=== PATIENT | female | born 1975 | race Caucasian/White ===

== ENCOUNTER → 2016-08-30 | Day surgery (SDC) | payer BC ==
[~2016-08-30] VITALS: Ht 172.7 cm; Wt 79.4 kg
[~2016-08-30] MED LIST: BACT800T OR; BUPIVACAINE HCL 0.5% 30 ML VIAL As Ordered ONE; BUPR1TAB17 PO; BUSP15TA47 PO; CITA20TA4 PO; CLINDAMYCIN 600 MG in APPROPRIATE DILUENT 1 EA IV ONE; FLEXERIL OR; FOLI1TAB OR; HYDR-3713 PO; HYDR-4274 PO; LIDOCAINE 1% SDV INJ 30 ML VIAL As Ordered ONE; LIDOCAINE 2% INJ 100 MG/5 ML SDV (FOR ANES.) As Ordered ONE; LORA1TAB OR; LR 1,000 ML IV SCH; MIDAZOLAM INJ 2 MG/2 ML VIAL (J2250) As Ordered ONE; MULTIVIT PO; NEUR100C OR; NEUR400C OR; OMEP20CA3 PO; ONDANSETRON 4MG/2ML VIAL (J2405) As Ordered ONE; OXAZ15CA2 OR; PERC5TAB8 OR; PROP80TA PO; PROPOFOL 200 MG/20 ML VIAL As Ordered ONE; PROZ20CA OR; THIA100T OR; TOLT1CAP PO; TRAZ100T OR; TRAZ300T2 OR; TRAZ50TA4 PO; TYLENOL #3 OR; WELL200T OR; dexameTHASONE 4 MG/ML 1ML VIAL (J1100) As Ordered ONE; fentaNYL 100 MCG/2 ML INJECTION (J3010) As Ordered ONE
--- NOTE | 2016-08-30 08:24 | RO ---
DATE OF PROCEDURE: 08/30/2016 PREPROCEDURE DIAGNOSIS: Painful retained hardware right foot. POSTPROCEDURE DIAGNOSIS: Painful retained hardware right foot. PROCEDURE: Removal of screw right first metatarsal. SURGEON: Cash Vizcarra DPM GLASS WASHER AND CARRIER: None. ANESTHESIA: Monitored anesthesia care with preoperative injection of 14 mL of 1:1 mixture of 1% lidocaine plain and 1/2% Marcaine plain. ESTIMATED BLOOD LOSS: Minimal. MATERIALS: #4-0 Vicryl, #4-0 Nylon. INJECTABLE: 8 mL lidocaine, 1% plain. COMPLICATIONS: None. CONDITION: Stable. Jennifer Molina is a 41-year-old female who presented to [facility] with complaints of painful prominent screw to her right first metatarsal. She presents today for screw removal. The patient's side and site were identified and marked in the preoperative holding area. Consent was reviewed and obtained. All risks, complications and alternatives to the procedure were explained to the patient in detail and all questions were answered. DESCRIPTION OF PROCEDURE: The patient was brought to the operating room and placed on the operating room table in supine position. Monitored anesthesia care was delivered by the anesthesia team. Preoperative injection of 14 mL of 1:1 mixture of 1% lidocaine plain and 1/2% Marcaine plain were injected to the right foot. The patient received clindamycin preoperatively. The right foot was prepped and draped in normal sterile fashion. Tourniquet was applied to the right ankle and inflated at 250 mmHg. A dorsal incision was drawn over the prominent screw site over the first metatarsal and carried through with a #15 blade. Due to patient movement, there was an additional 8 mL of 1% lidocaine plane injected at the beginning of the procedure. Dissected was carried down until the screw was identified and was removed with a 2.5 Arthrex headless screwdriver. Site was irritated with normal saline. Subcutaneous closure was performed with #4-0 Vicryl and skin closed with #4-0 Nylon. 1 mL Decadron was injected postoperatively. Sterile dressings were applied. Tourniquet was deflated. Patient was brought to postanesthesia care unit with vital signs stable and neurovascular status intact. She will be weight bearing as tolerated. She will followup in office in 2 days.
[2016-08-30 09:05] VITALS: BP 116/67
== END | disposition home or self-care (01) ==
LOC: M SDC 06:00
PROVIDERS: ATTEND Podiatrist Foot & Ankle Surgery
DX: T84.498A Other mechanical complication of other internal orthopedic devices, implants and grafts, initial encounter (principal); I10 Essential (primary) hypertension; F17.210 Nicotine dependence, cigarettes, uncomplicated; Z88.0 Allergy status to penicillin; Z79.899 Other long term (current) drug therapy; F41.9 Anxiety disorder, unspecified; F32.9 Major depressive disorder, single episode, unspecified
CPT/HCPCS: 20680; 84703; J1100; J2250; J2405; J3010

== ENCOUNTER 2016-12-20 10:41 | Emergency (ER) | payer BC ==
[~2016-12-20] VITALS: Ht 172.7 cm; Wt 86.8 kg
[~2016-12-20 10:41] MED LIST changes: -BUPIVACAINE HCL 0.5% 30 ML VIAL As Ordered ONE; -BUPR1TAB17 PO; +BUPR1TAB53 PO; -CLINDAMYCIN 600 MG in APPROPRIATE DILUENT 1 EA IV ONE; -HYDR-4274 PO; +HYDR50TA70 PO; -LIDOCAINE 1% SDV INJ 30 ML VIAL As Ordered ONE; -LIDOCAINE 2% INJ 100 MG/5 ML SDV (FOR ANES.) As Ordered ONE; -LR 1,000 ML IV SCH; -MIDAZOLAM INJ 2 MG/2 ML VIAL (J2250) As Ordered ONE; -ONDANSETRON 4MG/2ML VIAL (J2405) As Ordered ONE; -PROPOFOL 200 MG/20 ML VIAL As Ordered ONE; +TRAZ50TA11 PO; -TRAZ50TA4 PO; -dexameTHASONE 4 MG/ML 1ML VIAL (J1100) As Ordered ONE; -fentaNYL 100 MCG/2 ML INJECTION (J3010) As Ordered ONE
[2016-12-20] MEDS ORDERED: OXAZEPAM 15 MG CAP PO ONE (11:45)
[2016-12-20 11:55] LABS: MEAN CORPUSCULAR HEMOGLOBIN 31.7 pg (27.0-33.0); MEAN CORPUSCULAR HGB CONC 34.4 g/dl (32.0-36.5); MEAN CORPUSCULAR VOLUME 92.2 fl (80.0-96.0); RED CELL DISTRIBUTION WIDTH 13.3 % (11.5-14.5); WHITE BLOOD COUNT 6.2 K/mm3 (4.0-10.0)
[2016-12-20 12:17] LABS: METHADONE URINE NEGATIVE (NEGATIVE)
[2016-12-20 12:21] LABS: CONTROL LINE HCG INT CTR LINE PRESENT
[2016-12-20 12:29] LABS: ALBUMIN 3.4 GM/DL (3.2-5.2); ALBUMIN/GLOBULIN RATIO 0.87 (1.00-1.93); ALKALINE PHOSPHATASE 78 U/L (45-117); ALT/SGPT 38 U/L (12-78); ANION GAP 11 MEQ/L (8-16); AST/SGOT 42 U/L (15-37); BILIRUBIN,DIRECT 0.1 MG/DL (0.0-0.2); BILIRUBIN,TOTAL 0.3 MG/DL (0.2-1.0); BLOOD UREA NITROGEN 7 MG/DL (7-18); CALCIUM LEVEL 9.2 MG/DL (8.5-10.1); CARBON DIOXIDE LEVEL 25 MEQ/L (21-32); CHLORIDE LEVEL 102 MEQ/L (98-107); CREATININE FOR GFR 0.83 MG/DL (0.55-1.02); GLOMERULAR FILTRATION RATE > 60.0 (>58); GLUCOSE, FASTING 96 MG/DL (70-105); POTASSIUM SERUM 3.8 MEQ/L (3.5-5.1); SODIUM LEVEL 138 MEQ/L (136-145); TOTAL PROTEIN 7.3 GM/DL (6.4-8.2)
[2016-12-20 14:07] VITALS: BP 117/85
[2016-12-21] MEDS ORDERED: HYDR50CA2 PO (19:56)
[2016-12-21] MEDS ORDERED: TRAZ50TA11 PO (19:56)
[2016-12-21] MEDS ORDERED: PROP80CA PO (19:56)
== END 2016-12-20 14:08 | disposition home or self-care (01) ==
LOC: M ED 10:41
DX: F41.9 Anxiety disorder, unspecified (principal); F10.10 Alcohol abuse, uncomplicated; Z88.0 Allergy status to penicillin; Z88.5 Allergy status to narcotic agent; Z79.899 Other long term (current) drug therapy
CPT/HCPCS: 36415; 80048; 80076; 80307; 84443; 84703; 85027; 99284; G0480

== ENCOUNTER 2016-12-21 15:12 | Inpatient (IN) | payer BC ==
[~2016-12-21] VITALS: Ht 172.7 cm; Wt 88.7 kg
[2016-12-21 16:40] LABS: MEAN CORPUSCULAR HEMOGLOBIN 31.7 pg (27.0-33.0); MEAN CORPUSCULAR HGB CONC 34.4 g/dl (32.0-36.5); MEAN CORPUSCULAR VOLUME 92.2 fl (80.0-96.0); RED CELL DISTRIBUTION WIDTH 13.3 % (11.5-14.5)
[2016-12-21 16:46] LABS: METHADONE URINE NEGATIVE (NEGATIVE)
[2016-12-21 16:49] LABS: CONTROL LINE HCG INT CTR LINE PRESENT
[2016-12-21 17:11] LABS: ALBUMIN 3.5 GM/DL (3.2-5.2); ALBUMIN/GLOBULIN RATIO 0.88 (1.00-1.93); ALKALINE PHOSPHATASE 81 U/L (45-117); ALT/SGPT 40 U/L (12-78); ANION GAP 11 MEQ/L (8-16); AST/SGOT 45 U/L (15-37); BILIRUBIN,DIRECT < 0.1 MG/DL (0.0-0.2); BILIRUBIN,TOTAL 0.2 MG/DL (0.2-1.0); BLOOD UREA NITROGEN 8 MG/DL (7-18); CALCIUM LEVEL 8.7 MG/DL (8.5-10.1); CARBON DIOXIDE LEVEL 25 MEQ/L (21-32); CHLORIDE LEVEL 102 MEQ/L (98-107); CREATININE FOR GFR 0.95 MG/DL (0.55-1.02); GLOMERULAR FILTRATION RATE > 60.0 (>58); GLUCOSE, FASTING 97 MG/DL (70-105); POTASSIUM SERUM 3.6 MEQ/L (3.5-5.1); SODIUM LEVEL 138 MEQ/L (136-145); TOTAL PROTEIN 7.5 GM/DL (6.4-8.2)
[2016-12-21] MEDS ORDERED: PROP80CA PO (19:56)
[2016-12-21] MEDS ORDERED: TRAZ50TA11 PO (19:56)
[2016-12-21] MEDS ORDERED: HYDR50CA2 PO (19:56)
[2016-12-21] MEDS ORDERED: OXAZEPAM 15 MG CAP PO ONE (20:00)
[2016-12-21] MEDS ORDERED: ONDANSETRON 4 MG ORAL DISINTEGRATING TAB (S0181) PO ONE (20:00)
[2016-12-22] MEDS ORDERED: PHENobarbital 30 MG TAB PO ONE (01:45)
[2016-12-22] MEDS ORDERED: MOM 30ML SUSPENSION UDC PO PRN (05:15)
[2016-12-22] MEDS ORDERED: MAALOX 30 ML SUSP *UDC PO PRN (05:15)
[2016-12-22 05:16] VITALS: BP 124/86
[2016-12-22] MEDS ORDERED: BUPR150T3 PO (06:11)
[2016-12-22] MEDS: PROPRANOLOL 80 MG LA CAP PO SCH (09:46)
[2016-12-22] MEDS: busPIRone 5 MG TAB PO SCH ×2 (09:47→20:33)
[2016-12-22] MEDS: buPROPion **XL** TABLET 150MG (WELLBUTRIN XL) PO SCH (09:47)
[2016-12-22] MEDS: OMEPRAZOLE 20 MG CAP PO SCH (09:47)
[2016-12-22] MEDS: TOLTERODINE TARTRATE 2 MG LA CAP (DETROL LA) PO SCH ×2 (09:47→20:33)
[2016-12-22] MEDS: CitaloPRAM (CeleXA) 10 MG TABLET PO SCH (09:47)
[2016-12-22] MEDS: hydrOXYzine 50 MG TAB PO PRN (09:49)
--- NOTE | 2016-12-22 10:08 | HPEPDOC ---
Medical History and Physical Date of Admission Dec 22, 2016 at 03:13 History and Physical PCP: CAMERON Hernandez. ATTENDING: Dr. Nick Smith . HPI. 41-year-old female admitted to [facility]S [facility] 234 BEDS AT THE [facility] related to unspecified depressive disorder, being medically examined today. Patient is reporting some abdominal pain in the left upper and lower quadrant areas. She reports nausea. Denies vomiting. Patient states she has had some diarrhea. She has not been eating very well. Denies any fevers, chills, weakness, fatigue, VALDOVINOS, CP, SOB, cough, palpitations, abdominal pain, N/V/D or changes in bowel or bladder habits. PMHx: Anxiety Depression Insomnia GERD OAB Hypertension Osteoarthritis NCOG Alcohol use PSHX: Cholecystectomy Cystoscopy Ankle arthroscopy Bunionectomy SOCHX: Resides in: [facility] Marital Status: Kids: 2 Tobacco use: One cigarette every other day ETOH: One half liter of vodka or 6 beers "most days"18 years on and off. States she has quit on her own for 1-2 years at a time. She has been drinking this amount for the past year. Illicit Drugs: Denies IV Drug Use: Denies Tattoos done unprofessionally: Denies FAMHX: Mother: Alive, history of osteoporosis Father: Alive, Parkinson's disease Siblings: 3 brothers Alive, well Children: Alive, well Unexpected deaths due to medical reasons: None. ROS: As noted in HPI, otherwise 11pt ROS of systems reviewed and remarkable only for LMP 12/08/16 PE: GEN: 41 yo F, appears stated age. Well-nourished, well developed. No acute distress. Alert and oriented x 3. Pleasant, interactive. HEENT: Normocephalic, atraumatic. Pupils are equal, round, and reactive to light. Extraocular movements are intact. No nystagmus appreciated. Sclera are nonicteric. Conjunctiva without injection. Nose midline. Nasal turbinates without bogginess. EACs both patent BL. TMs both visualized and parmar with good cone of light, no bulging or erythema. No facial asymmetry. Moist mucous membranes. Dentition fair. Pharynx pink and moist, no cobblestoning. Neck supple , trachea midline. No lymphadenopathy or thyromegaly appreciated. CHEST: Regular rate and rhythm, +S1, +S2 LUNGS: Clear to auscultation bilaterally. No wheezes, rales, or rhonchi. Breathing appears symmetric and easy. Patient is speaking in full sentences. No accessory muscle use. ABD: Round, soft, mild tenderness with palpation in the left upper and lower quadrant, non-distended. +Bowel sounds throughout. No rebound or guarding. No costovertebral angle tenderness. EXT: Pulses 2+ bilaterally dorsalis pedis and radial. No lower extremity edema appreciated. SKIN: [place], dry, warm. Capillary refill <2sec. No rashes. NEURO: Alert and oriented x 3. Cranial nerves III-XII are intact. No focal deficits appreciated. EKG: Pending. A&P: 41-year-old female admitted to COUNTS INCLUDE 234 BEDS AT THE [facility] related to unspecified depressive disorder 1. Psych. Plan per Psychiatry. Obtain baseline EKG to assure the safety of psychiatric medications as they can prolong the QT interval. 2. Nicotine dependence. Patch available. 3. Abdominal pain. Request CBC/CMP/urinalysis/urine culture. CT scan abdomen and pelvis. GI panel. Monitor. 4. Follow up with PCP on discharge. 5. Substance abuse. Withdrawal per psychiatry. Add MVI, Thiamine, and Folic Acid supplementation. 6. Elevated LFT. Recheck CMP. 7. GERD. Continue Prilosec 20 mg daily. 8. Hypertension. Continue propranolol 80 mg by mouth daily. 9. OAB. Continue Detrol 4 mg twice a day. 10. Staff member Sridevi DEJESUS present throughout exam. Vital Signs Vital Signs Date Time Temp Pulse Resp B/P (MAP) Pulse Ox O2 Delivery O2 Flow Rate FiO2 12/22/16 09:46 87 136/96 12/22/16 05:16 98.2 16 12/22/16 01:59 93 Room Air Laboratory Data Labs 24H Laboratory Tests 2 12/21/16 16:02: Anion Gap 11, Glomerular Filtration Rate > 60.0, Calcium Level 8.7, Aspartate Amino Transf (AST/SGOT) 45H, Alanine Aminotransferase (ALT/SGPT) 40, Alkaline Phosphatase 81, Total Bilirubin 0.2, Direct Bilirubin < 0.1, Total Protein 7.5, Albumin 3.5, Albumin/Globulin Ratio 0.88L, Thyroid Stimulating Hormone (TSH) 1.290, Human Chorionic Gonadotropin, Qual NEGATIVE, Salicylates Level < 1.7L, Urine Amphetamines Screen NEGATIVE, Urine Benzodiazepines Screen NEGATIVE, Urine Opiates Screen NEGATIVE, Urine Methadone Screen NEGATIVE, Acetaminophen Level < 2.0L, Urine Barbiturates Screen NEGATIVE, Urine Phencyclidine Screen NEGATIVE, Urine Cocaine Metabolite Screen NEGATIVE, Urine Cannabinoids Screen NEGATIVE, Ethyl Alcohol Level 0.317H CBC/BMP Laboratory Tests 12/21/16 16:02 Red Blood Count 3.96 L, Mean Corpuscular Volume 92.2, Mean Corpuscular Hemoglobin 31.7, Mean Corpuscular Hemoglobin Concent 34.4, Red Cell Distribution Width 13.3 Home Medications Scheduled Bupropion Hcl (Bupropion HCl Xl) 150 Mg Tab, 150 MG PO DAILY for DEPRESSION Buspirone HCl (Buspirone HCl) 15 Mg Tab, 15 MG PO BID Citalopram Hydrobromide (Citalopram Hydrobromide) 20 Mg Tab, 30 MG PO DAILY Hydroxyzine Pamoate (Hydroxyzine Pamoate) 50 Mg Cap, 50 MG PO BID Omeprazole (Omeprazole) 20 Mg Cap, 20 MG PO DAILY Propranolol HCl (Propranolol HCl ER) 80 Mg Cap, 80 MG PO DAILY Tolterodine Tartrate (Tolterodine Tartrate ER) 4 Mg Cap, 4 MG PO BID Trazodone HCl (Trazodone HCl) 50 Mg Tab, 100 MG PO QHS Scheduled PRN Trazodone HCl (Trazodone HCl) 50 Mg Tab, 50 MG PO QHS PRN for SLEEP Allergies Coded Allergies: Penicillins (Verified Allergy, Intermediate, RASH, 08/30/16) Penicillins Cross Reactors (Verified Allergy, Intermediate, RASH, 08/30/16) Codeine (Unverified Allergy, Mild, rash, 08/30/16) Bianka Cheng Dec 22, 2016 10:08
[2016-12-22 10:43] LABS: BASO % 0.3 % (0.0-1.0); EOS # 0.1 K/mm3 (0.0-0.50); EOS % 2.1 % (0.0-3.0); LARGE UNSTAINED CELL # 0.1 K/mm3 (0.0-0.4); LARGE UNSTAINED CELL % 1.7 % (0.0-4.0); LYMPH # 1.7 K/mm3 (1.5-4.5); LYMPH % 29.1 % (24.0-44.0); MEAN CORPUSCULAR HEMOGLOBIN 31.2 pg (27.0-33.0); MEAN CORPUSCULAR HGB CONC 33.7 g/dl (32.0-36.5); MEAN CORPUSCULAR VOLUME 92.6 fl (80.0-96.0); MONO # 0.3 K/mm3 (0.0-0.8); MONO % 5.6 % (0.0-5.0); NEUTROPHILS # 3.4 K/mm3 (1.8-7.7); NEUTROPHILS % 61.3 % (36.0-66.0); PLATELET COUNT, AUTOMATED 228 k/mm3 (150-450); RED CELL DISTRIBUTION WIDTH 13.1 % (11.5-14.5); WHITE BLOOD COUNT 5.5 K/mm3 (4.0-10.0)
[2016-12-22 11:09] LABS: ALBUMIN/GLOBULIN RATIO 0.88 (1.00-1.93); ALKALINE PHOSPHATASE 68 U/L (45-117); ALT/SGPT 30 U/L (12-78); ANION GAP 6 MEQ/L (8-16); AST/SGOT 31 U/L (15-37); BILIRUBIN,TOTAL 0.4 MG/DL (0.2-1.0); BLOOD UREA NITROGEN 10 MG/DL (7-18); CALCIUM LEVEL 8.7 MG/DL (8.5-10.1); CARBON DIOXIDE LEVEL 30 MEQ/L (21-32); CHLORIDE LEVEL 103 MEQ/L (98-107); CREATININE FOR GFR 0.95 MG/DL (0.55-1.02); GLOMERULAR FILTRATION RATE > 60.0 (>58); GLUCOSE, FASTING 113 MG/DL (70-105); POTASSIUM SERUM 4.2 MEQ/L (3.5-5.1); SODIUM LEVEL 139 MEQ/L (136-145); TOTAL PROTEIN 6.4 GM/DL (6.4-8.2)
[2016-12-22 12:07] VITALS: BP 134/98
[2016-12-22] MEDS: ACETAMINOPHEN TAB 650MG DOSE (2X325MG) PO PRN (12:11)
[2016-12-22 12:13] VITALS: BP 134/98
[2016-12-22] MEDS: MULTIVITAMINS/MINERALS THERAP 1 TAB PO SCH (12:58)
[2016-12-22] MEDS: THIAMINE 100 MG TAB PO SCH (12:58)
[2016-12-22] MEDS: FOLIC ACID 1 MG TAB PO SCH (12:59)
--- NOTE | 2016-12-22 17:35 | ECGEPIP ---
Stationary ECG Study [facility] Test Date: 2016-12-22 Pat Name: YOSELIN LYON Department: Room: [place] [address] Gender: F Sql [employer] Developer: RYAN : 1975 Requested By: Bianka Cheng Order Number: [id number] Reading MD: Nick Smith Measurements Intervals [place] Rate: 69 P: 50 WI: 163 QRS: 20 QRSD: 84 T: 10 QT: 430 QTc: 461 Interpretive Statements SINUS RHYTHM MODERATE T-WAVE ABNORMALITY, new from tracing done 11-29-14 Electronically Signed On 12-22-2016 17:35:27 EDT by Nick Smith
[2016-12-22 18:26] VITALS: BP 118/73
--- NOTE | 2016-12-22 18:29 | REP ---
CT ABDOMEN AND PELVIS WITHOUT IV CONTRAST: 12/22/2016. Clinical History: Abdominal pain. There are no prior pertinent studies. Technique: Noncontrast scanning performed with the coronal and sagittal reconstructions. CT abdomen: Lung bases were clear. Heart not enlarged. There is no pericardial thickening or effusion. I see no definite hiatal hernia. No hepatosplenomegaly, focal hepatic or splenic lesion, intrahepatic biliary dilatation or ascites. Clips from prior cholecystectomy noted in the gallbladder fossa. Pancreas without mass, ductal dilatation or adjacent inflammatory change. Adrenal glands are normal. Some scarring posteriorly in the upper pole right kidney with cortical thinning and irregularity. Calcification along the posterior cortex as well in the upper pole on the right. I see no hydronephrosis or hydroureter on the right. The left kidney shows no scar, atrophy or hydronephrosis. No abnormal calcification on either side. The kidneys show no perinephric fluid collection with only minimal stranding, which is normal. The ureters show normal course to the bladder without dilatation or periureteral inflammatory change. Bone windows show no compression deformity of destructive lesion. No posterior element abnormality. Visualized ribs intact. CT pelvis: Bony hips, pelvis, SI joints, sacrum, acetabuli and ischium were all unremarkable. Bladder shows no wall thickening or mass. Uterus anteverted. It is not enlarged. There are a few pelvic phleboliths. Abdominal and pelvic portions of the colon show no sign of colitis, diverticulitis, stricture, or mass. Small bowel loops unremarkable. Just above and posterior to the right side of the uterine fundus is a soft tissue focus suggesting ovary within this. There is a 14 mm dense rim calcification and I could not exclude that this is a dermoid with a calcification likely a tooth. No ventral or inguinal hernia. Pelvic free fluid or adenopathy. No other findings. Impression: 1. No evidence of hydronephrosis, hydroureter, stones in the kidneys, ureters or bladder. 2. Status post cholecystectomy. The pancreas intact. 3. Dense rim calcification in the deep pelvis to the right of the fundus of the uterus in a configuration that suggests a small tooth. I suspect a dermoid. Please correlate with ultrasound. 4. No colitis, diverticulitis, stricture, ascites, abscess, mass or other acute finding. There is no renal, ureteral or bladder stone. No hydronephrosis or hydroureter. Signed by Kelvin Maria MD 12/22/2016 08:17 P
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
[2016-12-22 20:24] VITALS: BP 118/73
[2016-12-22] MEDS: traZODone 50 MG TAB PO PRN (20:33)
[2016-12-22] MEDS: LORazepam 2 MG TAB PO PRN (20:33)
[2016-12-23 08:13] VITALS: BP 121/79
[2016-12-23] MEDS: TOLTERODINE TARTRATE 2 MG LA CAP (DETROL LA) PO SCH ×2 (08:21→20:15)
[2016-12-23] MEDS: THIAMINE 100 MG TAB PO SCH (08:21)
[2016-12-23] MEDS: busPIRone 5 MG TAB PO SCH ×2 (08:21→20:15)
[2016-12-23] MEDS: ACETAMINOPHEN TAB 650MG DOSE (2X325MG) PO PRN ×2 (08:21→23:12)
[2016-12-23] MEDS: MULTIVITAMINS/MINERALS THERAP 1 TAB PO SCH (08:21)
[2016-12-23] MEDS: FOLIC ACID 1 MG TAB PO SCH (08:21)
[2016-12-23] MEDS: LORazepam 2 MG TAB PO PRN ×3 (08:21→15:07)
[2016-12-23] MEDS: OMEPRAZOLE 20 MG CAP PO SCH (08:21)
[2016-12-23] MEDS: PROPRANOLOL 80 MG LA CAP PO SCH (08:22)
[2016-12-23] MEDS: CitaloPRAM (CeleXA) 10 MG TABLET PO SCH (08:22)
[2016-12-23] MEDS: buPROPion **XL** TABLET 150MG (WELLBUTRIN XL) PO SCH (08:22)
[2016-12-23 12:00] VITALS: BP 120/74
[2016-12-23 14:51] VITALS: BP 121/89
[2016-12-23 18:00] VITALS: BP 121/89
--- NOTE | 2016-12-23 19:38 | MHIPNPDOC ---
[facility] Progress Note Progress Note DATE OF SERVICE: 12/23/16 HISTORY: Patient is 41-year-old female voluntary admission who presented to the emergency room after her outpatient provider instructed her to pursue voluntary inpatient treatment for detox and symptoms of anxiety. Patient reports a long standing struggle with alcohol, indicates she consumed approximately 1 liter of "gin and juice" two days prior to admission and consumed one 12 ounce glass of mouthwash day prior to admission. Patient states she was last hospitalized at [facility] in 2010 for alcohol abuse and overdose, notes she has had multiple inpatient/rehabilitation admissions, reports history of suicide attempts beginning age 8 with last attempt being 7 years ago, estimates she has made approximately 10 total suicide attempts, indicates "I usually overdose, when I was 8 I tried to strangle myself, and one time I tried by hanging." Patient reports history of auditory hallucinations involving hearing music, notes last occurred one week ago, and history of visual hallucinations involving seeing spiders and other animals "but only when I'm in withdrawal," notes last experienced symptoms "a couple months ago. Tobacco Cutter met with patient this morning to assess treatment progress on inpatient unit. Patient reports current anxiety level 5/10, depression 2/10, denies suicidal and homicidal ideation, denies auditory and visual hallucinations, and denies urge to engage in self-injurious behavior. Patient states to hand sign writer, "I was doing fine but now I'm getting a headache because of the increased anxiety and having because I'm worried about the extra appointment on the have if I'm forced to go to substance abuse treatment." Tobacco Cutter reassured patient that she would not be "forced" to participate in treatment, however, hand sign writer communicated clearly that patient's outpatient provider has indicated that he feels strongly that patient is in need of substance abuse treatment support in order to avoid relapse. Tobacco Cutter informed patient that the most appropriate level of substance abuse treatment would be inpatient which patient indicated she will not participate in. Patient also stated she will not participate in outpatient treatment, however, was able to verbalize awareness that outpatient provider feels she needs to be in some level of treatment. Patient explained to hand sign writer that she cannot participate in substance abuse treatment because, "it's just one more appointment and I'm too nervous for one more appointment and even if I stop drinking and I have less anxiety I don't need it, I've done the treatment before." Patient denied symptoms of withdrawal at time of interaction noting she feels "better," states she occasionally experiences symptoms of craving in the form of "dreaming that I'm drinking." Patient remains on CIWA protocol, has utilized Ativan this morning with good effect reported. Patient indicates current medication regimen is effective and denies medication side effects, is agreeable to Celexa dose increase in effort to further address symptoms of anxiety and depression. Patient reported some improvement in energy level, indicated appetite is stable, denied challenges with concentration and focus and sleep. Patient denied symptoms of physical pain and presented with no signs of acute distress at time of interaction. Of Note: Tobacco Cutter was informed late afternoon the patient was experiencing AVH. Tobacco Cutter met with patient who stated "sometimes I see my family when my eyes are closed, and sometimes I hear music coming out of the heater in my room." Patient has indicated that she is experienced AVH in the past when going through withdrawal, had already received Ativan. Patient was engageable, brightened, did not appear to be responding to internal stimuli, was redirectable, did not appear to be experiencing distress. Low-dose Zyprexa PRN was made available to patient should symptoms of AVH continue/worsen. Addendum: 12/23/16 Telephone consult completed with Dr. Mosley indicated patient is relatively new to him and he has concerns about the safety and effectiveness of treating patient in the outpatient environment when she is engaging in routine and excessive abuse of alcohol. Dr. Mosley is requesting to be contacted prior to patient's discharge and has indicated that he may be called by regular or weekend providers for treatment recommendations/guidance if needed. VITALS: See below NEW TEST RESULTS: No new results PAST MEDICAL/SURGICAL HISTORY: GERD, OAB, hypertension, osteoarthritis, cholecystectomy, cystoscopy, ankle arthroscopy, bunionectomy. Patient denies history of seizure and head injury. Labs on admission indicate low RBC, Hgb, HCT, anion gap, albumin, AGR, and elevated mono %, and glucose UDS negative, EtOH 0.317 EKG sinus rhythm moderate T-wave abnormality, new from tracing done 11/29/14. She is asymptomatic, clinical consultation completed with recommendation made for outpatient follow-up. Urine culture - pending CT scan abdomen and pelvis - pending CURRENT MEDICATIONS: See below MENTAL STATUS EXAMINATION: General appearance: Patient is a 41-year old female who is cooperative, engageable, makes fair eye contact, appears disheveled, is dressed in hospital clothing, ambulates with steady gait, appears stated age Speech: Of normal rate, rhythm, low volume, spontaneous, coherent. Thought processes: Linear, logical, goal-directed Thought content: Logical, rational, no tangentiality or paranoia noted, perseverative to being too anxious to leave the house/drive. Abstract reasoning and computation: Appear intact. Description of associations: Intact. Description of abnormal or psychotic thoughts: Denies suicidal or homicidal ideation, denies auditory or visual hallucinations, does not appear to be responding to internal stimuli, does not endorse bizarre or paranoid ideation, denies preoccupation with violence or obsessions. Judgment: Poor Insight: Poor Orientation: A and O 3 Recent and remote memory: Appear intact Attention span and concentration: Appear adequate Fund of knowledge: Appear Within normal limits Mood: "Okay but anxious because I feel like people are forcing me to go to substance abuse treatment and I'm going to have more appointments." Patient appears depressed and anxious, no mood lability noted. Affect: Blunted, brightens at times DIAGNOSES: Major depressive disorder, generalized anxiety disorder, alcohol use disorder, rule out substance-induced mood disorder, rule out personality disorder ASSESSMENT: Patient appears to be slowly adjusting to unit, has been visible at times, has not been participating in unit programming but has been cooperative with staff, engageable, and has presented with no behavior management challenges. Patient reiterates today that she is not interested in participating in inpatient, outpatient treatment or in AA upon discharge, is aware that outpatient provider is concerned about her ability to continue to provide psychiatric medication management if she does not seek treatment for her substance abuse problem. Patient indicates current medication regimen is generally effective, is agreeable to antidepressant dose increase in effort to further address symptoms of anxiety and depression, denies medication side effects, and is medication compliant. Patient has utilized Ativan to address symptoms of withdrawal per [place] protocol, will require monitoring to ensure remission of withdrawal symptoms and to monitor frequency of Ativan use. Patient denies symptoms of craving or withdrawal this morning, reiterates she has a history of experiencing sweating and shakiness and AVH while in withdrawal state. Patient denies current suicidal and homicidal ideation and verbalizes awareness of how to access supportive services on the unit if needed. Will increase patient's Celexa today and will continue to monitor patient's response to medications and for medication side effects, will also continue to evaluate patient safety and discharge readiness. Patient indicates when prepared for discharge she would like to return home with and resume outpatient psychotherapy and medication management through [facility]. Patient verbalizes awareness that strong recommendation is being made for her to participate in inpatient/outpatient substance abuse treatment, is declining at this time. Patient is voluntary admission and should she elect to discharge, and if she is stable enough for discharge, outpatient provider, Dr. Mosley, is requesting notification prior to patient's discharge. MANAGEMENT PLAN: Increase Celexa to 40 mg po q am. Continue Wellbutrin XL 150 mg po q am, BuSpar 15 mg po BID, hydroxyzine 50 mg po BJD PRN anxiety, trazodone 50 mg po hs PRN insomnia. Patient is also taking propranolol 80 mg po q am which appears to be prescribed primarily for blood pressure. Initiate med trial Zyprexa 2.5 mg po q 6 hours PRN agitation. Continue CIWA protocol Vitals QID Maintain safety precautions Patient to attend groups and participate in unit programming to develop coping strategies Engage patient in discharge planning process and arrange meeting with support system to ensure safe discharge planning when appropriate Patient to follow up with PCM regarding recent EKG results and any other health concerns upon discharge TIME SPENT COORDINATING CARE: 35 minutes Vital Signs Vital Signs Date Time Temp Pulse Resp B/P (MAP) Pulse Ox O2 Delivery O2 Flow Rate FiO2 12/23/16 18:00 98.9 77 16 121/89 (100) 12/22/16 01:59 93 Room Air Current Medications Current Medications Acetaminophen (Tylenol Tab) 650 mg Q6HP PRN PO HEADACHE or DISCOMFORT Last administered on 12/23/16 08:21; Start 12/22/16 at 05:15; Stop 01/21/17 at 05:14 Al Hydrox/Mg Hydrox/Simethicone (Mylanta) 30 ml Q4HP PRN PO HEARTBURN/ INDIGESTION; Start 12/22/16 at 05:15; Stop 01/21/17 at 05:14 Bupropion HCl (Wellbutrin Xl) 150 mg DAILY PO Last administered on 12/23/16 08 :22; Start 12/22/16 at 09:00; Stop 01/21/17 at 08:59 Buspirone HCl (Buspar) 15 mg BID PO Last administered on 12/23/16 08:21; Start 12/22/16 at 09:00; Stop 01/21/17 at 08:59 Citalopram Hydrobromide (CeleXA) 30 mg DAILY PO Last administered on 12/23/16 08:22; Start 12/22/16 at 09:00; Stop 12/23/16 at 18:20; Status DC Citalopram Hydrobromide (CeleXA) 40 mg DAILY PO ; Start 12/24/16 at 09:00; Stop 01/23/17 at 08:59 Folic Acid (Folic Acid) 1 mg DAILY PO Last administered on 12/23/16 08:21; Start 12/22/16 at 09:00; Stop 01/21/17 at 08:59 Home Med (Med Rec Complete!) ASDIRECTED XX ; Start 12/21/16 at 20:00; Stop at 20:01; Status DC Hydroxyzine HCl (Atarax) 50 mg BIDP PRN PO ANXIETY Last administered on 09:49; Start 12/22/16 at 05:15; Stop 01/21/17 at 05:14 Lorazepam (Ativan) 2 mg ASDIRECTED PRN PO SEE PROTOCOL Last administered on 08:21; Start 12/22/16 at 20:00; Stop 12/29/16 at 19:59 Magnesium Hydroxide (Milk Of Magnesia) 30 ml DAILYPRN PRN PO CONSTIPATION; Start 12/22/16 at 05:15; Stop 01/21/17 at 05:14 Multivitamins (Theragram-M) 1 tab DAILY PO Last administered on 12/23/16 08:21 ; Start 12/22/16 at 09:00; Stop 01/21/17 at 08:59 Olanzapine (ZyPREXA) 2.5 mg Q6HP PRN PO AGITATION; Start 12/23/16 at 18:15; Stop 01/22/17 at 18:14 Omeprazole (PriLOSEC) 20 mg DAILY PO Last administered on 12/23/16 08:21; Start 12/22/16 at 09:00; Stop 01/21/17 at 08:59 Propranolol HCl (Inderal La) 80 mg DAILY PO Last administered on 12/23/16 08: 22; Start 12/22/16 at 09:00; Stop 01/21/17 at 08:59 Thiamine HCl (Thiamine HCl) 100 mg DAILY PO Last administered on 12/23/16 08: 21; Start 12/22/16 at 09:00; Stop 01/21/17 at 08:59 Tolterodine Tartrate (Detrol La) 4 mg BID PO Last administered on 12/23/16 08: 21; Start 12/22/16 at 09:00; Stop 01/21/17 at 08:59 Trazodone HCl (Desyrel) 50 mg QHSP PRN PO INSOMNIA Last administered on 20:33; Start 12/22/16 at 05:15; Stop 01/21/17 at 05:14 Allergies Coded Allergies: Penicillins (Verified Allergy, Intermediate, RASH, 08/30/16) Penicillins Cross Reactors (Verified Allergy, Intermediate, RASH, 08/30/16) Codeine (Unverified Allergy, Mild, rash, 08/30/16) Cat Robin Dec 23, 2016 19:38
[2016-12-23] MEDS: traZODone 50 MG TAB PO PRN (20:15)
[2016-12-23] MEDS: hydrOXYzine 50 MG TAB PO PRN (20:15)
[2016-12-23 20:38] VITALS: BP 121/89
[2016-12-24] VITALS (8 sets, daily range): BP systolic 109–132; BP diastolic 77–90
[2016-12-24] MEDS: OLANZapine 2.5MG TABLET PO PRN ×2 (00:49→15:21)
[2016-12-24] MEDS: LORazepam 2 MG TAB PO PRN ×4 (03:15→21:19)
--- NOTE | 2016-12-24 08:50 | MHIPNPDOC ---
[facility] Progress Note Progress Note DATE OF SERVICE: 12/24/16 HISTORY: day 3 of admission.Patient is 41-year-old female voluntary admission who presented to the emergency room after her outpatient provider instructed her to pursue voluntary inpatient treatment for detox and symptoms of anxiety. Patient reports a long standing struggle with alcohol, indicates she consumed approximately 1 liter of "gin and juice" two days prior to admission and consumed one 12 ounce glass of mouthwash day prior to admission. Patient states she was last hospitalized at [facility] in 2010 for alcohol abuse and overdose, notes she has had multiple inpatient/rehabilitation admissions, reports history of suicide attempts beginning age 8 with last attempt being 7 years ago, estimates she has made approximately 10 total suicide attempts, indicates "I usually overdose, when I was 8 I tried to strangle myself, and one time I tried by hanging." Patient reports history of auditory hallucinations involving hearing music, notes last occurred one week ago, and history of visual hallucinations involving seeing spiders and other animals "but only when I'm in withdrawal," notes last experienced symptoms "a couple months ago. VITAL SIGNS: See below. NEW TEST RESULTS: na CURRENT MEDICATIONS: See below. MENTAL STATUS EXAMINATION: Patient is a 41-year old female, who is wearing hospital attire, reading in her room, alert and talkative, asking questions. Speech: Is clear and logical Language skills are grossly intact Thought processes including: organized and goal directed Thought content: appropriate. Abstract reasoning, and computation: good. Description of associations: good. Description of abnormal or psychotic thoughts: no psychotic symptoms illicted or reported. Pt is no longer considering suicide. Pt denies hearing voices or music in her head today. Judgment: fair. Insight: good. Orientation: oriented to surroundings, place, time and person Recent and remote memory: appears intact. Attention span and concentration: adequate during interaction Fund of knowledge: full Mood: euthymic Affect: congruent. DIAGNOSES: Major depressive disorder, generalized anxiety disorder, alcohol use disorder, rule out substance-induced mood disorder, rule out personality disorder ASSESSMENT:pt interviewed in the absence of her usual provider. She is withdrawing from alcohol intoxication without difficulty. She did request Nicorette gum which was provided for her. Pt asked about applying for SSDI benefits as she stated she wanted to contribute to the family. [employer] provided details including obtaining the form from the office. Pt informed that most claims are denied the first time around but she may appeal. It was explained the process can take several years before benefits are received. Pt encouraged to be patient, persistent and to remain engaged in treatment. pt remained in her room most of the day. observed in the milieu after lunch. expected her family to be here today for a family meeting. appeals writer not aware it this transpired or not. MANAGEMENT PLAN: 12/23/16 Telephone consult completed with Dr. Mosley indicated patient is relatively new to him and he has concerns about the safety and effectiveness of treating patient in the outpatient environment when she is engaging in routine and excessive abuse of alcohol. Dr. Mosley is requesting to be contacted prior to patient's discharge and has indicated that he may be called by regular or weekend providers for treatment recommendations/guidance if needed. Continue CIWA protocol. Continue close observation. Encourage participation in therapeutic milieu. TIME SPENT: 15 minutes. Vital Signs Vital Signs Date Time Temp Pulse Resp B/P (MAP) Pulse Ox O2 Delivery O2 Flow Rate FiO2 12/24/16 06:29 97.0 79 16 119/80 (93) 12/22/16 01:59 93 Room Air Current Medications Current Medications Acetaminophen (Tylenol Tab) 650 mg Q6HP PRN PO HEADACHE or DISCOMFORT Last administered on 12/23/16 23:12; Start 12/22/16 at 05:15; Stop 01/21/17 at 05:14 Al Hydrox/Mg Hydrox/Simethicone (Mylanta) 30 ml Q4HP PRN PO HEARTBURN/ INDIGESTION; Start 12/22/16 at 05:15; Stop 01/21/17 at 05:14 Bupropion HCl (Wellbutrin Xl) 150 mg DAILY PO Last administered on 12/23/16 08 :22; Start 12/22/16 at 09:00; Stop 01/21/17 at 08:59 Buspirone HCl (Buspar) 15 mg BID PO Last administered on 12/23/16 20:15; Start 12/22/16 at 09:00; Stop 01/21/17 at 08:59 Citalopram Hydrobromide (CeleXA) 30 mg DAILY PO Last administered on 12/23/16 08:22; Start 12/22/16 at 09:00; Stop 12/23/16 at 18:20; Status DC Citalopram Hydrobromide (CeleXA) 40 mg DAILY PO ; Start 12/24/16 at 09:00; Stop 01/23/17 at 08:59 Folic Acid (Folic Acid) 1 mg DAILY PO Last administered on 12/23/16 08:21; Start 12/22/16 at 09:00; Stop 01/21/17 at 08:59 Home Med (Med Rec Complete!) ASDIRECTED XX ; Start 12/21/16 at 20:00; Stop at 20:01; Status DC Hydroxyzine HCl (Atarax) 50 mg BIDP PRN PO ANXIETY Last administered on 20:15; Start 12/22/16 at 05:15; Stop 01/21/17 at 05:14 Lorazepam (Ativan) 2 mg ASDIRECTED PRN PO SEE PROTOCOL Last administered on 03:15; Start 12/22/16 at 20:00; Stop 12/29/16 at 19:59 Magnesium Hydroxide (Milk Of Magnesia) 30 ml DAILYPRN PRN PO CONSTIPATION; Start 12/22/16 at 05:15; Stop 01/21/17 at 05:14 Multivitamins (Theragram-M) 1 tab DAILY PO Last administered on 12/23/16 08:21 ; Start 12/22/16 at 09:00; Stop 01/21/17 at 08:59 Nicotine (Nicorette) 2 mg Q4HP PRN PO NICOTINE WITHDRAWAL; Start 12/24/16 at 08 :30; Stop 01/23/17 at 08:29 Olanzapine (ZyPREXA) 2.5 mg Q6HP PRN PO AGITATION Last administered on 00:49; Start 12/23/16 at 18:15; Stop 01/22/17 at 18:14 Omeprazole (PriLOSEC) 20 mg DAILY PO Last administered on 12/23/16 08:21; Start 12/22/16 at 09:00; Stop 01/21/17 at 08:59 Propranolol HCl (Inderal La) 80 mg DAILY PO Last administered on 12/23/16 08: 22; Start 12/22/16 at 09:00; Stop 01/21/17 at 08:59 Thiamine HCl (Thiamine HCl) 100 mg DAILY PO Last administered on 12/23/16 08: 21; Start 12/22/16 at 09:00; Stop 01/21/17 at 08:59 Tolterodine Tartrate (Detrol La) 4 mg BID PO Last administered on 12/23/16 20: 15; Start 12/22/16 at 09:00; Stop 01/21/17 at 08:59 Trazodone HCl (Desyrel) 50 mg QHSP PRN PO INSOMNIA Last administered on 20:15; Start 12/22/16 at 05:15; Stop 01/21/17 at 05:14 Allergies Coded Allergies: Penicillins (Verified Allergy, Intermediate, RASH, 08/30/16) Penicillins Cross Reactors (Verified Allergy, Intermediate, RASH, 08/30/16) Codeine (Unverified Allergy, Mild, rash, 08/30/16) Anitha Bennett Dec 24, 2016 08:50
[2016-12-24] MEDS: TOLTERODINE TARTRATE 2 MG LA CAP (DETROL LA) PO SCH ×2 (08:58→21:04)
[2016-12-24] MEDS: busPIRone 5 MG TAB PO SCH ×2 (08:58→21:04)
[2016-12-24] MEDS: THIAMINE 100 MG TAB PO SCH (08:59)
[2016-12-24] MEDS: CitaloPRAM (CeleXA) 10 MG TABLET PO SCH (08:59)
[2016-12-24] MEDS: hydrOXYzine 50 MG TAB PO PRN ×2 (08:59→21:04)
[2016-12-24] MEDS: OMEPRAZOLE 20 MG CAP PO SCH (08:59)
[2016-12-24] MEDS: buPROPion **XL** TABLET 150MG (WELLBUTRIN XL) PO SCH (08:59)
[2016-12-24] MEDS: MULTIVITAMINS/MINERALS THERAP 1 TAB PO SCH (08:59)
[2016-12-24] MEDS: PROPRANOLOL 80 MG LA CAP PO SCH (08:59)
[2016-12-24] MEDS: FOLIC ACID 1 MG TAB PO SCH (08:59)
[2016-12-24] MEDS: NICOTINE POLACRILEX 2 MG GUM PO PRN (13:33)
[2016-12-24] MEDS: ACETAMINOPHEN TAB 650MG DOSE (2X325MG) PO PRN (15:23)
--- NOTE | 2016-12-24 16:48 | REP ---
PELVIC ULTRASOUND: Real-time sonographic evaluation of the pelvis performed utilizing transabdominal and endovaginal technique. The bladder measures 9.6 x 4.6 x 6.8 cm. The uterus measures 9.5 x 4.4 x 5.0 cm. Endometrial thickness is 6 mm. Focal hyperechoic area in the endometrial cavity measures 8 x 5 x 9 mm suspicious for an endometrial polyp. There is no endometrial fluid. The right ovary measures 2.4 x 1.8 x 2.9 cm and contains an 8 mm calcification. Left ovary measures 2.3 x 2.7 x 2.6 cm. There is no other evidence of adnexal mass. There is no free fluid. There is no evidence of ovarian torsion with both lobes seen in each ovary with duplex Doppler evaluation, RI right ovary 0.50 and left ovary 0.59. IMPRESSION: Suspect 9 mm endometrial polyp. 8 mm calcification within the right ovary without associated mass. This is benign. Signed by Jw Hess MD 12/24/2016 04:52 P
[2016-12-24] MEDS ORDERED: HALOPERIDOL 2 MG TAB PO PRN (19:30)
[2016-12-24] MEDS ORDERED: LORazepam 1 MG TAB PO PRN (19:30)
[2016-12-24] MEDS: traZODone 50 MG TAB PO PRN (21:04)
[2016-12-24] MEDS ORDERED: HALOPERIDOL 2 MG TAB PO STA (22:27)
[2016-12-24] MEDS: OXAZEPAM 15 MG CAP PO SCH (23:20)
[2016-12-25] VITALS (8 sets, daily range): BP systolic 105–133; BP diastolic 69–88
[2016-12-25] MEDS ORDERED: HALOPERIDOL 2 MG TAB PO PRN
[2016-12-25] MEDS: OXAZEPAM 15 MG CAP PO SCH ×4 (06:21→23:09)
[2016-12-25] MEDS: MULTIVITAMINS/MINERALS THERAP 1 TAB PO SCH (09:39)
[2016-12-25] MEDS: busPIRone 5 MG TAB PO SCH ×2 (09:39→20:38)
[2016-12-25] MEDS: CitaloPRAM (CeleXA) 10 MG TABLET PO SCH (09:40)
[2016-12-25] MEDS: FOLIC ACID 1 MG TAB PO SCH (09:40)
[2016-12-25] MEDS: buPROPion **XL** TABLET 150MG (WELLBUTRIN XL) PO SCH (09:40)
[2016-12-25] MEDS: OMEPRAZOLE 20 MG CAP PO SCH (09:40)
[2016-12-25] MEDS: TOLTERODINE TARTRATE 2 MG LA CAP (DETROL LA) PO SCH ×2 (09:40→20:37)
[2016-12-25] MEDS: PROPRANOLOL 80 MG LA CAP PO SCH (09:40)
[2016-12-25] MEDS: THIAMINE 100 MG TAB PO SCH (09:40)
[2016-12-25] MEDS: hydrOXYzine 50 MG TAB PO PRN ×2 (09:42→23:10)
[2016-12-25] MEDS: traZODone 50 MG TAB PO PRN (23:10)
[2016-12-26 06:10] VITALS: BP 123/80
[2016-12-26] MEDS: OXAZEPAM 15 MG CAP PO SCH ×4 (06:14→23:51)
[2016-12-26] MEDS: FOLIC ACID 1 MG TAB PO SCH (08:14)
[2016-12-26] MEDS: busPIRone 5 MG TAB PO SCH ×2 (08:14→20:55)
[2016-12-26] MEDS: THIAMINE 100 MG TAB PO SCH (08:14)
[2016-12-26] MEDS: CitaloPRAM (CeleXA) 10 MG TABLET PO SCH (08:14)
[2016-12-26] MEDS: MULTIVITAMINS/MINERALS THERAP 1 TAB PO SCH (08:14)
[2016-12-26] MEDS: OMEPRAZOLE 20 MG CAP PO SCH (08:14)
[2016-12-26] MEDS: buPROPion **XL** TABLET 150MG (WELLBUTRIN XL) PO SCH (08:15)
[2016-12-26] MEDS: PROPRANOLOL 80 MG LA CAP PO SCH (08:15)
[2016-12-26] MEDS: TOLTERODINE TARTRATE 2 MG LA CAP (DETROL LA) PO SCH ×2 (08:15→20:54)
[2016-12-26] MEDS: ACETAMINOPHEN TAB 650MG DOSE (2X325MG) PO PRN (08:16)
[2016-12-26 10:39] VITALS: BP 123/80
[2016-12-26] MEDS: NICOTINE POLACRILEX 2 MG GUM PO PRN (11:35)
[2016-12-26 12:00] VITALS: BP 128/86
[2016-12-26 18:25] VITALS: BP 126/82
[2016-12-26] MEDS: traZODone 50 MG TAB PO PRN (22:55)
[2016-12-27] MEDS: OXAZEPAM 15 MG CAP PO SCH ×4 (06:24→23:00)
[2016-12-27 06:45] VITALS: BP 133/78
[2016-12-27 08:15] VITALS: BP 133/78
[2016-12-27] MEDS: TOLTERODINE TARTRATE 2 MG LA CAP (DETROL LA) PO SCH ×2 (08:47→21:00)
[2016-12-27] MEDS: PROPRANOLOL 80 MG LA CAP PO SCH (08:48)
[2016-12-27] MEDS: OMEPRAZOLE 20 MG CAP PO SCH (08:48)
[2016-12-27] MEDS: MULTIVITAMINS/MINERALS THERAP 1 TAB PO SCH (08:48)
[2016-12-27] MEDS: busPIRone 5 MG TAB PO SCH ×2 (08:48→21:00)
[2016-12-27] MEDS: FOLIC ACID 1 MG TAB PO SCH (08:48)
[2016-12-27] MEDS: THIAMINE 100 MG TAB PO SCH (08:48)
[2016-12-27] MEDS: buPROPion **XL** TABLET 150MG (WELLBUTRIN XL) PO SCH (08:48)
[2016-12-27] MEDS: CitaloPRAM (CeleXA) 10 MG TABLET PO SCH (08:48)
[2016-12-27] MEDS: NICOTINE POLACRILEX 2 MG GUM PO PRN (13:10)
[2016-12-27] MEDS: ACETAMINOPHEN TAB 650MG DOSE (2X325MG) PO PRN (15:57)
[2016-12-27 18:00] VITALS: BP 119/63
--- NOTE | 2016-12-27 18:22 | MHIPNPDOC ---
[facility] Progress Note Progress Note DATE OF SERVICE: 12/27/16 HISTORY: Patient is 41-year-old female voluntary admission who presented to the emergency room after her outpatient provider instructed her to pursue voluntary inpatient treatment for detox and symptoms of anxiety. Patient reports a long standing struggle with alcohol, indicates she consumed approximately 1 liter of "gin and juice" two days prior to admission and consumed one 12 ounce glass of mouthwash day prior to admission. Patient states she was last hospitalized at [facility] in 2010 for alcohol abuse and overdose, notes she has had multiple inpatient/rehabilitation admissions, reports history of suicide attempts beginning age 8 with last attempt being 7 years ago, estimates she has made approximately 10 total suicide attempts, indicates "I usually overdose, when I was 8 I tried to strangle myself, and one time I tried by hanging." Patient reports history of auditory hallucinations involving hearing music, notes last occurred one week ago, and history of visual hallucinations involving seeing spiders and other animals "but only when I'm in withdrawal," notes last experienced symptoms "a couple months ago. Marketing Assistant Manager met with patient this morning to assess treatment progress on inpatient unit. Patient reports current anxiety level 12/06, depression 01/06, denies suicidal and homicidal ideation, denies auditory and visual hallucinations, and denies urge to engage in self-injurious behavior. Patient states to parts data writer, "I feel fine physically, I'm just depressed and anxious because now I been locked out of my room and I'm being treated poorly when there is no reason for it." Patient expresses desire to be discharged, is reminded that she is voluntary but strongly encouraged to stay to continue process of withdrawal. Patient was reminded that outpatient provider has indicated that if she does not participate in substance abuse treatment he feels he is not sure he can safely provide outpatient medication management. Patient is again strongly encouraged to participate in at least outpatient substance abuse treatment, if not inpatient substance abuse treatment. She continues to minimize need, initially denies and then agrees to participate in outpatient substance abuse treatment. Patient reiterates concerns about having "one more appointments" she has to go to, indicates this increases her anxiety level. Patient informs parts data writer she does not feel she is withdrawing any longer, however, continues to utilize Serax to address symptoms of "anxiety." Marketing Assistant Manager asked patient about changes to medications over weekend and report that she had been crawling on bedroom floor , patient provides no explanation. Patient remains on CIWA protocol. Patient indicates current medication regimen is effective and denies need for dosing adjustment, denies medication side effects. Patient reported some improvement in energy level, indicated appetite is stable, denied challenges with concentration and focus and sleep. Patient denied symptoms of physical pain and presented with no signs of acute distress at time of interaction. Addendum: 12/23/16 Telephone consult completed with Dr. Mosley indicated patient is relatively new to him and he has concerns about the safety and effectiveness of treating patient in the outpatient environment when she is engaging in routine and excessive abuse of alcohol. Dr. Mosley is requesting to be contacted prior to patient's discharge and has indicated that he may be called by regular or weekend providers for treatment recommendations/guidance if needed. VITALS: See below NEW TEST RESULTS: No new results PAST MEDICAL/SURGICAL HISTORY: GERD, OAB, hypertension, osteoarthritis, cholecystectomy, cystoscopy, ankle arthroscopy, bunionectomy. Patient denies history of seizure and head injury. Labs on admission indicate low RBC, Hgb, HCT, anion gap, albumin, AGR, and elevated mono %, and glucose UDS negative, EtOH 0.317 EKG sinus rhythm moderate T-wave abnormality, new from tracing done 11/29/14. She is asymptomatic, clinical consultation completed with recommendation made for outpatient follow-up. 12/22/16 CT scan abdomen and pelvis - refer to EMR for results 12/24/16 pelvic ultrasound - Suspect 9 mm endometrial polyp. 8 mm calcification within the right ovary without associated mass. This is benign. CURRENT MEDICATIONS: See below MENTAL STATUS EXAMINATION: General appearance: Patient is a 41-year old female who is irritable but cooperative, engageable, makes fair eye contact, exhibits adequate personal hygiene, is dressed in hospital clothing, ambulates with steady gait, appears stated age Speech: Of normal rate, rhythm, low volume, spontaneous, coherent. Thought processes: Linear, logical, goal-directed Thought content: Logical, rational, no tangentiality or paranoia noted, perseverative to being too anxious to leave the house/drive. Abstract reasoning and computation: Appear intact. Description of associations: Intact. Description of abnormal or psychotic thoughts: Denies suicidal or homicidal ideation, denies auditory or visual hallucinations, does not appear to be responding to internal stimuli, does not endorse bizarre or paranoid ideation, denies preoccupation with violence or obsessions. Judgment: Poor Insight: Poor Orientation: A and O 3 Recent and remote memory: Appear intact Attention span and concentration: Appear adequate Fund of knowledge: Appear Within normal limits Mood: "Okay but anxious because I feel like people are forcing me to do things and now I'm locked out of my room." Patient appears somewhat less depressed and anxious, no mood lability noted. Affect: Blunted, brightens X one, congruent with mood DIAGNOSES: Major depressive disorder, generalized anxiety disorder, alcohol use disorder, rule out substance-induced mood disorder, rule out personality disorder ASSESSMENT: Patient appears to be slowly adjusting to unit, has been visible at times, has not been participating in unit programming but has been cooperative with staff, engageable, and has presented with no behavior management challenges. Patient reiterates today that she is not interested in participating in inpatient, outpatient treatment or in AA upon discharge, is aware that outpatient provider is concerned about her ability to continue to provide psychiatric medication management if she does not seek treatment for her substance abuse problem. Patient indicates current medication regimen is generally effective, denies medication side effects, and is medication compliant. Patient is now being prescribed Serax to address symptoms of withdrawal per [facility] protocol, indicates she no longer needs Serax and states she plans to refuse, was advised of potential adverse effects of abrupt discontinuation during alcohol withdrawal. Patient denies symptoms of craving or withdrawal this morning, denies current suicidal and homicidal ideation and verbalizes awareness of how to access supportive services on the unit if needed. Will continue to monitor patient's response to medications and for medication side effects, will also continue to evaluate patient safety and discharge readiness. Patient indicates when prepared for discharge she would like to return home with and resume outpatient psychotherapy and medication management through [facility]. Patient verbalizes awareness that strong recommendation is being made for her to participate in inpatient/ outpatient substance abuse treatment, is today agreeing to attend outpatient substance abuse treatment. Patient is voluntary admission and when she elects to discharge, and is stable enough for discharge, outpatient provider, Dr. Mosley , is requesting notification prior to patient's discharge. MANAGEMENT PLAN: Continue Celexa 40 mg po q am, Wellbutrin XL 150 mg po q am, BuSpar 15 mg po BID, hydroxyzine 50 mg po BJD PRN anxiety, trazodone 50 mg po hs PRN insomnia. Patient is also taking propranolol 80 mg po q am which appears to be prescribed primarily for blood pressure. Continue Serax 30 mg po q 6 hours with plan to taper and discontinue as tolerated by patient. Continue CIWA protocol Vitals QID Maintain safety precautions Patient to attend groups and participate in unit programming to develop coping strategies Engage patient in discharge planning process and arrange meeting with support system to ensure safe discharge planning when appropriate Patient to follow up with PCM regarding recent EKG results and any other health concerns upon discharge TIME SPENT COORDINATING CARE: 35 minutes Vital Signs Vital Signs Date Time Temp Pulse Resp B/P (MAP) Pulse Ox O2 Delivery O2 Flow Rate FiO2 12/27/16 08:48 84 125/76 12/27/16 06:45 99.0 18 12/22/16 01:59 93 Room Air Current Medications Current Medications Acetaminophen (Tylenol Tab) 650 mg Q6HP PRN PO HEADACHE or DISCOMFORT Last administered on 12/27/16 15:57; Start 12/22/16 at 05:15; Stop 01/21/17 at 05:14 Al Hydrox/Mg Hydrox/Simethicone (Mylanta) 30 ml Q4HP PRN PO HEARTBURN/ INDIGESTION; Start 12/22/16 at 05:15; Stop 01/21/17 at 05:14 Bupropion HCl (Wellbutrin Xl) 150 mg DAILY PO Last administered on 12/27/16 08 :48; Start 12/22/16 at 09:00; Stop 01/21/17 at 08:59 Buspirone HCl (Buspar) 15 mg BID PO Last administered on 12/27/16 08:48; Start 12/22/16 at 09:00; Stop 01/21/17 at 08:59 Citalopram Hydrobromide (CeleXA) 30 mg DAILY PO Last administered on 12/23/16 08:22; Start 12/22/16 at 09:00; Stop 12/23/16 at 18:20; Status DC Citalopram Hydrobromide (CeleXA) 40 mg DAILY PO Last administered on 12/27/16 08:48; Start 12/24/16 at 09:00; Stop 01/23/17 at 08:59 Folic Acid (Folic Acid) 1 mg DAILY PO Last administered on 12/27/16 08:48; Start 12/22/16 at 09:00; Stop 01/21/17 at 08:59 Haloperidol (Haldol) 2 mg Q4HP PRN PO HALLUCINATIONS/AGITATION; Start 12/25/16 at 00:00; Stop 01/23/17 at 19:29 Haloperidol (Haldol) 2 mg Q6HP PRN PO HALLUCINATIONS/AGITATION Last administered on 12/24/16 19:40; Start 12/24/16 at 19:30; Stop 12/24/16 at 21:58 ; Status DC Haloperidol (Haldol) 2 mg STAT STAT PO Last administered on 12/24/16 22:39; Start 12/24/16 at 22:27; Stop 12/24/16 at 22:29; Status DC Home Med (Med Rec Complete!) ASDIRECTED XX ; Start 12/21/16 at 20:00; Stop at 20:01; Status DC Hydroxyzine HCl (Atarax) 50 mg BIDP PRN PO ANXIETY Last administered on 23:10; Start 12/22/16 at 05:15; Stop 01/21/17 at 05:14 Lorazepam (Ativan) 1 mg Q6HP PRN PO ANXIETY; Start 12/24/16 at 19:30; Stop at 19:47; Status DC Lorazepam (Ativan) 2 mg ASDIRECTED PRN PO SEE PROTOCOL Last administered on 21:19; Start 12/22/16 at 20:00; Stop 12/29/16 at 19:59 Magnesium Hydroxide (Milk Of Magnesia) 30 ml DAILYPRN PRN PO CONSTIPATION; Start 12/22/16 at 05:15; Stop 01/21/17 at 05:14 Multivitamins (Theragram-M) 1 tab DAILY PO Last administered on 12/27/16 08:48 ; Start 12/22/16 at 09:00; Stop 01/21/17 at 08:59 Nicotine (Nicorette) 2 mg Q4HP PRN PO NICOTINE WITHDRAWAL Last administered on 12/27/16 13:10; Start 12/24/16 at 08:30; Stop 01/23/17 at 08:29 Olanzapine (ZyPREXA) 2.5 mg Q6HP PRN PO AGITATION Last administered on 15:21; Start 12/23/16 at 18:15; Stop 12/24/16 at 21:35; Status DC Omeprazole (PriLOSEC) 20 mg DAILY PO Last administered on 12/27/16 08:48; Start 12/22/16 at 09:00; Stop 01/21/17 at 08:59 Oxazepam (Serax) 30 mg Q6H PO Last administered on 12/27/16 06:24; Start 12/25 at 00:00; Stop 01/01/17 at 00:00 Propranolol HCl (Inderal La) 80 mg DAILY PO Last administered on 12/27/16 08: 48; Start 12/22/16 at 09:00; Stop 01/21/17 at 08:59 Thiamine HCl (Thiamine HCl) 100 mg DAILY PO Last administered on 12/27/16 08: 48; Start 12/22/16 at 09:00; Stop 01/21/17 at 08:59 Tolterodine Tartrate (Detrol La) 4 mg BID PO Last administered on 12/27/16 08: 47; Start 12/22/16 at 09:00; Stop 01/21/17 at 08:59 Trazodone HCl (Desyrel) 50 mg QHSP PRN PO INSOMNIA Last administered on 22:55; Start 12/22/16 at 05:15; Stop 01/21/17 at 05:14 Allergies Coded Allergies: Penicillins (Verified Allergy, Intermediate, RASH, 08/30/16) Penicillins Cross Reactors (Verified Allergy, Intermediate, RASH, 08/30/16) Codeine (Unverified Allergy, Mild, rash, 08/30/16) Cat Robin Dec 27, 2016 18:22
[2016-12-27 20:35] VITALS: BP 119/63
--- NOTE | 2016-12-27 21:55 | MHIPN ---
DATE: 12/25/2016 HISTORY: Day four of admission. The patient is a 41-year-old female voluntary admission, who presented to the emergency room after her outpatient provider instructed her to pursue voluntary inpatient treatment for detox and symptoms of anxiety. The patient reports a long-standing struggle with alcohol, indicates that she consumed approximately 1 liter of gin and juice two days prior to admission and consumed approximately six packs of beer, one six-pack daily. Every beer was 16 ounces and consumed one 12 ounce glass of mouthwash the day prior to admission. The patient stated that she was last hospitalized at [facility] in 2010 for alcohol abuse and overdose, she has had multiple inpatient and rehabilitation admissions, reports a history of suicide attempt beginning at age 8, with last attempt being 7 years ago. She has made approximately ten total suicide attempts, indicates that they are usually overdoses. "When I was 8 I tried to strangle myself and one time I tried by hanging." The patient reports history of auditory hallucinations involving hearing music, those last occurred one week ago, history of visual hallucinations involving seeing spiders and other animals "only when I am in withdrawal." Notes last experienced symptoms "a couple of months ago." VITAL SIGNS: See below. NEW TEST RESULTS: None available. CURRENT MEDICATIONS: See below. MENTAL STATUS EXAMINATION: The patient is a 41-year-old female, dressed in hospital clothes, who walks into the office with her eyes almost closed. Reports at that moment feeling "groggy, sleepy." The patient has soft spoken speech, not circumstantial and not tangential. Her thought process is intact. Her thought content is intact. She denies auditory and visual hallucinations. Denies suicidal ideation and denies homicidal ideation. The patient is not oriented to date and time, only to place and person. Her attention and concentration are poor. Her memory is limited. Her insight, judgment and impulse control are very poor. DIAGNOSES: 1. Major depressive disorder. 2. Alcohol use disorder. 3. Possibly borderline personality disorder. ASSESSMENT: The patient had a terrible night on 12/24/2016. This scientific technical writer was consulted many times throughout the night because of the patient's hallucinations and wandering through the inpatient mental health unit hallways. Reportedly at a certain point during the night, she was crawling in her bedroom, but this morning she could not recall any of that. She received three doses of Ativan 2 mg and one dose of Serax around midnight, plus two to three doses of Haldol 2 mg. This morning, the patient was not hallucinating and could not remember anything that happened last night, her judgment and insight into her situation are very poor. MANAGEMENT PLAN: She will continue CIWA protocol. She will continue on Haldol as needed, and she also has Serax 30 mg for anxiety. We will monitor closely and followup.
[2016-12-27] MEDS: traZODone 50 MG TAB PO PRN (23:00)
[2016-12-28] MEDS: OXAZEPAM 15 MG CAP PO SCH ×4 (05:49→23:42)
[2016-12-28 06:00] VITALS: BP 119/68
[2016-12-28] MEDS: buPROPion **XL** TABLET 150MG (WELLBUTRIN XL) PO SCH (08:40)
[2016-12-28] MEDS: CitaloPRAM (CeleXA) 10 MG TABLET PO SCH (08:41)
[2016-12-28] MEDS: MULTIVITAMINS/MINERALS THERAP 1 TAB PO SCH (08:42)
[2016-12-28] MEDS: TOLTERODINE TARTRATE 2 MG LA CAP (DETROL LA) PO SCH ×2 (08:42→21:04)
[2016-12-28] MEDS: PROPRANOLOL 80 MG LA CAP PO SCH (08:42)
[2016-12-28] MEDS: THIAMINE 100 MG TAB PO SCH (08:42)
[2016-12-28] MEDS: busPIRone 5 MG TAB PO SCH ×2 (08:42→21:04)
[2016-12-28] MEDS: FOLIC ACID 1 MG TAB PO SCH (08:42)
[2016-12-28] MEDS: OMEPRAZOLE 20 MG CAP PO SCH (08:42)
[2016-12-28] MEDS: NICOTINE POLACRILEX 2 MG GUM PO PRN (11:37)
[2016-12-28 18:00] VITALS: BP 119/78
--- NOTE | 2016-12-28 19:14 | MHIPNPDOC ---
[facility] Progress Note Progress Note DATE OF SERVICE: 12/28/16 HISTORY: Patient is 41-year-old female voluntary admission who presented to the emergency room after her outpatient provider instructed her to pursue voluntary inpatient treatment for detox and symptoms of anxiety. Patient reports a long standing struggle with alcohol, indicates she consumed approximately 1 liter of "gin and juice" two days prior to admission and consumed one 12 ounce glass of mouthwash day prior to admission. Patient states she was last hospitalized at [facility] in 2010 for alcohol abuse and overdose, notes she has had multiple inpatient/rehabilitation admissions, reports history of suicide attempts beginning age 8 with last attempt being 7 years ago, estimates she has made approximately 10 total suicide attempts, indicates "I usually overdose, when I was 8 I tried to strangle myself, and one time I tried by hanging." Patient reports history of auditory hallucinations involving hearing music, notes last occurred one week ago, and history of visual hallucinations involving seeing spiders and other animals "but only when I'm in withdrawal," notes last experienced symptoms "a couple months ago. [employer] met with patient today to assess treatment progress on inpatient unit. Patient states she is feeling "better than yesterday," reports current anxiety level 2/10, depression 2/10, denies suicidal and homicidal ideation, denies auditory and visual hallucinations, and denies urge to engage in self-injurious behavior. Patient indicates she is feeling better today, has been more compliant with being locked out of her room, has remained visible and is participating in unit activities. Patient states she feels current medication regimen is effective, states recent dose increase to antidepressant is helpful in controlling symptoms of anxiety and depression. Patient initially denies symptoms of craving or withdrawal, then indicates she has been experiencing intermittent low-grade headache pain, states she has been addressing with nursing. Patient denies craving symptoms. Patient was advised not to refuse Serax, is agreeable to beginning Serax taper in preparation for discharge. Patient remains aware that outpatient prescriber is requiring that she participate in substance abuse treatment, patient indicates today that she is willing to go to outpatient treatment through [facility] addictions. Patient was again encouraged to consider participating in inpatient treatment, patient declines. Patient remains on CIWA protocol. Patient reports some improvement to energy level, indicates appetite remains stable, denies challenges with concentration and focus, and indicates she is sleeping well. Patient denied symptoms of physical pain and presented with no signs of acute distress at time of interaction. Addendum: 12/23/16 Telephone consult completed with Dr. Mosley indicated patient is relatively new to him and he has concerns about the safety and effectiveness of treating patient in the outpatient environment when she is engaging in routine and excessive abuse of alcohol. Dr. Mosley is requesting to be contacted prior to patient's discharge and has indicated that he may be called by regular or weekend providers for treatment recommendations/guidance if needed. VITALS: See below NEW TEST RESULTS: No new results PAST MEDICAL/SURGICAL HISTORY: GERD, OAB, hypertension, osteoarthritis, cholecystectomy, cystoscopy, ankle arthroscopy, bunionectomy. Patient denies history of seizure and head injury. Labs on admission indicate low RBC, Hgb, HCT, anion gap, albumin, AGR, and elevated mono %, and glucose UDS negative, EtOH 0.317 HCG negative EKG sinus rhythm moderate T-wave abnormality, new from tracing done 11/29/14. She is asymptomatic, clinical consultation completed with recommendation made for outpatient follow-up. 12/22/16 CT scan abdomen and pelvis - refer to EMR for results 12/24/16 pelvic ultrasound - Suspect 9 mm endometrial polyp. 8 mm calcification within the right ovary without associated mass. This is benign. CURRENT MEDICATIONS: See below MENTAL STATUS EXAMINATION: General appearance: Patient is a 41-year old female who is noticeably less irritable today, is cooperative and engageable, makes improved eye contact, exhibits adequate personal hygiene, is dressed in hospital clothing, ambulates with steady gait, appears stated age Speech: Of normal rate, rhythm, low volume, spontaneous, coherent. Thought processes: Linear, logical, goal-directed Thought content: Logical, rational, no tangentiality or paranoia noted, perseverative to being too anxious to leave the house/drive. Abstract reasoning and computation: Appear intact. Description of associations: Intact. Description of abnormal or psychotic thoughts: Denies suicidal or homicidal ideation, denies auditory or visual hallucinations, does not appear to be responding to internal stimuli, does not endorse bizarre or paranoid ideation, denies preoccupation with violence or obsessions. Judgment: Poor, some improvement noted Insight: Poor Orientation: A and O 3 Recent and remote memory: Appear intact Attention span and concentration: Appear adequate Fund of knowledge: Appear Within normal limits Mood: "Okay, a little better today." Patient appears less depressed and anxious , no mood lability noted. Affect: Blunted, brightens at times, congruent with mood DIAGNOSES: Major depressive disorder, generalized anxiety disorder, alcohol use disorder, rule out substance-induced mood disorder, rule out personality disorder ASSESSMENT: Patient continues to adjust to unit, continues to verbalize dislike for room lockout, but appears to be adjusting, remains more visible, more engageable and has been participating in unit programming. Patient remains cooperative with staff Martina presented with no overt behavior management challenges. Patient reiterates today that she is not interested in participating in inpatient, outpatient treatment or in AA upon discharge, however, states she is aware that outpatient provider is requiring some type of substance abuse treatment, notes she wants to continue receiving treatment from outpatient provider, and states she is willing to attend outpatient treatment through [facility]. Patient indicates current medication regimen is effective, denies symptoms of irritability, agitation, impulsivity, and mood lability, denies medication side effects. She continues to take Serax to address symptoms of withdrawal per protocol, has been encouraged not to refuse medication, and states she feels prepared to initiate Serax taper and preparation for discharge. Patient denies current suicidal and homicidal ideation and verbalizes awareness of how to access supportive services on the unit if needed. Will begin to taper Serax and will continue to monitor patient' s response to medications and for medication side effects, will also continue to evaluate patient safety and discharge readiness. Patient reiterates today that when prepared for discharge she would like to return home with and resume outpatient psychotherapy and medication management through [facility]. Patient also states that she will participate in outpatient substance abuse treatment through [facility]. Patient is voluntary admission and when she elects to discharge, and is stable enough for discharge, outpatient provider , Dr. Mosley, is requesting notification prior to patient's discharge. MANAGEMENT PLAN: Continue Celexa 40 mg po q am, Wellbutrin XL 150 mg po q am, BuSpar 15 mg po BID, hydroxyzine 50 mg po BID PRN anxiety, trazodone 50 mg po hs PRN insomnia. Patient is also taking propranolol 80 mg po q am which appears to be prescribed primarily for blood pressure. Begin Serax taper, lower to 30 mg po q 8 hours starting tomorrow with plan to discontinue as tolerated by patient. Continue CIWA protocol Vitals QID Maintain safety precautions Discontinue room lockout Patient to attend groups and participate in unit programming to develop coping strategies Engage patient in discharge planning process and arrange meeting with support system to ensure safe discharge planning when appropriate Patient to follow up with PCM regarding recent EKG results and any other health concerns upon discharge TIME SPENT COORDINATING CARE: 35 minutes Vital Signs Vital Signs Date Time Temp Pulse Resp B/P (MAP) Pulse Ox O2 Delivery O2 Flow Rate FiO2 12/28/16 08:42 88 131/95 12/28/16 06:00 99.3 18 Room Air 12/22/16 01:59 93 Current Medications Current Medications Acetaminophen (Tylenol Tab) 650 mg Q6HP PRN PO HEADACHE or DISCOMFORT Last administered on 12/27/16 15:57; Start 12/22/16 at 05:15; Stop 01/21/17 at 05:14 Al Hydrox/Mg Hydrox/Simethicone (Mylanta) 30 ml Q4HP PRN PO HEARTBURN/ INDIGESTION; Start 12/22/16 at 05:15; Stop 01/21/17 at 05:14 Bupropion HCl (Wellbutrin Xl) 150 mg DAILY PO Last administered on 12/28/16 08: 40; Start 12/22/16 at 09:00; Stop 01/21/17 at 08:59 Buspirone HCl (Buspar) 15 mg BID PO Last administered on 12/28/16 08:42; Start 12/22/16 at 09:00; Stop 01/21/17 at 08:59 Citalopram Hydrobromide (CeleXA) 30 mg DAILY PO Last administered on 12/23/16 08:22; Start 12/22/16 at 09:00; Stop 12/23/16 at 18:20; Status DC Citalopram Hydrobromide (CeleXA) 40 mg DAILY PO Last administered on 12/28/16 08:41; Start 12/24/16 at 09:00; Stop 01/23/17 at 08:59 Folic Acid (Folic Acid) 1 mg DAILY PO Last administered on 12/28/16 08:42; Start 12/22/16 at 09:00; Stop 01/21/17 at 08:59 Haloperidol (Haldol) 2 mg Q4HP PRN PO HALLUCINATIONS/AGITATION; Start 12/25/16 at 00:00; Stop 01/23/17 at 19:29 Haloperidol (Haldol) 2 mg Q6HP PRN PO HALLUCINATIONS/AGITATION Last administered on 12/24/16 19:40; Start 12/24/16 at 19:30; Stop 12/24/16 at 21:58 ; Status DC Haloperidol (Haldol) 2 mg STAT STAT PO Last administered on 12/24/16 22:39; Start 12/24/16 at 22:27; Stop 12/24/16 at 22:29; Status DC Home Med (Med Rec Complete!) ASDIRECTED XX ; Start 12/21/16 at 20:00; Stop at 20:01; Status DC Hydroxyzine HCl (Atarax) 50 mg BIDP PRN PO ANXIETY Last administered on 23:10; Start 12/22/16 at 05:15; Stop 01/21/17 at 05:14 Lorazepam (Ativan) 1 mg Q6HP PRN PO ANXIETY; Start 12/24/16 at 19:30; Stop at 19:47; Status DC Lorazepam (Ativan) 2 mg ASDIRECTED PRN PO SEE PROTOCOL Last administered on 21:19; Start 12/22/16 at 20:00; Stop 01/04/17 at 19:59 Magnesium Hydroxide (Milk Of Magnesia) 30 ml DAILYPRN PRN PO CONSTIPATION; Start 12/22/16 at 05:15; Stop 01/21/17 at 05:14 Multivitamins (Theragram-M) 1 tab DAILY PO Last administered on 12/28/16 08:42 ; Start 12/22/16 at 09:00; Stop 01/21/17 at 08:59 Nicotine (Nicorette) 2 mg Q4HP PRN PO NICOTINE WITHDRAWAL Last administered on 12/28/16 11:37; Start 12/24/16 at 08:30; Stop 01/23/17 at 08:29 Olanzapine (ZyPREXA) 2.5 mg Q6HP PRN PO AGITATION Last administered on 15:21; Start 12/23/16 at 18:15; Stop 12/24/16 at 21:35; Status DC Omeprazole (PriLOSEC) 20 mg DAILY PO Last administered on 12/28/16 08:42; Start 12/22/16 at 09:00; Stop 01/21/17 at 08:59 Oxazepam (Serax) 30 mg Q6H PO Last administered on 12/28/16 05:49; Start at 00:00; Stop 12/29/16 at 02:00 Oxazepam (Serax) 30 mg Q8H PO ; Start 12/29/16 at 06:00; Stop 01/01/17 at 00:00 Propranolol HCl (Inderal La) 80 mg DAILY PO Last administered on 12/28/16 08:42 ; Start 12/22/16 at 09:00; Stop 01/21/17 at 08:59 Thiamine HCl (Thiamine HCl) 100 mg DAILY PO Last administered on 12/28/16 08:42 ; Start 12/22/16 at 09:00; Stop 01/21/17 at 08:59 Tolterodine Tartrate (Detrol La) 4 mg BID PO Last administered on 12/28/16 08: 42; Start 12/22/16 at 09:00; Stop 01/21/17 at 08:59 Trazodone HCl (Desyrel) 50 mg QHSP PRN PO INSOMNIA Last administered on 23:00; Start 12/22/16 at 05:15; Stop 01/21/17 at 05:14 Allergies Coded Allergies: Penicillins (Verified Allergy, Intermediate, RASH, 08/30/16) Penicillins Cross Reactors (Verified Allergy, Intermediate, RASH, 08/30/16) Codeine (Unverified Allergy, Mild, rash, 08/30/16) Cat Robin Dec 28, 2016 19:14
[2016-12-28 20:00] VITALS: BP 124/76
[2016-12-28] MEDS: traZODone 50 MG TAB PO PRN (23:04)
[2016-12-29] MEDS: OXAZEPAM 15 MG CAP PO SCH ×3 (06:18→21:30)
[2016-12-29 07:08] VITALS: BP 120/70
[2016-12-29] MEDS: PROPRANOLOL 80 MG LA CAP PO SCH (08:56)
[2016-12-29] MEDS: OMEPRAZOLE 20 MG CAP PO SCH (08:57)
[2016-12-29] MEDS: CitaloPRAM (CeleXA) 10 MG TABLET PO SCH (08:57)
[2016-12-29] MEDS: THIAMINE 100 MG TAB PO SCH (08:57)
[2016-12-29] MEDS: buPROPion **XL** TABLET 150MG (WELLBUTRIN XL) PO SCH (08:57)
[2016-12-29] MEDS: FOLIC ACID 1 MG TAB PO SCH (08:57)
[2016-12-29] MEDS: TOLTERODINE TARTRATE 2 MG LA CAP (DETROL LA) PO SCH ×2 (08:57→21:30)
[2016-12-29] MEDS: busPIRone 5 MG TAB PO SCH ×2 (08:57→21:31)
[2016-12-29] MEDS: MULTIVITAMINS/MINERALS THERAP 1 TAB PO SCH (08:57)
--- NOTE | 2016-12-29 09:12 | MHIPNPDOC ---
[facility] Progress Note Progress Note DATE OF SERVICE: 12/29/16 HISTORY: Patient is 41-year-old female voluntary admission who presented to the emergency room after her outpatient provider instructed her to pursue voluntary inpatient treatment for detox and symptoms of anxiety. Patient reports a long standing struggle with alcohol, indicates she consumed approximately 1 liter of "gin and juice" two days prior to admission and consumed one 12 ounce glass of mouthwash day prior to admission. Patient states she was last hospitalized at [facility] in 2010 for alcohol abuse and overdose, notes she has had multiple inpatient/rehabilitation admissions, reports history of suicide attempts beginning age 8 with last attempt being 7 years ago, estimates she has made approximately 10 total suicide attempts, indicates "I usually overdose, when I was 8 I tried to strangle myself, and one time I tried by hanging." Patient reports history of auditory hallucinations involving hearing music, notes last occurred one week ago, and history of visual hallucinations involving seeing spiders and other animals "but only when I'm in withdrawal," notes last experienced symptoms "a couple months ago. [facility]acker met with patient today to assess treatment progress on inpatient unit. Patient indicates she continues to feel "better," has remained visible even with discontinuation of room restriction, verbalizes some insight as to how spending time out of her room helps to reduce symptoms of anxiety and isolation. Patient rates current anxiety level as 1/10, depression 2/10 and attributes to "I miss my family," denies suicidal and homicidal ideation, denies auditory and visual hallucinations, denies urge to engage in self- injurious behavior. Patient denies symptoms of craving or withdrawal today. Patient states she feels current medication regimen remains effective, states dose increase to antidepressant is helpful in controlling symptoms of anxiety and depression. Patient remains in agreement was Serax taper, was again advised not to refuse Serax but to safely complete taper to ensure she does not experience withdrawal. Patient remains aware that outpatient prescriber is requiring that she participate in substance abuse treatment, reiterates today that she is will go to outpatient treatment through [facility] in addition to following up with [facility] outpatient for psychotherapy and medication management. Patient is aware primary recommendation is for inpatient substance abuse treatment, patient continues to decline. Patient remains on CIWA protocol. Patient reports some improvement to energy level, indicates appetite remains stable, denies challenges with concentration and focus, and indicates she is sleeping well. Patient denies symptoms of physical pain and presented with no signs of acute distress at time of interaction. Addendum: 12/29/16 telephone consult completed with Dr. Mosley who was informed of patient's patient's withdrawal symptoms over weekend, CPS report, Serax taper, willingness to participate in outpatient substance abuse treatment, and tentative discharge scheduled for Tuesday if patient is stable and continues to respond well to Serax taper. Dr. Mosley indicated patient may return to outpatient medication management and therapy as long as she is willing to follow through on addictions treatment. Dr. Mosley indicated the patient should have prior to discharge the following appointments scheduled: Outpatient psychotherapy, medication management, and [facility]. Dr. Mosley also gave approval for patient to have minor daughter visit on unit, however, specified that visitation must be supervised. Patient was informed that due to current unit acuity staff availability for supervision is limited at this time. Addendum: 12/23/[address] consult completed with Dr[address] Mosley indicated patient is relatively new to him and he has concerns about the safety and effectiveness of treating patient in the outpatient environment when she is engaging in routine and excessive abuse of alcohol. Dr. Mosley is requesting to be contacted prior to patient's discharge and has indicated that he may be called by regular or weekend providers for treatment recommendations/guidance if needed. VITALS: See below NEW TEST RESULTS: No new results PAST MEDICAL/SURGICAL HISTORY: GERD, OAB, hypertension, osteoarthritis, cholecystectomy, cystoscopy, ankle arthroscopy, bunionectomy. Patient denies history of seizure and head injury. Labs on admission indicate low RBC, Hgb, HCT, anion gap, albumin, AGR, and elevated mono %, and glucose UDS negative, EtOH 0.317 HCG negative EKG sinus rhythm moderate T-wave abnormality, new from tracing done 11/29/14. She is asymptomatic, clinical consultation completed with recommendation made for outpatient follow-up. 12/22/16 CT scan abdomen and pelvis - refer to EMR for results 12/24/16 pelvic ultrasound - Suspect 9 mm endometrial polyp. 8 mm calcification within the right ovary without associated mass. This is benign. CURRENT MEDICATIONS: See below MENTAL STATUS EXAMINATION: General appearance: Patient is a 41-year old female who is cooperative and pleasant today, engageable, makes good eye contact, exhibits adequate personal hygiene, is dressed in hospital clothing, ambulates with steady gait, appears stated age Speech: Of normal rate, rhythm, low volume, spontaneous, coherent. Thought processes: Linear, logical, goal-directed Thought content: Logical, rational, no tangentiality or paranoia noted, no perseveration today. Abstract reasoning and computation: Intact. Description of associations: Intact. Description of abnormal or psychotic thoughts: Denies suicidal or homicidal ideation, denies auditory or visual hallucinations, does not appear to be responding to internal stimuli, does not endorse bizarre or paranoid ideation, denies preoccupation with violence or obsessions. Judgment: Limited, some improvement noted Insight: Limited, some improvement noted Orientation: A and O 3 Recent and remote memory: Intact Attention span and concentration: Adequate Fund of knowledge: Appear Within normal limits Mood: "I actually feel pretty good today." Patient appears noticeably less depressed and anxious, no mood lability noted. Affect: Mild constriction, brightens frequently inappropriately, congruent with mood DIAGNOSES: Major depressive disorder, generalized anxiety disorder, alcohol use disorder, rule out substance-induced mood disorder, rule out personality disorder ASSESSMENT: Patient continues to adjust to unit, is calmer and more engageable today, remains more visible, has been participating in unit programming, and has been spending time in lounge with some engagement with others, even though she is now permitted to be in her room during the day. Patient remains cooperative with staff Martina presented with no overt behavior management challenges. Patient verbalizes some insight today, and is agreeable to participating in outpatient substance abuse treatment, continues to decline inpatient substance abuse treatment, and verbalizes awareness that outpatient medication management provider feels he cannot safely continue to provide treatment to her if she is not actively participating in substance abuse treatment. Patient indicates current medication regimen is effective, denies symptoms of irritability, agitation, impulsivity, and mood lability, denies medication side effects. Patient remains agreeable with continuation of Serax taper in preparation for discharge, denies symptoms of craving or withdrawal and was again encouraged to not refuse medications. Clinical consultation was sought pertaining to patient's recent EKG results and patient has been instructed to follow-up with outpatient provider post discharge. Patient has been educated on the risks to unborn child should she become while taking psychotropic medications and has been encouraged to utilize control while taking medications. Patient denies current suicidal and homicidal ideation and verbalizes awareness of how to access supportive services on the unit if needed. Will continue Serax taper and will continue to monitor patient' s response to medications and for medication side effects, will also continue to evaluate patient safety and discharge readiness. Patient reiterates today that when prepared for discharge she would like to return home with and resume outpatient psychotherapy and medication management through [facility]. Patient is aware that per Dr. Mosley, [facility] will also be scheduled for her for follow-up post discharge. Patient is voluntary admission and when she elects to discharge, and is stable enough for discharge, outpatient provider , Dr. Mosley, is requesting notification of patient's discharge. MANAGEMENT PLAN: Continue Celexa 40 mg po q am, Wellbutrin XL 150 mg po q am, BuSpar 15 mg po BID, hydroxyzine 50 mg po BID PRN anxiety, trazodone 50 mg po hs PRN insomnia. Patient is also taking propranolol 80 mg po q am which appears to be prescribed primarily for blood pressure. Continue Serax taper, lower to 30 mg po q 12 hours starting tomorrow with plan to discontinue as tolerated by patient. Continue CIWA protocol Vitals QID Maintain safety precautions Discontinue room lockout Patient to attend groups and participate in unit programming to develop coping strategies Engage patient in discharge planning process and arrange meeting with support system to ensure safe discharge planning when appropriate Patient to follow up with PCM regarding recent EKG results and any other health concerns upon discharge TIME SPENT COORDINATING CARE: 35 minutes Vital Signs Vital Signs Date Time Temp Pulse Resp B/P (MAP) Pulse Ox O2 Delivery O2 Flow Rate FiO2 12/29/16 08:56 76 120/70 12/29/16 07:08 98.6 20 Room Air Current Medications Current Medications Acetaminophen (Tylenol Tab) 650 mg Q6HP PRN PO HEADACHE or DISCOMFORT Last administered on 12/27/16 15:57; Start 12/22/16 at 05:15; Stop 01/21/17 at 05:14 Al Hydrox/Mg Hydrox/Simethicone (Mylanta) 30 ml Q4HP PRN PO HEARTBURN/ INDIGESTION; Start 12/22/16 at 05:15; Stop 01/21/17 at 05:14 Bupropion HCl (Wellbutrin Xl) 150 mg DAILY PO Last administered on 12/29/16 08: 57; Start 12/22/16 at 09:00; Stop 01/21/17 at 08:59 Buspirone HCl (Buspar) 15 mg BID PO Last administered on 12/29/16 08:57; Start 12/22/16 at 09:00; Stop 01/21/17 at 08:59 Citalopram Hydrobromide (CeleXA) 30 mg DAILY PO Last administered on 12/23/16 08:22; Start 12/22/16 at 09:00; Stop 12/23/16 at 18:20; Status DC Citalopram Hydrobromide (CeleXA) 40 mg DAILY PO Last administered on 12/29/16 08:57; Start 12/24/16 at 09:00; Stop 01/23/17 at 08:59 Folic Acid (Folic Acid) 1 mg DAILY PO Last administered on 12/29/16 08:57; Start 12/22/16 at 09:00; Stop 01/21/17 at 08:59 Haloperidol (Haldol) 2 mg Q4HP PRN PO HALLUCINATIONS/AGITATION; Start 12/25/16 at 00:00; Stop 01/23/17 at 19:29 Haloperidol (Haldol) 2 mg Q6HP PRN PO HALLUCINATIONS/AGITATION Last administered on 12/24/16 19:40; Start 12/24/16 at 19:30; Stop 12/24/16 at 21:58 ; Status DC Haloperidol (Haldol) 2 mg STAT STAT PO Last administered on 12/24/16 22:39; Start 12/24/16 at 22:27; Stop 12/24/16 at 22:29; Status DC Home Med (Med Rec Complete!) ASDIRECTED XX ; Start 12/21/16 at 20:00; Stop at 20:01; Status DC Hydroxyzine HCl (Atarax) 50 mg BIDP PRN PO ANXIETY Last administered on 23:10; Start 12/22/16 at 05:15; Stop 01/21/17 at 05:14 Lorazepam (Ativan) 1 mg Q6HP PRN PO ANXIETY; Start 12/24/16 at 19:30; Stop at 19:47; Status DC Lorazepam (Ativan) 2 mg ASDIRECTED PRN PO SEE PROTOCOL Last administered on 21:19; Start 12/22/16 at 20:00; Stop 01/04/17 at 19:59 Magnesium Hydroxide (Milk Of Magnesia) 30 ml DAILYPRN PRN PO CONSTIPATION; Start 12/22/16 at 05:15; Stop 01/21/17 at 05:14 Multivitamins (Theragram-M) 1 tab DAILY PO Last administered on 12/29/16 08:57 ; Start 12/22/16 at 09:00; Stop 01/21/17 at 08:59 Nicotine (Nicorette) 2 mg Q4HP PRN PO NICOTINE WITHDRAWAL Last administered on 12/28/16 11:37; Start 12/24/16 at 08:30; Stop 01/23/17 at 08:29 Olanzapine (ZyPREXA) 2.5 mg Q6HP PRN PO AGITATION Last administered on 15:21; Start 12/23/16 at 18:15; Stop 12/24/16 at 21:35; Status DC Omeprazole (PriLOSEC) 20 mg DAILY PO Last administered on 12/29/16 08:57; Start 12/22/16 at 09:00; Stop 01/21/17 at 08:59 Oxazepam (Serax) 30 mg Q6H PO Last administered on 12/28/16 23:42; Start at 00:00; Stop 12/29/16 at 01:00; Status DC Oxazepam (Serax) 30 mg Q8H PO Last administered on 12/29/16 06:18; Start at 06:00; Stop 01/01/17 at 00:00 Propranolol HCl (Inderal La) 80 mg DAILY PO Last administered on 12/29/16 08:56 ; Start 12/22/16 at 09:00; Stop 01/21/17 at 08:59 Thiamine HCl (Thiamine HCl) 100 mg DAILY PO Last administered on 12/29/16 08:57 ; Start 12/22/16 at 09:00; Stop 01/21/17 at 08:59 Tolterodine Tartrate (Detrol La) 4 mg BID PO Last administered on 12/29/16 08: 57; Start 12/22/16 at 09:00; Stop 01/21/17 at 08:59 Trazodone HCl (Desyrel) 50 mg QHSP PRN PO INSOMNIA Last administered on t 23:04; Start 12/22/16 at 05:15; Stop 01/21/17 at 05:14 Allergies Coded Allergies: Penicillins (Verified Allergy, Intermediate, RASH, 08/30/16) Penicillins Cross Reactors (Verified Allergy, Intermediate, RASH, 08/30/16) Codeine (Unverified Allergy, Mild, rash, 08/30/16) Cat Robin Dec 29, 2016 09:12
[2016-12-29] MEDS: NICOTINE POLACRILEX 2 MG GUM PO PRN (13:41)
[2016-12-29 18:00] VITALS: BP 115/79
[2016-12-29] MEDS: traZODone 50 MG TAB PO PRN (21:30)
[2016-12-30 06:28] VITALS: BP 132/84
[2016-12-30 07:40] VITALS: BP 132/84
[2016-12-30] MEDS: FOLIC ACID 1 MG TAB PO SCH (08:38)
[2016-12-30] MEDS: PROPRANOLOL 80 MG LA CAP PO SCH (08:38)
[2016-12-30] MEDS: THIAMINE 100 MG TAB PO SCH (08:38)
[2016-12-30] MEDS: MULTIVITAMINS/MINERALS THERAP 1 TAB PO SCH (08:38)
[2016-12-30] MEDS: TOLTERODINE TARTRATE 2 MG LA CAP (DETROL LA) PO SCH ×2 (08:38→21:03)
[2016-12-30] MEDS: OMEPRAZOLE 20 MG CAP PO SCH (08:38)
[2016-12-30] MEDS: busPIRone 5 MG TAB PO SCH ×2 (08:38→21:03)
[2016-12-30] MEDS: buPROPion **XL** TABLET 150MG (WELLBUTRIN XL) PO SCH (08:38)
[2016-12-30] MEDS: CitaloPRAM (CeleXA) 10 MG TABLET PO SCH (08:39)
[2016-12-30] MEDS: OXAZEPAM 15 MG CAP PO SCH ×2 (08:39→21:03)
--- NOTE | 2016-12-30 09:00 | MHIPNPDOC ---
[facility] Progress Note Progress Note DATE OF SERVICE: 12/30/16 HISTORY: Patient is 41-year-old female voluntary admission who presented to the emergency room after her outpatient provider instructed her to pursue voluntary inpatient treatment for detox and symptoms of anxiety. Patient reports a long standing struggle with alcohol, indicates she consumed approximately 1 liter of "gin and juice" two days prior to admission and consumed one 12 ounce glass of mouthwash day prior to admission. Patient states she was last hospitalized at [facility] in 2010 for alcohol abuse and overdose, notes she has had multiple inpatient/rehabilitation admissions, reports history of suicide attempts beginning age 8 with last attempt being 7 years ago, estimates she has made approximately 10 total suicide attempts, indicates "I usually overdose, when I was 8 I tried to strangle myself, and one time I tried by hanging." Patient reports history of auditory hallucinations involving hearing music, notes last occurred one week ago, and history of visual hallucinations involving seeing spiders and other animals "but only when I'm in withdrawal," notes last experienced symptoms "a couple months ago. Decontamination Worker met with patient this morning to assess treatment progress on inpatient unit. Patient denies symptoms of anxiety and depression, denies suicidal and homicidal ideation, denies auditory visual hallucinations, denies urge to engage in self-injurious behavior. Patient continues with Serax taper, denies experiencing symptoms of craving or withdrawal, indicates she wants to continue in preparation for discharge. Patient remains off from restriction and has remained visible. Patient today verbalizes increased insight as to importance of not withdrawing or being isolative, engaging with others, and participating in unit programming. Patient indicates current medication regimen remains effective but notes she continues to struggle with "my agoraphobia," declines dosing adjustment to BuSpar noting, "if I feel like it needs to be adjusted I' ll take it up with Dr. Mosley in outpatient." Patient is aware she has hydroxyzine available to her as needed to address intermittent symptoms of anxiety. Patient denies medication side effects. Patient made request for 17- year-old daughter to be allowed to visit on unit, was informed that due to CPS involvement visit would need to be supervised, patient declined visit noting, " I think that would be awkward having someone there supervising." Patient remains aware that outpatient prescriber is requiring that she participate in substance abuse treatment, reiterates today that she is will go to outpatient treatment through [facility] addiction in addition to following up with [facility] outpatient for psychotherapy and medication management. Patient is aware primary recommendation is for inpatient substance abuse treatment, patient continues to decline. Patient reports improvement to energy level, indicates appetite remains stable, denies challenges with concentration and focus, and describes sleep as "really good" with use of Trazodone. Patient denies symptoms of physical pain and presents with no signs of acute distress at time of interaction. Addendum: 12/30/16 publications writer spoke with patient's to provide treatment update , inform of possible discharge tomorrow after patient's response to Serax taper has been evaluated, and to inform that outpatient psychiatrist is requiring the patient participate in substance abuse treatment and that appointment has been scheduled with [facility]. Patient's verbalized understanding and agreement of treatment recommendation, indicated he feels patient is ready for discharge, and denied having concerns related to patient's discharge to home. Patient's also noted he will be off from work for the next 2.5 days and will be able to assist patient with transition to home environment. Attempt made to reach patient's ([phone]) to request treatment feedback and discuss discharge planning. Voicemail message left requesting return phone call. Addendum: 12/29/[address] Mosley who was informed of patient's patient's withdrawal symptoms over weekend, CPS report, Serax taper, willingness to participate in outpatient substance abuse treatment, and tentative discharge scheduled for Tuesday (at patient request) if patient is stable and continues to respond well to Serax taper. Dr. Mosley stated he is comfortable with patient being discharged with 2 day continuation of Serax 30 mg if patient is stable, willing to engage in treatment, and feeling prepared for discharge on Tuesday. Dr. Mosley indicated patient may return to outpatient medication management and therapy as long as she is willing to follow through on addictions treatment. Dr. Mosley indicated the patient should have prior to discharge the following appointments scheduled: Outpatient psychotherapy, medication management, and [facility]. Dr. Msoley also gave approval for patient to have minor daughter visit on unit, however, specified that visitation must be supervised. Patient was informed that due to current unit acuity staff availability for supervision is limited at this time. Addendum: 12/23/[address] Mosley indicated patient is relatively new to him and he has concerns about the safety and effectiveness of treating patient in the outpatient environment when she is engaging in routine and excessive abuse of alcohol. Dr. Mosley is requesting to be contacted prior to patient's discharge and has indicated that he may be called by regular or weekend providers for treatment recommendations/guidance if needed. VITALS: See below NEW TEST RESULTS: No new results MEDICAL/SURGICAL HISTORY: GERD, OAB, hypertension, osteoarthritis, cholecystectomy, cystoscopy, ankle arthroscopy, bunionectomy. Patient denies history of seizure and head injury. Labs on admission indicate low RBC, Hgb, HCT, anion gap, albumin, AGR, and elevated mono %, and glucose UDS negative, EtOH 0.317 HCG negative. Patient has been educated on risks of psychotropic medications to unborn child should she become while taking psychotropic medications. Patient states she is in monogamous relationship and has undergone vasectomy. EKG sinus rhythm moderate T-wave abnormality, new from tracing done 11/29/14. Patient is asymptomatic, clinical consultation completed with recommendation made for outpatient follow-up. 12/22/16 CT scan abdomen and pelvis - refer to EMR for results 12/24/16 pelvic ultrasound - Suspect 9 mm endometrial polyp. 8 mm calcification within the right ovary without associated mass. This is benign. CURRENT MEDICATIONS: See below MENTAL STATUS EXAMINATION: General appearance: Patient is a 41-year old female who is cooperative and pleasant today, engageable, makes good eye contact, exhibits adequate personal hygiene, is dressed in hospital clothing, ambulates with steady gait, appears stated age Speech: Of normal rate, rhythm, low volume, spontaneous, coherent. Thought processes: Linear, logical, goal-directed Thought content: Logical, rational, no tangentiality or paranoia noted, no perseveration. Abstract reasoning and computation: Intact. Description of associations: Intact. Description of abnormal or psychotic thoughts: Denies suicidal or homicidal ideation, denies auditory or visual hallucinations, does not appear to be responding to internal stimuli, does not endorse bizarre or paranoid ideation, denies preoccupation with violence or obsessions. Judgment: Fair, some improvement noted Insight: Fair, some improvement noted Orientation: A and O 3 Recent and remote memory: Intact Attention span and concentration: Adequate Fund of knowledge: Appear Within normal limits Mood: "I feel pretty perfect, I feel safe and not drink in a few like him ready to go home tomorrow." Patient denies symptoms of anxiety and depression, no mood lability noted. Affect: Mild constriction, brightens frequently and appropriately, congruent with mood DIAGNOSES: Major depressive disorder, generalized anxiety disorder, alcohol use disorder, rule out substance-induced mood disorder, rule out personality disorder ASSESSMENT: Patient is adjusting to unit, remains calm and visible, is easily engaged, has been participating in unit programming, and has been spending time in lounge with some engagement with others, even though she is now permitted to be in her room during the day. Patient remains cooperative with staff and has presented with no overt behavior management challenges. Patient continues to verbalize increasing insight, remains agreeable to participating in outpatient substance abuse treatment, continues to decline inpatient substance abuse treatment, and verbalizes awareness that outpatient medication management provider feels he cannot safely continue to provide treatment to her if she is not actively participating in substance abuse treatment. Patient indicates current medication regimen is effective, denies symptoms of irritability, agitation, impulsivity, and mood lability, denies medication side effects. Patient indicates any residual symptoms of "my agoraphobia" she will address with her outpatient provider if needed. Patient is agreeable to continuation of Serax taper in preparation for discharge, denies symptoms of craving or withdrawal. Clinical consultation has been sought pertaining to patient's recent EKG results and patient has been instructed to follow-up with outpatient provider post discharge. Patient has been educated on the risks to unborn child should she become while taking psychotropic medications and has been encouraged to utilize control while taking medications. Patient denies current suicidal and homicidal ideation and verbalizes awareness of how to access supportive services on the unit if needed. Will continue Serax taper and will continue to monitor patient's response to medications and for medication side effects, will also continue to evaluate patient safety and discharge readiness. Patient is requesting discharge tomorrow and reiterates that after discharge she would like to return home with and resume outpatient psychotherapy and medication management through [facility]. Patient is aware that per Dr. Mosley, [facility] addictions will also be scheduled for her for follow-up post discharge and patient is agreeing to follow through on treatment recommendations. Patient is voluntary admission and when she elects to discharge, and is stable enough for discharge, outpatient provider, Dr. Mosley , is requesting notification of patient's discharge. MANAGEMENT PLAN: Continue Celexa 40 mg po q am, Wellbutrin XL 150 mg po q am, BuSpar 15 mg po BID, hydroxyzine 50 mg po BID PRN anxiety, trazodone 50 mg po hs PRN insomnia. Patient is also taking propranolol 80 mg po q am which appears to be prescribed primarily for blood pressure. Continue Serax taper, lower to 30 mg po q am with plan to discontinue as tolerated by patient. Continue CIWA protocol Vitals QID Maintain safety precautions Discontinue room lockout Patient to attend groups and participate in unit programming to develop coping strategies Engage patient in discharge planning process and arrange meeting with support system to ensure safe discharge planning when appropriate Patient to follow up with PCM regarding recent EKG results and any other health concerns upon discharge TIME SPENT COORDINATING CARE: 35 minutes Vital Signs Vital Signs Date Time Temp Pulse Resp B/P (MAP) Pulse Ox O2 Delivery O2 Flow Rate FiO2 12/30/16 08:38 67 132/84 12/30/16 06:28 97.2 16 Room Air Current Medications Current Medications Acetaminophen (Tylenol Tab) 650 mg Q6HP PRN PO HEADACHE or DISCOMFORT Last administered on 12/27/16 15:57; Start 12/22/16 at 05:15; Stop 01/21/17 at 05:14 Al Hydrox/Mg Hydrox/Simethicone (Mylanta) 30 ml Q4HP PRN PO HEARTBURN/ INDIGESTION; Start 12/22/16 at 05:15; Stop 01/21/17 at 05:14 Bupropion HCl (Wellbutrin Xl) 150 mg DAILY PO Last administered on 12/30/16 08: 38; Start 12/22/16 at 09:00; Stop 01/21/17 at 08:59 Buspirone HCl (Buspar) 15 mg BID PO Last administered on 12/30/16 08:38; Start 12/22/16 at 09:00; Stop 01/21/17 at 08:59 Citalopram Hydrobromide (CeleXA) 30 mg DAILY PO Last administered on 12/23/16 08:22; Start 12/22/16 at 09:00; Stop 12/23/16 at 18:20; Status DC Citalopram Hydrobromide (CeleXA) 40 mg DAILY PO Last administered on 12/30/16 08:39; Start 12/24/16 at 09:00; Stop 01/23/17 at 08:59 Folic Acid (Folic Acid) 1 mg DAILY PO Last administered on 12/30/16 08:38; Start 12/22/16 at 09:00; Stop 01/21/17 at 08:59 Haloperidol (Haldol) 2 mg Q4HP PRN PO HALLUCINATIONS/AGITATION; Start 12/25/16 at 00:00; Stop 01/23/17 at 19:29 Haloperidol (Haldol) 2 mg Q6HP PRN PO HALLUCINATIONS/AGITATION Last administered on 12/24/16 19:40; Start 12/24/16 at 19:30; Stop 12/24/16 at 21:58 ; Status DC Haloperidol (Haldol) 2 mg STAT STAT PO Last administered on 12/24/16 22:39; Start 12/24/16 at 22:27; Stop 12/24/16 at 22:29; Status DC Home Med (Med Rec Complete!) ASDIRECTED XX ; Start 12/21/16 at 20:00; Stop at 20:01; Status DC Hydroxyzine HCl (Atarax) 50 mg BIDP PRN PO ANXIETY Last administered on 23:10; Start 12/22/16 at 05:15; Stop 01/21/17 at 05:14 Lorazepam (Ativan) 1 mg Q6HP PRN PO ANXIETY; Start 12/24/16 at 19:30; Stop at 19:47; Status DC Lorazepam (Ativan) 2 mg ASDIRECTED PRN PO SEE PROTOCOL Last administered on 21:19; Start 12/22/16 at 20:00; Stop 12/29/16 at 17:38; Status DC Magnesium Hydroxide (Milk Of Magnesia) 30 ml DAILYPRN PRN PO CONSTIPATION; Start 12/22/16 at 05:15; Stop 01/21/17 at 05:14 Multivitamins (Theragram-M) 1 tab DAILY PO Last administered on 12/30/16 08:38 ; Start 12/22/16 at 09:00; Stop 01/21/17 at 08:59 Nicotine (Nicorette) 2 mg Q4HP PRN PO NICOTINE WITHDRAWAL Last administered on 12/29/16 13:41; Start 12/24/16 at 08:30; Stop 01/23/17 at 08:29 Olanzapine (ZyPREXA) 2.5 mg Q6HP PRN PO AGITATION Last administered on 15:21; Start 12/23/16 at 18:15; Stop 12/24/16 at 21:35; Status DC Omeprazole (PriLOSEC) 20 mg DAILY PO Last administered on 12/30/16 08:38; Start 12/22/16 at 09:00; Stop 01/21/17 at 08:59 Oxazepam (Serax) 30 mg Q12H PO Last administered on 12/30/16 08:39; Start at 09:00; Stop 01/01/17 at 00:00 Oxazepam (Serax) 30 mg Q6H PO Last administered on 12/28/16 23:42; Start at 00:00; Stop 12/29/16 at 01:00; Status DC Oxazepam (Serax) 30 mg Q8H PO Last administered on 12/29/16 21:30; Start at 06:00; Stop 12/29/16 at 22:00; Status DC Propranolol HCl (Inderal La) 80 mg DAILY PO Last administered on 12/30/16 08:38 ; Start 12/22/16 at 09:00; Stop 01/21/17 at 08:59 Thiamine HCl (Thiamine HCl) 100 mg DAILY PO Last administered on 12/30/16 08:38 ; Start 12/22/16 at 09:00; Stop 01/21/17 at 08:59 Tolterodine Tartrate (Detrol La) 4 mg BID PO Last administered on 12/30/16 08: 38; Start 12/22/16 at 09:00; Stop 01/21/17 at 08:59 Trazodone HCl (Desyrel) 50 mg QHSP PRN PO INSOMNIA Last administered on 21:30; Start 12/22/16 at 05:15; Stop 01/21/17 at 05:14 Allergies Coded Allergies: Penicillins (Verified Allergy, Intermediate, RASH, 4/3/17) Penicillins Cross Reactors (Verified Allergy, Intermediate, RASH, 08/30/16) Codeine (Unverified Allergy, Mild, rash, 08/30/16) Cat Robin Dec 30, 2016 09:00
[2016-12-30] MEDS: NICOTINE POLACRILEX 2 MG GUM PO PRN (10:18)
[2016-12-30 12:00] VITALS: BP 130/80
[2016-12-30 18:00] VITALS: BP 130/84
[2016-12-30] MEDS: traZODone 50 MG TAB PO PRN (21:03)
[2016-12-31 06:38] VITALS: BP 104/63
[2016-12-31] MEDS: buPROPion **XL** TABLET 150MG (WELLBUTRIN XL) PO SCH (08:23)
[2016-12-31] MEDS: CitaloPRAM (CeleXA) 10 MG TABLET PO SCH (08:23)
[2016-12-31] MEDS: OMEPRAZOLE 20 MG CAP PO SCH (08:24)
[2016-12-31] MEDS: FOLIC ACID 1 MG TAB PO SCH (08:24)
[2016-12-31] MEDS: busPIRone 5 MG TAB PO SCH (08:24)
[2016-12-31] MEDS: OXAZEPAM 15 MG CAP PO SCH (08:24)
[2016-12-31] MEDS: MULTIVITAMINS/MINERALS THERAP 1 TAB PO SCH (08:24)
[2016-12-31] MEDS: TOLTERODINE TARTRATE 2 MG LA CAP (DETROL LA) PO SCH (08:25)
[2016-12-31] MEDS: THIAMINE 100 MG TAB PO SCH (08:25)
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
[2016-12-31 10:22] VITALS: BP 130/86
[2016-12-31] MEDS: PROPRANOLOL 80 MG LA CAP PO SCH (10:22)
[2016-12-31] MEDS: ACETAMINOPHEN TAB 650MG DOSE (2X325MG) PO PRN (10:23)
[2016-12-31] MEDS ORDERED: HYDRO50TAB PO (12:11)
[2016-12-31] MEDS ORDERED: CELE40TA PO (12:11)
[2016-12-31] MEDS ORDERED: TRAZO50TA PO (12:11)
[2016-12-31] MEDS ORDERED: BUPR150T3 PO (12:11)
[2016-12-31] MEDS ORDERED: BUSP15TA47 PO (12:11)
[2016-12-31] MEDS ORDERED: THIA100TA PO (13:04)
[2016-12-31] MEDS ORDERED: VITMTA PO (13:04)
[2016-12-31] MEDS ORDERED: FOLI1TAB4 PO (13:04)
[2016-12-31] MEDS ORDERED: NICO2GUM62 PO (13:04)
[2016-12-31] MEDS ORDERED: OXAZ30CA2 PO (14:07)
== END 2016-12-31 13:35 | disposition home or self-care (01) | DRG 754 ==
LOC: M ED 15:12 → M ED INP 12-22 03:13 → M PSY 12-22 03:55
PROVIDERS: ADMIT Psychiatry & Neurology Psychiatry; ATTEND Psychiatry & Neurology Psychiatry
DX: F32.9 Major depressive disorder, single episode, unspecified (principal); N32.81 Overactive bladder; I10 Essential (primary) hypertension; F41.1 Generalized anxiety disorder; F10.10 Alcohol abuse, uncomplicated; F60.9 Personality disorder, unspecified; F19.94 Other psychoactive substance use, unspecified with psychoactive substance-induced mood disorder; K21.9 Gastro-esophageal reflux disease without esophagitis; G47.00 Insomnia, unspecified; M19.90 Unspecified osteoarthritis, unspecified site; F17.200 Nicotine dependence, unspecified, uncomplicated; R10.9 Unspecified abdominal pain; Z88.0 Allergy status to penicillin; Z88.5 Allergy status to narcotic agent; Z79.899 Other long term (current) drug therapy

== ENCOUNTER → 2017-01-06 | Outpatient (CLI) | payer BC ==
[~2017-01-06] MED LIST changes: +BUPR150T3 PO; +CELE40TA PO; +FOLI1TAB4 PO; +HYDR50CA2 PO; +HYDRO50TAB PO; +NICO2GUM62 PO; +OXAZ30CA2 PO; +PROP80CA PO; +THIA100TA PO; +TRAZO50TA PO; +VITMTA PO
== END ==
LOC: M OUTALCOH 13:55
PROVIDERS: ATTEND Psychiatry & Neurology Psychiatry
DX: Z13.9 Encounter for screening, unspecified (principal); F10.20 Alcohol dependence, uncomplicated

== ENCOUNTER 2017-01-25 10:00 | Outpatient (RCR) | payer BC | END 2017-01-27 | LOC: M OUTALCOH 10:00 | PROVIDERS: ATTEND Psychiatry & Neurology Psychiatry | DX: F10.20 Alcohol dependence, uncomplicated (principal) ==

== ENCOUNTER → 2017-01-25 | Outpatient (REF) | payer BC | LOC: M SFHCWAGY 14:35 | PROVIDERS: ATTEND Nurse Practitioner Family | DX: Z12.4 Encounter for screening for malignant neoplasm of cervix (principal) ==

== ENCOUNTER → 2017-03-04 | Outpatient (REF) | payer BC ==
[2017-03-04 15:44] LABS: BASO # 0.1 10^3/uL (0.0-0.2); EOS # 0.1 10^3/uL (0.0-0.50); EOS % 2.7 % (0.0-3.0); LYMPH # 2.4 10^3/uL (1.5-4.5); LYMPH % 50.3 % (24.0-44.0); MEAN CORPUSCULAR HEMOGLOBIN 29.7 pg (27.0-33.0); MEAN CORPUSCULAR HGB CONC 33.2 g/dl (32.0-36.5); MEAN CORPUSCULAR VOLUME 89.7 fl (80.0-96.0); MONO # 0.4 10^3/uL (0.0-0.8); NEUTROPHILS # 1.8 10^3/uL (1.8-7.7); PLATELET COUNT, AUTOMATED 136 10^3/uL (150-450); RED CELL DISTRIBUTION WIDTH 13.2 % (11.5-14.5); WHITE BLOOD COUNT 4.8 10^3/uL (4.0-10.0)
[2017-03-04 15:55] LABS: ALBUMIN 3.5 GM/DL (3.2-5.2); ALBUMIN/GLOBULIN RATIO 0.85 (1.00-1.93); ALKALINE PHOSPHATASE 100 U/L (45-117); ALT/SGPT 42 U/L (12-78); ANION GAP 12 MEQ/L (8-16); AST/SGOT 61 U/L (15-37); BILIRUBIN,TOTAL 0.3 MG/DL (0.2-1.0); BLOOD UREA NITROGEN 11 MG/DL (7-18); CALCIUM LEVEL 8.5 MG/DL (8.5-10.1); CARBON DIOXIDE LEVEL 23 MEQ/L (21-32); CHLORIDE LEVEL 106 MEQ/L (98-107); CHOLESTEROL LEVEL 224 MG/DL (<200); FREE T4 0.86 NG/DL (0.76-1.46); GLOMERULAR FILTRATION RATE > 60.0 (>58); GLUCOSE, FASTING 76 MG/DL (70-105); POTASSIUM SERUM 4.1 MEQ/L (3.5-5.1); SODIUM LEVEL 141 MEQ/L (136-145); TOTAL PROTEIN 7.6 GM/DL (6.4-8.2); TRIGLYCERIDES LEVEL 163 MG/DL (<150)
[2017-03-04 16:26] LABS: VITAMIN B12 LEVEL 375 PG/ML (247-911)
== END ==
LOC: M SFHCSACK 09:43
PROVIDERS: ATTEND Physician Assistant
DX: F10.10 Alcohol abuse, uncomplicated (principal); F41.9 Anxiety disorder, unspecified; Z13.220 Encounter for screening for lipoid disorders; Z13.21 Encounter for screening for nutritional disorder

== ENCOUNTER → 2017-04-18 | Outpatient (CLI) | payer BC ==
--- NOTE | 2017-04-18 12:09 | REPMRS ---
Patient History The patient states she had a clinical breast exam in No known family history of cancer. Digital Woman Screen Mammo: April 18, 2017 - Exam #: [id number] Bilateral CC and MLO view(s) were taken. Technologist: Michela Marie, Technologist Prior study comparison: July 16, 2014, digital woman screen mammo performed at [facility]. FINDINGS: The breast tissue is heterogeneously dense. This may lower the sensitivity of mammography. There has been no change in the appearance of the mammogram from the prior studies. There is a moderate amount of residual fibroglandular tissue which is fairly symmetric. There is no interval development of dominant mass, areas of architectural distortion, or clustered microcalcification typical of malignancy. ASSESSMENT: BI-RADS/ACR category 1 mammogram. Negative. Recommendation Routine screening mammogram in 1 year (for women over age 40). This mammogram was interpreted with the aid of an FDA-approved computer-aided dectection system. Electronically Signed By: Jw Hess MD 04/18/17 [id number]
== END ==
LOC: M WHC 11:00
PROVIDERS: ATTEND Nurse Practitioner Family
DX: Z12.31 Encounter for screening mammogram for malignant neoplasm of breast (principal)

== ENCOUNTER 2017-05-25 12:23 | Emergency (ER) | payer BC ==
[2017-05-25] MEDS: KETOROLAC 60 MG/2 ML VIAL (J1885) IM (14:12)
== END 2017-05-25 14:55 | disposition home or self-care (01) ==
LOC: M ED 12:23
DX: S60.042A Contusion of left ring finger without damage to nail, initial encounter (principal); S60.052A Contusion of left little finger without damage to nail, initial encounter; W01.0XXA Fall on same level from slipping, tripping and stumbling without subsequent striking against object, initial encounter; Y92.018 Other place in single-family (private) house as the place of occurrence of the external cause; Y93.89 Activity, other specified; Y99.8 Other external cause status; I10 Essential (primary) hypertension; F33.9 Major depressive disorder, recurrent, unspecified; Z79.899 Other long term (current) drug therapy; Z88.0 Allergy status to penicillin; Z88.5 Allergy status to narcotic agent; F17.210 Nicotine dependence, cigarettes, uncomplicated
CPT/HCPCS: J1885

== ENCOUNTER 2017-06-08 16:32 | Inpatient (IN) | payer BC ==
[2017-06-08] MEDS ORDERED: amLODIPine 5 MG TAB PO (18:00)
[2017-06-08] MEDS ORDERED: LOSARTAN 50 MG TAB PO (18:00)
[2017-06-08] MEDS: NS 1,000 ML IV ×2 (18:15→21:28)
[2017-06-08 18:43] LABS: BASO % 0.7 % (0.0-1.0); EOS # 0.1 10^3/uL (0.0-0.50); HEMATOCRIT 34.1 % (36.0-47.0); IMMATURE GRANULOCYTE # 0.1 10^3/uL (0-0); IMMATURE GRANULOCYTE % 1.1 % (0-0); LYMPH # 1.4 10^3/uL (1.5-4.5); MEAN CORPUSCULAR HEMOGLOBIN 30.9 pg (27.0-33.0); MEAN CORPUSCULAR HGB CONC 32.3 g/dl (32.0-36.5); MEAN CORPUSCULAR VOLUME 95.8 fl (80.0-96.0); MONO # 0.8 10^3/uL (0.0-0.8); MONO % 14.1 % (0.0-5.0); NEUTROPHILS # 3.2 10^3/uL (1.8-7.7); NEUTROPHILS % 57.1 % (36.0-66.0); PLATELET COUNT, AUTOMATED 307 10^3/uL (150-450); RED BLOOD COUNT 3.56 10^6/uL (4.00-5.40); RED CELL DISTRIBUTION WIDTH 16.8 % (11.5-14.5); WHITE BLOOD COUNT 5.6 10^3/uL (4.0-10.0)
[2017-06-08 18:45] LABS: CONTROL LINE UCG INT CTR LINE PRESENT; URINE PREG TEST NEGATIVE (NEGATIVE)
[2017-06-08 18:51] LABS: KETONE, URINE AUTO RFX TRACE mg/dL (NEGATIVE); LEUKOCYTE ESTERASE UR AUTO RFX NEGATIVE (NEGATIVE); MUCUS, URINE RFX SMALL (NEGATIVE); NITRITE, URINE AUTO RFX NEGATIVE (NEGATIVE); RBC, URINE AUTO RFX 3 /HPF (0-3); SPECIFIC GRAVITY UR AUTO RFX 1.017 (1.002-1.035); SQUAM EPITHELIAL CELL UR AURFX 3 /HPF (0-6); WBC, URINE AUTO RFX 2 /HPF (0-3)
[2017-06-08 19:02] LABS: ALBUMIN 3.2 GM/DL (3.2-5.2); ALKALINE PHOSPHATASE 105 U/L (45-117); ALT/SGPT 103 U/L (12-78); ANION GAP 11 MEQ/L (8-16); AST/SGOT 153 U/L (7-37); BILIRUBIN,DIRECT 0.1 MG/DL (0.0-0.2); BILIRUBIN,TOTAL 0.3 MG/DL (0.2-1.0); BLOOD UREA NITROGEN 6 MG/DL (7-18); CALCIUM LEVEL 8.7 MG/DL (8.5-10.1); CARBON DIOXIDE LEVEL 25 MEQ/L (21-32); CHLORIDE LEVEL 102 MEQ/L (98-107); CK-MB VALUE MASS 2.1 NG/ML (0.0-3.6); CPK CREATINE PHOSPHOKINASE 228 U/L (26-192); CREATININE FOR GFR 0.82 MG/DL (0.55-1.02); GLOMERULAR FILTRATION RATE > 60.0 (>58); GLUCOSE, FASTING 99 MG/DL (70-105); MB/CK RELATIVE INDEX 0.92 (< OR =4); POTASSIUM SERUM 3.3 MEQ/L (3.5-5.1); SODIUM LEVEL 138 MEQ/L (136-145); TOTAL PROTEIN 7.2 GM/DL (6.4-8.2); TROPONIN I < 0.02 NG/ML (< 0.10)
[2017-06-08] MEDS: busPIRone 10 MG TAB PO (21:00)
[2017-06-08] MEDS: TOLTERODINE TARTRATE 2 MG LA CAP (DETROL LA) PO (21:00)
[2017-06-08 21:24] LABS: AMPHETAMINES LEVEL URINE NEGATIVE (NEGATIVE); BARBITURATES URINE NEGATIVE (NEGATIVE); BENZODIAZEPINES URINE NEGATIVE (NEGATIVE); CANNABINOIDS URINE NEGATIVE (NEGATIVE); COCAINE METABOLITE URINE NEGATIVE (NEGATIVE); METHADONE URINE NEGATIVE (NEGATIVE); OPIATES URINE NEGATIVE (NEGATIVE); PHENCYCLIDINE URINE NEGATIVE (NEGATIVE)
[2017-06-08] MEDS: POTASSIUM CHLORIDE 10 MEQ SR TABLET PO (21:27)
[2017-06-08 21:50] LABS: MAGNESIUM LEVEL 1.7 MG/DL (1.8-2.4)
[2017-06-09] MEDS ORDERED: ONDANSETRON 4MG/2ML VIAL (J2405) IV
[2017-06-09] MEDS: MIRTAZAPINE 15 MG TAB PO ×2 (01:55→21:17)
[2017-06-09] MEDS: SIMVASTATIN 10 MG TAB PO ×2 (01:56→21:17)
[2017-06-09] MEDS ORDERED: SLF 3 ML SYR IV (02:00)
[2017-06-09] MEDS: ACETAMINOPHEN TAB 650MG DOSE (2X325MG) PO ×3 (04:01→14:09)
[2017-06-09] MEDS: HEPARIN SOD (PORCINE) 5000 UNITS/ML VIAL SC (06:00)
[2017-06-09 06:19] LABS: HEMATOCRIT 29.7 % (36.0-47.0); HEMOGLOBIN 9.5 g/dl (12.0-16.0); MEAN CORPUSCULAR HEMOGLOBIN 31.4 pg (27.0-33.0); PLATELET COUNT, AUTOMATED 257 10^3/uL (150-450); RED BLOOD COUNT 3.03 10^6/uL (4.00-5.40); RED CELL DISTRIBUTION WIDTH 17.2 % (11.5-14.5); WHITE BLOOD COUNT 5.6 10^3/uL (4.0-10.0)
[2017-06-09] MEDS: SLF 3 ML SYR IV ×3 (06:24→21:17)
[2017-06-09 06:42] LABS: ANION GAP 10 MEQ/L (8-16); BLOOD UREA NITROGEN 6 MG/DL (7-18); CARBON DIOXIDE LEVEL 23 MEQ/L (21-32); CHLORIDE LEVEL 108 MEQ/L (98-107); CREATININE FOR GFR 0.83 MG/DL (0.55-1.02); GLOMERULAR FILTRATION RATE > 60.0 (>58); GLUCOSE, FASTING 99 MG/DL (70-105); MAGNESIUM LEVEL 1.7 MG/DL (1.8-2.4); POTASSIUM SERUM 3.6 MEQ/L (3.5-5.1); SODIUM LEVEL 141 MEQ/L (136-145)
[2017-06-09 07:25] LABS: RETIC HEMOGLOBIN EQUIVALENT 36.1 pg (24-36); RETICULOCYTE # 128.6 10^9/L (17-77); RETICULOCYTE % 4.2 % (0.5-1.5)
[2017-06-09 07:28] LABS: SLIDE REVIEW Report; SOURCE PERIPHERAL SMEAR
[2017-06-09 07:29] LABS: REASON FOR REVIEW COMPREHENSIVE REVIEW
[2017-06-09 07:35] LABS: ACETAMINOPHEN LEVEL 7.3 UG/ML (10.0-30.0); FERRITIN 83 NG/ML (8-252); IRON (FE) 35 UG/DL (50-170); PERCENT SATURATION 15.8 % (13.2-45.0); SALICYLATE LEVEL < 1.7 MG/DL (5.0-30.0); TOTAL IRON BINDING CAPACITY 221 UG/DL (250-450)
[2017-06-09 07:35] LABS: MAGNESIUM LEVEL 1.6 MG/DL (1.8-2.4)
[2017-06-09] MEDS: MULTIVITAMINS CHILDREN'S CHEWABLE TABLET PO (09:16)
[2017-06-09] MEDS: CitaloPRAM (CeleXA) 20 MG TAB PO (09:17)
[2017-06-09] MEDS: busPIRone 10 MG TAB PO ×2 (09:17→21:17)
[2017-06-09] MEDS: TOLTERODINE TARTRATE 2 MG LA CAP (DETROL LA) PO ×2 (09:17→21:17)
[2017-06-09] MEDS: OMEPRAZOLE 20 MG CAP PO (09:18)
[2017-06-09] MEDS: buPROPion **XL** TABLET 150MG (WELLBUTRIN XL) PO (09:18)
[2017-06-09] MEDS: FOLIC ACID 1 MG TAB PO (12:49)
[2017-06-09] MEDS: OXAZEPAM 10 MG CAP PO (12:49)
[2017-06-09] MEDS: POTASSIUM CHLORIDE 10 MEQ SR TABLET PO (12:50)
[2017-06-09] MEDS: MAG SULF 1GM/100ML (MAG RUN) 1 GM in APPROPRIATE DILUENT 1 EA IV ×2 (14:07→15:03)
[2017-06-09] MEDS: THIAMINE 100 MG TAB PO (14:10)
[2017-06-09] MEDS: HEPARIN SOD (PORCINE) 5000 UNITS/ML VIAL SQ ×2 (14:10→21:17)
[2017-06-09] MEDS: NICOTINE POLACRILEX 2 MG GUM PO (15:03)
[2017-06-09] MEDS: hydrOXYzine 50 MG TAB PO (15:03)
[2017-06-10] MEDS: SLF 3 ML SYR IV ×3 (06:02→21:18)
[2017-06-10] MEDS: HEPARIN SOD (PORCINE) 5000 UNITS/ML VIAL SQ ×3 (06:03→21:17)
[2017-06-10] MEDS: ACETAMINOPHEN TAB 650MG DOSE (2X325MG) PO (06:03)
[2017-06-10 06:07] LABS: HEMOGLOBIN 9.4 g/dl (12.0-16.0); MEAN CORPUSCULAR HEMOGLOBIN 31.1 pg (27.0-33.0); MEAN CORPUSCULAR HGB CONC 31.3 g/dl (32.0-36.5); MEAN CORPUSCULAR VOLUME 99.3 fl (80.0-96.0); PLATELET COUNT, AUTOMATED 263 10^3/uL (150-450); RED BLOOD COUNT 3.02 10^6/uL (4.00-5.40); RED CELL DISTRIBUTION WIDTH 17.7 % (11.5-14.5); WHITE BLOOD COUNT 4.4 10^3/uL (4.0-10.0)
[2017-06-10 06:20] LABS: ANION GAP 7 MEQ/L (8-16); BLOOD UREA NITROGEN 7 MG/DL (7-18); CALCIUM LEVEL 7.8 MG/DL (8.5-10.1); CARBON DIOXIDE LEVEL 26 MEQ/L (21-32); CHLORIDE LEVEL 109 MEQ/L (98-107); CREATININE FOR GFR 0.73 MG/DL (0.55-1.02); GLOMERULAR FILTRATION RATE > 60.0 (>58); GLUCOSE, FASTING 94 MG/DL (70-105); POTASSIUM SERUM 3.8 MEQ/L (3.5-5.1); SODIUM LEVEL 142 MEQ/L (136-145)
[2017-06-10] MEDS: POTASSIUM CHLORIDE 10 MEQ SR TABLET PO (06:59)
[2017-06-10 08:13] LABS: ALKALINE PHOSPHATASE 84 U/L (45-117); ALT/SGPT 75 U/L (12-78); AST/SGOT 102 U/L (7-37); BILIRUBIN,TOTAL 0.3 MG/DL (0.2-1.0)
[2017-06-10 08:14] LABS: ALBUMIN 2.6 GM/DL (3.2-5.2); ALBUMIN/GLOBULIN RATIO 0.84 (1.00-1.93); BILIRUBIN,DIRECT < 0.1 MG/DL (0.0-0.2); TOTAL PROTEIN 5.7 GM/DL (6.4-8.2)
[2017-06-10] MEDS: busPIRone 10 MG TAB PO ×2 (09:21→21:25)
[2017-06-10] MEDS: TOLTERODINE TARTRATE 2 MG LA CAP (DETROL LA) PO ×2 (09:22→21:25)
[2017-06-10] MEDS: THIAMINE 100 MG TAB PO (09:22)
[2017-06-10] MEDS: CitaloPRAM (CeleXA) 20 MG TAB PO (09:22)
[2017-06-10] MEDS: buPROPion **XL** TABLET 150MG (WELLBUTRIN XL) PO (09:22)
[2017-06-10] MEDS: FOLIC ACID 1 MG TAB PO (09:22)
[2017-06-10] MEDS: MULTIVITAMINS CHILDREN'S CHEWABLE TABLET PO (09:22)
[2017-06-10] MEDS: OMEPRAZOLE 20 MG CAP PO (09:22)
[2017-06-10] MEDS: OXAZEPAM 10 MG CAP PO ×2 (09:26→19:09)
[2017-06-10] MEDS: NICOTINE POLACRILEX 2 MG GUM PO (13:20)
[2017-06-10] MEDS: MIRTAZAPINE 15 MG TAB PO (21:18)
[2017-06-10] MEDS: SIMVASTATIN 10 MG TAB PO (21:19)
[2017-06-11 03:53] LABS: HEMATOCRIT 31.7 % (36.0-47.0); HEMOGLOBIN 9.8 g/dl (12.0-16.0); MEAN CORPUSCULAR HEMOGLOBIN 30.2 pg (27.0-33.0); MEAN CORPUSCULAR HGB CONC 30.9 g/dl (32.0-36.5); MEAN CORPUSCULAR VOLUME 97.5 fl (80.0-96.0); PLATELET COUNT, AUTOMATED 307 10^3/uL (150-450); RED BLOOD COUNT 3.25 10^6/uL (4.00-5.40); RED CELL DISTRIBUTION WIDTH 17.8 % (11.5-14.5); WHITE BLOOD COUNT 5.1 10^3/uL (4.0-10.0)
[2017-06-11 04:06] LABS: ANION GAP 5 MEQ/L (8-16); BLOOD UREA NITROGEN 6 MG/DL (7-18); CALCIUM LEVEL 7.9 MG/DL (8.5-10.1); CARBON DIOXIDE LEVEL 27 MEQ/L (21-32); CHLORIDE LEVEL 109 MEQ/L (98-107); CREATININE FOR GFR 0.81 MG/DL (0.55-1.02); GLOMERULAR FILTRATION RATE > 60.0 (>58); GLUCOSE, FASTING 95 MG/DL (70-105); POTASSIUM SERUM 3.8 MEQ/L (3.5-5.1); SODIUM LEVEL 141 MEQ/L (136-145)
[2017-06-11] MEDS: OXAZEPAM 10 MG CAP PO ×2 (04:42→12:15)
[2017-06-11] MEDS: HEPARIN SOD (PORCINE) 5000 UNITS/ML VIAL SQ (06:47)
[2017-06-11] MEDS: SLF 3 ML SYR IV (06:47)
[2017-06-11] MEDS: TOLTERODINE TARTRATE 2 MG LA CAP (DETROL LA) PO (08:49)
[2017-06-11] MEDS: MULTIVITAMINS CHILDREN'S CHEWABLE TABLET PO (08:49)
[2017-06-11] MEDS: OMEPRAZOLE 20 MG CAP PO (08:49)
[2017-06-11] MEDS: ACETAMINOPHEN TAB 650MG DOSE (2X325MG) PO (08:50)
[2017-06-11] MEDS: FOLIC ACID 1 MG TAB PO (08:50)
[2017-06-11] MEDS: THIAMINE 100 MG TAB PO (08:50)
[2017-06-11] MEDS: buPROPion **XL** TABLET 150MG (WELLBUTRIN XL) PO (08:51)
[2017-06-11] MEDS: busPIRone 10 MG TAB PO (08:51)
[2017-06-11] MEDS: CitaloPRAM (CeleXA) 20 MG TAB PO (08:51)
== END 2017-06-11 12:43 | disposition home or self-care (01) | DRG 775 ==
LOC: M PCU 06-09 01:11 → M ED 16:32 → M ED INP 23:01
DX: F10.239 Alcohol dependence with withdrawal, unspecified (principal); R55 Syncope and collapse; K70.10 Alcoholic hepatitis without ascites; F10.229 Alcohol dependence with intoxication, unspecified; F17.210 Nicotine dependence, cigarettes, uncomplicated; E87.6 Hypokalemia; I10 Essential (primary) hypertension; E78.5 Hyperlipidemia, unspecified; F41.9 Anxiety disorder, unspecified; F32.9 Major depressive disorder, single episode, unspecified; K21.9 Gastro-esophageal reflux disease without esophagitis; Z72.89 Other problems related to lifestyle; Z79.899 Other long term (current) drug therapy; Z88.0 Allergy status to penicillin; Z88.5 Allergy status to narcotic agent; Z90.49 Acquired absence of other specified parts of digestive tract

== ENCOUNTER → 2017-06-17 | Outpatient (REF) | payer BC ==
[2017-06-17 16:07] LABS: BASO # 0.1 10^3/uL (0.0-0.2); EOS # 0.2 10^3/uL (0.0-0.50); EOS % 2.5 % (0.0-3.0); HEMATOCRIT 36.7 % (36.0-47.0); HEMOGLOBIN 11.3 g/dl (12.0-16.0); IMMATURE GRANULOCYTE % 0.4 % (0-0); LYMPH % 30.4 % (24.0-44.0); MEAN CORPUSCULAR HEMOGLOBIN 30.9 pg (27.0-33.0); MEAN CORPUSCULAR HGB CONC 30.8 g/dl (32.0-36.5); MEAN CORPUSCULAR VOLUME 100.3 fl (80.0-96.0); MONO # 0.7 10^3/uL (0.0-0.8); MONO % 10.2 % (0.0-5.0); NEUTROPHILS # 3.7 10^3/uL (1.8-7.7); NEUTROPHILS % 55.5 % (36.0-66.0); PLATELET COUNT, AUTOMATED 210 10^3/uL (150-450); RED BLOOD COUNT 3.66 10^6/uL (4.00-5.40); RED CELL DISTRIBUTION WIDTH 17.6 % (11.5-14.5); WHITE BLOOD COUNT 6.7 10^3/uL (4.0-10.0)
[2017-06-17 16:20] LABS: ALBUMIN 3.3 GM/DL (3.2-5.2); ALBUMIN/GLOBULIN RATIO 1.03 (1.00-1.93); ALKALINE PHOSPHATASE 80 U/L (45-117); ALT/SGPT 59 U/L (12-78); ANION GAP 10 MEQ/L (8-16); AST/SGOT 74 U/L (7-37); BILIRUBIN,TOTAL 0.3 MG/DL (0.2-1.0); BLOOD UREA NITROGEN 6 MG/DL (7-18); CALCIUM LEVEL 8.9 MG/DL (8.5-10.1); CARBON DIOXIDE LEVEL 25 MEQ/L (21-32); CHLORIDE LEVEL 108 MEQ/L (98-107); CHOLESTEROL LEVEL 135 MG/DL (<200); CHOLESTEROL RISK RATIO 2.109 (<5); CREATININE FOR GFR 0.82 MG/DL (0.55-1.02); GLOMERULAR FILTRATION RATE > 60.0 (>58); GLUCOSE, FASTING 106 MG/DL (70-105); HDL CHOLESTEROL 64 MG/DL (>40); LDL CHOLESTEROL 49.4 MG/DL (<100); NON-HDL-C 71 MG/DL; POTASSIUM SERUM 4.4 MEQ/L (3.5-5.1); SODIUM LEVEL 143 MEQ/L (136-145); TOTAL PROTEIN 6.5 GM/DL (6.4-8.2); TRIGLYCERIDES LEVEL 108 MG/DL (<150)
== END ==
LOC: M SFHCSACK 15:05
DX: F41.9 Anxiety disorder, unspecified (principal); E78.2 Mixed hyperlipidemia
CPT/HCPCS: 80053

== ENCOUNTER → 2017-08-18 | Outpatient (REF) | payer BC ==
[2017-08-18 13:36] LABS: REASON FOR REVIEW ANEMIA / RBC MORPH; SLIDE REVIEW Report; SOURCE PERIPHERAL SMEAR
[2017-08-18 13:47] LABS: INR 0.93; PROTHROMBIN TIME 12.5 SECONDS (12.4-14.5)
[2017-08-18 13:48] LABS: PARTIAL THROMBOPLASTIN TIME 28.3 SECONDS (26.8-37.9)
[2017-08-18 13:57] LABS: VITAMIN B12 LEVEL 293 PG/ML (247-911)
[2017-08-18 14:19] LABS: TOTAL PROTEIN 7.6 GM/DL (6.4-8.2)
[2017-08-18 14:19] LABS: GAMMA GLUTAMYLTRANSPEPTIDASE 53 U/L (5-55)
[2017-08-20 00:06] LABS: BETA 2 MICROGLOBULIN 1.5 mg/L (0.6-2.4)
[2017-08-20 00:06] LABS: ENDOMYSIAL ABY IgA Negative (Negative); FREE KAPPA LIGHT CHAINS SERUM 30.1 mg/L (3.3-19.4); FREE LAMBDA LIGHT CHAINS SERUM 22.5 mg/L (5.7-26.3); HAPTOGLOBIN 185 mg/dL (34-200); KAPPA/LAMBDA RATIO SERUM 1.34 (0.26-1.65); TISSUE TRANSGLUTAMINASE IgA <2 U/mL (0-3)
[2017-08-22 14:20] LABS: ALBUMIN 3.92 GM/DL (3.29-5.55); ALBUMIN % 51.6 % (55.8-66.1); ALPHA-1-GLOBULIN % 5.2 % (2.9-4.9); ALPHA-2-GLOBULINS % 10.5 % (7.1-11.8); BETA-1-GLOBULINS % 7.8 % (4.7-7.2); BETA-2-GLOBULINS % 6.6 % (3.2-6.5); GAMMA GLOBULIN % 18.3 % (11.1-18.8)
[2017-08-22 14:21] LABS: BETA-1-GLOBULINS 0.59 GM/DL (0.28-0.60); GAMMA GLOBULINS 1.39 GM/DL (0.65-1.58)
== END ==
LOC: M LAB REF 12:50
DX: D64.9 Anemia, unspecified (principal)

== ENCOUNTER 2018-02-28 21:04 | Inpatient (IN) | payer BC ==
[2018-02-28] MEDS: NS 1,000 ML IV ×2 (21:45→23:45)
[2018-02-28 21:52] LABS: BASO # 0.1 10^3/uL (0.0-0.2); BASO % 0.3 % (0.0-1.0); HEMATOCRIT 42.6 % (36.0-47.0); HEMOGLOBIN 13.7 g/dl (12.0-15.5); IMMATURE GRANULOCYTE % 0.6 % (0-3.0); LYMPH % 9.9 % (24.0-44.0); MEAN CORPUSCULAR HEMOGLOBIN 29.7 pg (27.0-33.0); MEAN CORPUSCULAR HGB CONC 32.2 g/dl (32.0-36.5); MEAN CORPUSCULAR VOLUME 92.2 fl (80.0-96.0); MONO # 0.7 10^3/uL (0.0-0.8); MONO % 3.3 % (0.0-5.0); NEUTROPHILS % 85.9 % (36.0-66.0); PLATELET COUNT, AUTOMATED 343 10^3/uL (150-450); RED BLOOD COUNT 4.62 10^6/uL (4.00-5.40); RED CELL DISTRIBUTION WIDTH 15.9 % (11.5-14.5); WHITE BLOOD COUNT 19.8 10^3/uL (4.0-10.0)
[2018-02-28 22:17] LABS: CONTROL LINE HCG INT CTR LINE PRESENT; HCG, SERUM QUALITATIVE NEGATIVE (NEGATIVE)
[2018-02-28] MEDS: ONDANSETRON 4MG/2ML VIAL (J2405) IV (22:27)
[2018-02-28] MEDS: LORazepam 2 MG/ML VIAL (J2060) IV ×2 (22:28→23:31)
[2018-02-28 22:32] LABS: ALBUMIN 4.4 GM/DL (3.2-5.2); ALBUMIN/GLOBULIN RATIO 0.94 (1.00-1.93); ALKALINE PHOSPHATASE 159 U/L (45-117); ALT/SGPT 86 U/L (12-78); AMYLASE 45 U/L (25-115); ANION GAP 26 MEQ/L (8-16); AST/SGOT 143 U/L (7-37); BILIRUBIN,DIRECT 0.3 MG/DL (0.0-0.2); BLOOD UREA NITROGEN 10 MG/DL (7-18); CALCIUM LEVEL 11.1 MG/DL (8.5-10.1); CARBON DIOXIDE LEVEL 16 MEQ/L (21-32); CHLORIDE LEVEL 93 MEQ/L (98-107); CPK CREATINE PHOSPHOKINASE 3119 U/L (26-192); ETHYL ALCOHOL (ETHANOL) < 0.003 % (0.000-0.010); GLOMERULAR FILTRATION RATE 57.4 (>58); GLUCOSE, FASTING 129 MG/DL (70-100); LIPASE 148 U/L (73-393); MB/CK RELATIVE INDEX 0.26 (< OR =4); SODIUM LEVEL 135 MEQ/L (136-145); TOTAL PROTEIN 9.1 GM/DL (6.4-8.2); TROPONIN I < 0.02 NG/ML (< 0.10)
[2018-02-28 22:33] LABS: KETONE, URINE AUTO RFX 2+ mg/dL (NEGATIVE); MUCUS, URINE RFX SMALL (NEGATIVE); NITRITE, URINE AUTO RFX NEGATIVE (NEGATIVE); RBC, URINE AUTO RFX 48 /HPF (0-3); SPECIFIC GRAVITY UR AUTO RFX 1.018 (1.002-1.035); SQUAM EPITHELIAL CELL UR AURFX 7 /HPF (0-6)
[2018-02-28] MEDS: PROMETHAZINE INJ 25 MG/ML VIAL (J2550) IV (22:45)
[2018-02-28 23:07] LABS: LACTIC ACID SEPSIS PROTOCOL 2.1 MMOL/L (0.4-2.0)
[2018-02-28 23:19] LABS: LEUKOCYTE ESTERASE UR AUTO RFX TRACE (NEGATIVE); WBC, URINE AUTO RFX 11 /HPF (0-3)
[2018-02-28] MEDS ORDERED: ISOVUE-370 76% 100ML VIAL (Q9967) As Ordered (23:20)
[2018-02-28 23:24] LABS: INR 0.99; PROTHROMBIN TIME 13.2 SECONDS (12.1-14.4)
[2018-02-28 23:25] LABS: PARTIAL THROMBOPLASTIN TIME 28.6 SECONDS (25.4-37.6)
[2018-02-28] MEDS: KETOROLAC 30 MG/ML VIAL (J1885) IV (23:45)
[2018-03-01 00:12] LABS: ACETONE/KETONE > 46.00 MG/DL (<2.81)
[2018-03-01 00:18] LABS: OSMOLALITY SERUM 287 MOSM/KG (275-295)
[2018-03-01] MEDS ORDERED: ACETAMINOPHEN TAB 650MG DOSE (2X325MG) PO (01:30)
[2018-03-01] MEDS ORDERED: LORazepam 2 MG TAB PO (01:30)
[2018-03-01] MEDS ORDERED: NICOTINE POLACRILEX 2 MG GUM PO (01:30)
[2018-03-01] MEDS: LORazepam 2 MG/ML VIAL (J2060) IV (01:41)
[2018-03-01] MEDS: NS 1,000 ML IV ×3 (01:41→21:31)
[2018-03-01 01:51] LABS: MAGNESIUM LEVEL 1.3 MG/DL (1.8-2.4)
[2018-03-01] MEDS: METOCLOPRAMIDE INJ 10MG/2ML VIAL (J2765) IV (01:51)
[2018-03-01 02:22] LABS: PHOSPHORUS LEVEL 4.6 MG/DL (2.5-4.9)
[2018-03-01] MEDS: MAGNESIUM OXIDE 400 MG TAB (MAG-OX) PO (03:07)
[2018-03-01 04:03] LABS: LACTIC ACID SEPSIS PROTOCOL 0.7 MMOL/L (0.4-2.0)
[2018-03-01] MEDS: HEPARIN SOD (PORCINE) 5000 UNITS/ML VIAL SC ×3 (05:14→21:30)
[2018-03-01] MEDS: PANTOPRAZOLE 40MG INJ (PROTONIX) (C9113) IV (05:14)
[2018-03-01 06:07] LABS: HEMATOCRIT 35.9 % (36.0-47.0); MEAN CORPUSCULAR HEMOGLOBIN 29.5 pg (27.0-33.0); MEAN CORPUSCULAR VOLUME 92.1 fl (80.0-96.0); PLATELET COUNT, AUTOMATED 289 10^3/uL (150-450); WHITE BLOOD COUNT 11.2 10^3/uL (4.0-10.0)
[2018-03-01 06:18] LABS: HEMOGLOBIN 11.5 g/dl (12.0-15.5)
[2018-03-01 07:03] LABS: ALBUMIN 3.3 GM/DL (3.2-5.2); ALBUMIN/GLOBULIN RATIO 0.83 (1.00-1.93); ALKALINE PHOSPHATASE 117 U/L (45-117); ALT/SGPT 64 U/L (12-78); ANION GAP 15 MEQ/L (8-16); AST/SGOT 98 U/L (7-37); BILIRUBIN,TOTAL 0.8 MG/DL (0.2-1.0); BLOOD UREA NITROGEN 9 MG/DL (7-18); CALCIUM LEVEL 8.4 MG/DL (8.5-10.1); CARBON DIOXIDE LEVEL 20 MEQ/L (21-32); CHLORIDE LEVEL 101 MEQ/L (98-107); CPK CREATINE PHOSPHOKINASE 1819 U/L (26-192); CREATININE FOR GFR 0.85 MG/DL (0.55-1.30); GLOMERULAR FILTRATION RATE > 60.0 (>58); GLUCOSE, FASTING 83 MG/DL (70-100); MAGNESIUM LEVEL 1.4 MG/DL (1.8-2.4); POTASSIUM SERUM 3.9 MEQ/L (3.5-5.1); SODIUM LEVEL 136 MEQ/L (136-145); TOTAL PROTEIN 7.3 GM/DL (6.4-8.2)
[2018-03-01] MEDS: THIAMINE 100 MG TAB PO ×2 (08:51→20:33)
[2018-03-01] MEDS: MAG SULF 1GM/100ML (MAG RUN) 1 GM in APPROPRIATE DILUENT 1 EA IV (08:51)
[2018-03-01] MEDS: FOLIC ACID 1 MG TAB PO (08:51)
[2018-03-01] MEDS: MULTIVITAMINS/MINERALS THERAP 1 TAB PO (08:51)
[2018-03-01] MEDS: TOLTERODINE TARTRATE 2 MG LA CAP (DETROL LA) PO ×2 (08:52→20:33)
[2018-03-01 09:28] LABS: AMPHETAMINES LEVEL URINE NEGATIVE (NEGATIVE); BARBITURATES URINE NEGATIVE (NEGATIVE); BENZODIAZEPINES URINE NEGATIVE (NEGATIVE); CANNABINOIDS URINE NEGATIVE (NEGATIVE); COCAINE METABOLITE URINE NEGATIVE (NEGATIVE); METHADONE URINE NEGATIVE (NEGATIVE); OPIATES URINE NEGATIVE (NEGATIVE); PHENCYCLIDINE URINE NEGATIVE (NEGATIVE)
[2018-03-01] MEDS: ONDANSETRON 4MG/2ML VIAL (J2405) IV (09:55)
[2018-03-01] MEDS: NITROGLYCERIN 0.4 MG SUBL TABLET SL ×3 (10:16→10:27)
[2018-03-01] MEDS: GI COCKTAIL 50ML BTL(HYOSCYAMINE/MAALOX/LIDOCAINE VISCOUS)(1:3:1) PO (10:50)
[2018-03-01] MEDS: MORPHINE 4 MG/ML 1ML VIAL/SYRINGE (J2270) IV ×2 (10:51→20:08)
[2018-03-01] MEDS ORDERED: ISOVUE-300 61% 50ML VIAL (Q9967) As Ordered (10:58)
[2018-03-01 11:10] LABS: CPK CREATINE PHOSPHOKINASE 1503 U/L (26-192); MB/CK RELATIVE INDEX 0.27 (< OR =4); TROPONIN I < 0.02 NG/ML (< 0.10)
[2018-03-01 16:56] LABS: CPK CREATINE PHOSPHOKINASE 1286 U/L (26-192); MB/CK RELATIVE INDEX 0.28 (< OR =4); TROPONIN I < 0.02 NG/ML (< 0.10)
[2018-03-01] MEDS: traZODone 50 MG TAB PO (21:30)
[2018-03-01] MEDS: OXAZEPAM 10 MG CAP PO (23:20)
[2018-03-02] MEDS: GI COCKTAIL 50ML BTL(HYOSCYAMINE/MAALOX/LIDOCAINE VISCOUS)(1:3:1) PO ×2 (05:38→18:45)
[2018-03-02 06:03] LABS: HEMATOCRIT 31.4 % (36.0-47.0); MEAN CORPUSCULAR HEMOGLOBIN 29.7 pg (27.0-33.0); MEAN CORPUSCULAR HGB CONC 31.8 g/dl (32.0-36.5); MEAN CORPUSCULAR VOLUME 93.2 fl (80.0-96.0); PLATELET COUNT, AUTOMATED 208 10^3/uL (150-450); RED BLOOD COUNT 3.37 10^6/uL (4.00-5.40); RED CELL DISTRIBUTION WIDTH 15.9 % (11.5-14.5); WHITE BLOOD COUNT 7.1 10^3/uL (4.0-10.0)
[2018-03-02] MEDS: PANTOPRAZOLE 40MG INJ (PROTONIX) (C9113) IV (06:04)
[2018-03-02] MEDS: HEPARIN SOD (PORCINE) 5000 UNITS/ML VIAL SC ×3 (06:04→20:58)
[2018-03-02 06:29] LABS: ALBUMIN 2.8 GM/DL (3.2-5.2); ALBUMIN/GLOBULIN RATIO 0.74 (1.00-1.93); ALKALINE PHOSPHATASE 94 U/L (45-117); ALT/SGPT 47 U/L (12-78); ANION GAP 12 MEQ/L (8-16); AST/SGOT 58 U/L (7-37); BILIRUBIN,TOTAL 0.5 MG/DL (0.2-1.0); BLOOD UREA NITROGEN 8 MG/DL (7-18); CALCIUM LEVEL 7.6 MG/DL (8.5-10.1); CARBON DIOXIDE LEVEL 21 MEQ/L (21-32); CHLORIDE LEVEL 108 MEQ/L (98-107); CPK CREATINE PHOSPHOKINASE 855 U/L (26-192); CREATININE FOR GFR 0.61 MG/DL (0.55-1.30); GLOMERULAR FILTRATION RATE > 60.0 (>58); GLUCOSE, FASTING 72 MG/DL (70-100); MAGNESIUM LEVEL 1.9 MG/DL (1.8-2.4); POTASSIUM SERUM 3.4 MEQ/L (3.5-5.1); SODIUM LEVEL 141 MEQ/L (136-145); TOTAL PROTEIN 6.6 GM/DL (6.4-8.2)
[2018-03-02] MEDS: NS 1,000 ML IV ×2 (06:45→17:05)
[2018-03-02] MEDS: THIAMINE 100 MG TAB PO ×2 (09:47→20:57)
[2018-03-02] MEDS: TOLTERODINE TARTRATE 2 MG LA CAP (DETROL LA) PO ×2 (09:47→20:57)
[2018-03-02] MEDS: MULTIVITAMINS/MINERALS THERAP 1 TAB PO (09:47)
[2018-03-02] MEDS: FOLIC ACID 1 MG TAB PO (09:47)
[2018-03-02] MEDS: OXAZEPAM 10 MG CAP PO ×3 (09:52→23:41)
[2018-03-02] MEDS: SUCRALFATE SUSP 1GM/10ML UD PO ×3 (12:00→23:41)
[2018-03-02] MEDS ORDERED: PROPOFOL 200 MG/20 ML VIAL As Ordered (15:31)
[2018-03-02] MEDS ORDERED: LIDOCAINE 2% MDV 20 ML VIAL As Ordered (15:31)
[2018-03-02] MEDS: traZODone 50 MG TAB PO (22:15)
[2018-03-03] MEDS: NS 1,000 ML IV ×2 (02:47→13:32)
[2018-03-03 05:31] LABS: HEMATOCRIT 28.4 % (36.0-47.0); HEMOGLOBIN 9.3 g/dl (12.0-15.5); MEAN CORPUSCULAR HEMOGLOBIN 29.8 pg (27.0-33.0); MEAN CORPUSCULAR HGB CONC 32.7 g/dl (32.0-36.5); PLATELET COUNT, AUTOMATED 175 10^3/uL (150-450); RED BLOOD COUNT 3.12 10^6/uL (4.00-5.40); RED CELL DISTRIBUTION WIDTH 15.5 % (11.5-14.5); WHITE BLOOD COUNT 5.4 10^3/uL (4.0-10.0)
[2018-03-03 05:59] LABS: ALBUMIN 2.5 GM/DL (3.2-5.2); ALBUMIN/GLOBULIN RATIO 0.68 (1.00-1.93); ALKALINE PHOSPHATASE 75 U/L (45-117); ALT/SGPT 39 U/L (12-78); ANION GAP 10 MEQ/L (8-16); AST/SGOT 33 U/L (7-37); BILIRUBIN,TOTAL 0.3 MG/DL (0.2-1.0); BLOOD UREA NITROGEN 3 MG/DL (7-18); CALCIUM LEVEL 7.3 MG/DL (8.5-10.1); CARBON DIOXIDE LEVEL 24 MEQ/L (21-32); CHLORIDE LEVEL 107 MEQ/L (98-107); CPK CREATINE PHOSPHOKINASE 484 U/L (26-192); CREATININE FOR GFR 0.54 MG/DL (0.55-1.30); GLOMERULAR FILTRATION RATE > 60.0 (>58); GLUCOSE, FASTING 84 MG/DL (70-100); MAGNESIUM LEVEL 1.6 MG/DL (1.8-2.4); POTASSIUM SERUM 3.1 MEQ/L (3.5-5.1); SODIUM LEVEL 141 MEQ/L (136-145); TOTAL PROTEIN 6.2 GM/DL (6.4-8.2)
[2018-03-03] MEDS: HEPARIN SOD (PORCINE) 5000 UNITS/ML VIAL SC ×3 (05:59→21:36)
[2018-03-03] MEDS: SUCRALFATE SUSP 1GM/10ML UD PO ×4 (05:59→23:57)
[2018-03-03] MEDS: GI COCKTAIL 50ML BTL(HYOSCYAMINE/MAALOX/LIDOCAINE VISCOUS)(1:3:1) PO (05:59)
[2018-03-03] MEDS: PANTOPRAZOLE 40MG INJ (PROTONIX) (C9113) IV (05:59)
[2018-03-03] MEDS: MULTIVITAMINS/MINERALS THERAP 1 TAB PO (08:06)
[2018-03-03] MEDS: TOLTERODINE TARTRATE 2 MG LA CAP (DETROL LA) PO ×2 (08:06→20:25)
[2018-03-03] MEDS: FOLIC ACID 1 MG TAB PO (08:07)
[2018-03-03] MEDS: THIAMINE 100 MG TAB PO ×2 (08:07→20:25)
[2018-03-03] MEDS: ONDANSETRON 4MG/2ML VIAL (J2405) IV (08:59)
[2018-03-03] MEDS: MAG SULF 1GM/100ML (MAG RUN) 1 GM in APPROPRIATE DILUENT 1 EA IV (08:59)
[2018-03-03] MEDS: OMEPRAZOLE 20 MG CAP PO (09:44)
[2018-03-03] MEDS: OXAZEPAM 10 MG CAP PO (09:44)
[2018-03-03] MEDS: POTASSIUM CHLORIDE 10 MEQ SR TABLET PO ×2 (09:45→12:15)
[2018-03-03] MEDS: SIMVASTATIN 10 MG TAB PO (20:25)
[2018-03-04] MEDS: NS 1,000 ML IV (02:45)
[2018-03-04] MEDS: SUCRALFATE SUSP 1GM/10ML UD PO ×2 (06:17→11:57)
[2018-03-04] MEDS: HEPARIN SOD (PORCINE) 5000 UNITS/ML VIAL SC (06:18)
[2018-03-04 06:49] LABS: HEMATOCRIT 30.1 % (36.0-47.0); HEMOGLOBIN 9.7 g/dl (12.0-15.5); MEAN CORPUSCULAR HEMOGLOBIN 29.8 pg (27.0-33.0); MEAN CORPUSCULAR HGB CONC 32.2 g/dl (32.0-36.5); MEAN CORPUSCULAR VOLUME 92.6 fl (80.0-96.0); PLATELET COUNT, AUTOMATED 190 10^3/uL (150-450); RED BLOOD COUNT 3.25 10^6/uL (4.00-5.40); RED CELL DISTRIBUTION WIDTH 15.9 % (11.5-14.5); WHITE BLOOD COUNT 5.5 10^3/uL (4.0-10.0)
[2018-03-04 07:21] LABS: ALBUMIN 2.7 GM/DL (3.2-5.2); ALBUMIN/GLOBULIN RATIO 0.75 (1.00-1.93); ALKALINE PHOSPHATASE 71 U/L (45-117); ALT/SGPT 32 U/L (12-78); ANION GAP 8 MEQ/L (8-16); AST/SGOT 30 U/L (7-37); BILIRUBIN,TOTAL 0.3 MG/DL (0.2-1.0); BLOOD UREA NITROGEN 1 MG/DL (7-18); CALCIUM LEVEL 7.5 MG/DL (8.5-10.1); CARBON DIOXIDE LEVEL 25 MEQ/L (21-32); CHLORIDE LEVEL 108 MEQ/L (98-107); CPK CREATINE PHOSPHOKINASE 289 U/L (26-192); CREATININE FOR GFR 0.59 MG/DL (0.55-1.30); GLOMERULAR FILTRATION RATE > 60.0 (>58); GLUCOSE, FASTING 94 MG/DL (70-100); POTASSIUM SERUM 3.5 MEQ/L (3.5-5.1); SODIUM LEVEL 141 MEQ/L (136-145); TOTAL PROTEIN 6.3 GM/DL (6.4-8.2)
[2018-03-04] MEDS: TOLTERODINE TARTRATE 2 MG LA CAP (DETROL LA) PO (08:19)
[2018-03-04] MEDS: MULTIVITAMINS/MINERALS THERAP 1 TAB PO (08:19)
[2018-03-04] MEDS: OMEPRAZOLE 20 MG CAP PO (08:19)
[2018-03-04] MEDS: FOLIC ACID 1 MG TAB PO (08:19)
== END 2018-03-04 14:44 | disposition home or self-care (01) | DRG 243 ==
LOC: M ED INP 03-01 01:03 → M MSPAV 03-01 02:31 → M ED 21:04
PROC: 0DB38ZX Excision of Lower Esophagus, Via Natural or Artificial Opening Endoscopic, Diagnostic (ICD-10-PCS; principal; 2018-03-02 15:00)
DX: K21.0 Gastro-esophageal reflux disease with esophagitis (principal); E87.2 Acidosis; M62.82 Rhabdomyolysis; E83.42 Hypomagnesemia; K70.10 Alcoholic hepatitis without ascites; I10 Essential (primary) hypertension; R11.2 Nausea with vomiting, unspecified; F17.210 Nicotine dependence, cigarettes, uncomplicated; F10.239 Alcohol dependence with withdrawal, unspecified; F41.9 Anxiety disorder, unspecified; F32.9 Major depressive disorder, single episode, unspecified; E78.5 Hyperlipidemia, unspecified; M19.90 Unspecified osteoarthritis, unspecified site; R32 Unspecified urinary incontinence; Z79.899 Other long term (current) drug therapy; Z88.0 Allergy status to penicillin; Z88.5 Allergy status to narcotic agent; Z90.49 Acquired absence of other specified parts of digestive tract

== ENCOUNTER → 2018-11-14 | Outpatient (CLI) | payer BC ==
[~2018-11-14] MED LIST changes: +BUSP30TA PO; -CITA20TA4 PO; +CITA20TA6 PO; +FOLI1TAB11 PO; -FOLI1TAB4 PO; +IBUPOTC PO; +LEVO500T3 PO; +MIRT15TA3 PO; +MIRT30TA3; +NICO2GUM50 PO; +OMEP40CA2 PO; +OXAZ10CA3 PO; +SIMV10TA2 PO; +SUCR10SS PO; +THIA100T7 PO; +TOBRSUS8 OU; -TOLT1CAP PO; +TOLT4CAP3 PO; +TRAZ-252 PO; +TRAZ1TAB10 PO; -TRAZ50TA11 PO; -TRAZO50TA PO; +VITACHTA PO; +ZOFR4TAB16 PO
[2018-11-14 20:19] LABS: BASO % 0.6 % (0.0-1.0); EOS # 0.4 10^3/uL (0.0-0.50); EOS % 7.2 % (0.0-3.0); HEMATOCRIT 35.8 % (36.0-47.0); HEMOGLOBIN 11.3 g/dl (12.0-15.5); LYMPH # 2.4 10^3/uL (1.5-4.5); MEAN CORPUSCULAR HGB CONC 31.6 g/dl (32.0-36.5); MEAN CORPUSCULAR VOLUME 88.8 fl (80.0-96.0); MONO # 0.5 10^3/uL (0.0-0.8); MONO % 9.6 % (0.0-5.0); NEUTROPHILS # 2.1 10^3/uL (1.8-7.7); NEUTROPHILS % 38.2 % (36.0-66.0); PLATELET COUNT, AUTOMATED 205 10^3/uL (150-450); RED BLOOD COUNT 4.03 10^6/uL (4.00-5.40); WHITE BLOOD COUNT 5.4 10^3/uL (4.0-10.0)
[2018-11-14 20:32] LABS: ALBUMIN 3.4 GM/DL (3.2-5.2); ALT/SGPT 52 U/L (12-78); AMYLASE 46 U/L (25-115); BILIRUBIN,TOTAL 0.2 MG/DL (0.2-1.0); BLOOD UREA NITROGEN 6 MG/DL (7-18); CARBON DIOXIDE LEVEL 20 MEQ/L (21-32); CHLORIDE LEVEL 108 MEQ/L (98-107); CREATININE FOR GFR 0.81 MG/DL (0.55-1.30); FREE T4 0.65 NG/DL (0.76-1.46); GLOMERULAR FILTRATION RATE > 60.0 (>58); GLUCOSE, FASTING 96 MG/DL (70-100); LIPASE 167 U/L (73-393); POTASSIUM SERUM 4.1 MEQ/L (3.5-5.1); SODIUM LEVEL 137 MEQ/L (136-145); TOTAL PROTEIN 7.4 GM/DL (6.4-8.2)
== END ==
LOC: M WUC 15:44
PROVIDERS: ATTEND Physician Assistant
DX: R10.816 Epigastric abdominal tenderness (principal)

== ENCOUNTER → 2020-05-07 | Outpatient (CLI) | payer BC ==
[~2020-05-07] MED LIST changes: +HYDR1TAB33 PO; -HYDRO50TAB PO; +NICO-13 PO; -NICO2GUM62 PO; +OMEP1CAP73 PO; -OMEP20CA3 PO; -OMEP40CA2 PO; +OMEP40CA97 PO; -SIMV10TA2 PO; +SIMV10TA21 PO; -SUCR10SS PO; +SUCR1ORA2 PO
[2020-05-07 13:52] LABS: BASO # 0.1 10^3/uL (0.0-0.2); BASO % 0.9 % (0.0-1.0); EOS # 0.2 10^3/uL (0.0-0.5); HEMATOCRIT 36.9 % (36.0-47.0); HEMOGLOBIN 10.8 g/dl (12.0-15.5); LYMPH # 1.8 10^3/uL (1.5-5.0); LYMPH % 23.3 % (24.0-44.0); MEAN CORPUSCULAR HEMOGLOBIN 26.9 pg (27.0-33.0); MEAN CORPUSCULAR HGB CONC 29.3 g/dl (32.0-36.5); MONO # 0.8 10^3/uL (0.0-0.8); MONO % 9.9 % (0.0-5.0); NEUTROPHILS # 4.9 10^3/uL (1.5-8.5); NEUTROPHILS % 63.6 % (36.0-66.0); PLATELET COUNT, AUTOMATED 164 10^3/uL (150-450); RED BLOOD COUNT 4.01 10^6/uL (4.00-5.40); WHITE BLOOD COUNT 7.7 10^3/uL (4.0-10.0)
[2020-05-07 14:16] LABS: C REACTIVE PROTEIN QUANTITATIV 1.09 MG/DL (0.00-0.30); RHEUMATOID FACTOR QUANT < 10.0 IU/ML (<15.0)
[2020-05-07 14:20] LABS: ERYTHROCYTE SEDIMENTATION RATE 16 mm/hr (0-20)
[2020-05-12 20:07] LABS: ANTINUCLEAR ANTIBODIES DIRECT Negative (Negative); HLA-B27 Negative (.)
== END ==
LOC: M PLALAB 11:23
PROVIDERS: ATTEND Physician Assistant
DX: M17.0 Bilateral primary osteoarthritis of knee (principal)

== ENCOUNTER → 2021-01-30 | Outpatient (CLI) | payer BC ==
[~2021-01-30] MED LIST changes: +BUPR150T12 PO; -BUPR150T3 PO; +OMEP40CA4 PO; -OMEP40CA97 PO
--- NOTE | 2021-01-30 11:37 | REPVR ---
PROCEDURE INFORMATION: Exam: MR Head Without and With Contrast Exam date and time: 01/30/2021 9:56 AM Age: 45 years old Clinical indication: Syncope and collapse TECHNIQUE: Imaging protocol: MR of the head without and with intravenous contrast. Contrast material: PROHNACE; Contrast volume: 19 ml; Contrast route: INTRAVENOUS (IV); COMPARISON: CT Head without contrast 02/28/2018 9:36 PM FINDINGS: Brain: There is no extra-axial collection or intra-axial mass. Mild diffuse volume loss is within the range of normal for patient age. Normal parenchymal signal is preserved. There is no diffusion restriction. There is no abnormal enhancement within the brain. Cerebral ventricles: Normal. No ventriculomegaly. Bones/joints: Unremarkable. Paranasal sinuses: There is mild ethmoid mucosal thickening. Mastoid air cells: Normal as visualized. No mastoid effusion. Orbital cavity: Unremarkable. Soft tissues: Unremarkable. IMPRESSION: No acute intracranial abnormality. Electronically signed by: Miguelina Longoria On 01/30/2021 11:37:13 AM
== END ==
LOC: M PLARAD 08:27
PROVIDERS: ATTEND Nurse Practitioner Family
DX: R55 Syncope and collapse (principal)

== ENCOUNTER → 2021-03-23 | Outpatient (REF) | payer BC | LOC: M SFHCWAGY 19:29 | PROVIDERS: ATTEND Advanced Practice Midwife | DX: Z12.4 Encounter for screening for malignant neoplasm of cervix (principal) | CPT/HCPCS: 87624; G0123 ==

== ENCOUNTER → 2021-03-23 | Outpatient (CLI) | payer BC ==
--- NOTE | 2021-03-23 16:01 | REPMRS ---
Patient History The patient states she had a clinical breast exam in February 2021. No known family history of cancer. Patient states no breast complaints today. Patient has signed MRS History Sheet. Digital Woman Screen Mammo: March 23, 2021 - Exam #: [id number] Bilateral CC and MLO view(s) were taken. Technologist: Gisela Krishna, Technologist Prior study comparison: April 18, 2017, digital woman screen mammo performed at [facility]. July 16, 2014, digital woman screen mammo performed at [facility]. FINDINGS: There are scattered fibroglandular densities. Screening. Digital screening (2D) mammography was performed bilaterally in the CC and MLO projections. Additionally, breast tomosynthesis (3D mammography) was performed bilaterally in the CC and MLO projections. Todays exam was compared to the prior exam/exams. By history, the patient has no complaints of a palpable breast abnormality or other significant breast complaints. The Volpara volumetric breast density category is B, there are scattered areas of fibroglandular densities. The breasts are unchanged in size and shape. There are no aleksandr-soft tissue densities or spiculated masses. There is no internal architectural distortion. There are no suspicious aleksandr-calcific clusters. Skin thickening or nipple retraction is not present. IMPRESSION: BI-RADS Category 2- Benign Findings. There is no evidence of malignant alteration of the breasts. Followup examination recommended in one year. The lifetime Tyrer-Cuzick score is 9.5% This mammogram was read with the assistance of [employer],an FDA approved computer aided detection system for mammography. Negative x-ray reports should not delay surgical consultation if a dominant or clinically suspicious mass is present. Not all breast cancers can be identified by mammography. Therefore, we recommend that you continue to perform regular breast self-examination and physical examination and then promptly contact your physician of any concerns or changes. Adenosis and dense breasts may obscure an underlying neoplasm. No significant changes when compared with prior studies. Assessment: BI-RADS/ACR category 2 mammogram. Benign Findings. Recommendation Routine screening mammogram of both breasts in 1 year. Electronically Signed By: Diego Arenas MD 03/23/21 [id number]
== END ==
LOC: M WHC 12:53
PROVIDERS: ATTEND Advanced Practice Midwife
DX: Z12.31 Encounter for screening mammogram for malignant neoplasm of breast (principal)

== ENCOUNTER → 2021-03-23 | Outpatient (CLI) | payer BC ==
[2021-03-23 19:09] LABS: HEMATOCRIT 34.4 % (36.0-47.0); HEMOGLOBIN 9.6 g/dl (12.0-15.5); MEAN CORPUSCULAR HEMOGLOBIN 23.1 pg (27.0-33.0); MEAN CORPUSCULAR HGB CONC 27.9 g/dl (32.0-36.5); MEAN CORPUSCULAR VOLUME 82.9 fl (80.0-96.0); RED BLOOD COUNT 4.15 10^6/uL (4.00-5.40); WHITE BLOOD COUNT 9.6 10^3/uL (4.0-10.0)
== END ==
LOC: M PLALAB 15:08
PROVIDERS: ATTEND Advanced Practice Midwife
DX: N92.0 Excessive and frequent menstruation with regular cycle (principal)

== ENCOUNTER → 2021-03-30 | Outpatient (REF) | payer BC | LOC: M SFHCWAGY 13:21 | PROVIDERS: ATTEND Advanced Practice Midwife | DX: N92.0 Excessive and frequent menstruation with regular cycle (principal) ==

== ENCOUNTER → 2021-03-30 | Outpatient (CLI) | payer BC ==
--- NOTE | 2021-03-30 12:29 | REP ---
INDICATION: MENORRHAGIA. COMPARISON: 12/24/2016. TECHNIQUE: Transabdominal and transvaginal scanning performed. Study is limited due to body habitus and bowel gas. FINDINGS: Uterine dimensions are 9.8 x 4.7 x 5.5 cm. Endometrial echo is 5 mm in AP dimension and centrally placed. The bladder measures 8.9 x 4.8 x 5.5cm. The ovaries could not be visualized. There is no adnexal mass identified. No free fluid is seen in the cul-de-sac. IMPRESSION: Limited exam due to body habitus and bowel gas. The uterus and endometrium appear unremarkable. The ovaries could not be visualized. No evidence of adnexal mass or free fluid. <Electronically signed by Jw Hess > 03/30/21 [id number]
== END ==
LOC: M WHC 09:52
PROVIDERS: ATTEND Advanced Practice Midwife
DX: N92.0 Excessive and frequent menstruation with regular cycle (principal)

== ENCOUNTER → 2021-10-09 | Outpatient (CLI) | payer BC ==
[~2021-10-09] MED LIST changes: +HYDR-3490 PO; +IFERCAP PO; -LEVO500T3 PO; +LEVO500T4 PO; +LISI10TA22 PO; +MIRT1TAB17 PO; +OXAZ15CA4 PO; +ROSU5TAB5 PO
== END ==
LOC: M LABSMTC 10:02
PROVIDERS: ATTEND Anesthesiology
DX: Z01.812 Encounter for preprocedural laboratory examination (principal); Z20.822 Contact with and (suspected) exposure to COVID-19

== ENCOUNTER 2021-10-14 09:24 | Day surgery (SDC) | payer BC ==
[~2021-10-14] VITALS: Ht 172.7 cm; Wt 88.0 kg
[~2021-10-14 09:24] MED LIST changes: +LR 1,000 ML IV ONE
[2021-10-14 09:55] LABS: HEMATOCRIT 33.2 % (36.0-47.0); HEMOGLOBIN 9.9 g/dl (12.0-15.5); MEAN CORPUSCULAR HEMOGLOBIN 23.9 pg (27.0-33.0); MEAN CORPUSCULAR HGB CONC 29.8 g/dl (32.0-36.5); PLATELET COUNT, AUTOMATED 190 10^3/uL (150-450); RED BLOOD COUNT 4.15 10^6/uL (4.00-5.40); WHITE BLOOD COUNT 6.5 10^3/uL (4.0-10.0)
[2021-10-14] MEDS ORDERED: dexameTHASONE 4 MG/ML 1ML VIAL (J1100 PER 1MG) As Ordered ONE (10:55)
[2021-10-14] MEDS ORDERED: MIDAZOLAM INJ 2MG/2ML VIAL (J2250 PER 1MG) As Ordered ONE ×2 (10:55→12:18)
[2021-10-14] MEDS ORDERED: LIDOCAINE 2% 100MG/5ML SDV (FOR ANES.) As Ordered ONE (10:55)
[2021-10-14] MEDS ORDERED: fentaNYL 100 MCG/2 ML INJECTION As Ordered ONE (10:55)
[2021-10-14] MEDS ORDERED: propofoL 200 MG/20 ML VIAL As Ordered ONE (10:55)
[2021-10-14] MEDS ORDERED: ONDANSETRON 4MG/2ML VIAL As Ordered ONE (10:55)
[2021-10-14] MEDS ORDERED: LEVONORGESTREL 52MG (MIRENA) IUD As Ordered ONE (12:06)
[2021-10-14] MEDS ORDERED: SILVER NITRATE APPLICATOR (1 = QTY 10) As Ordered ONE (12:06)
[2021-10-14] MEDS ORDERED: KETOROLAC 60MG 2ML VIAL As Ordered ONE (12:47)
[2021-10-14] MEDS ORDERED: ACETAMINOPHEN 1000MG 100ML IV BTL (OFIRMEV) (J0131 PER 10MG) As Ordered ONE (12:47)
[2021-10-14] MEDS ORDERED: METOCLOPRAMIDE INJ 10MG/2ML VIAL (J2765 PER 1) IV PRN (13:30)
[2021-10-14] MEDS ORDERED: ONDANSETRON 4MG/2ML VIAL IV PRN (13:30)
[2021-10-14] MEDS ORDERED: LR 1,000 ML IV SCH (13:30)
[2021-10-14] MEDS ORDERED: fentaNYL 100 MCG/2 ML INJECTION IV PRN (13:30)
[2021-10-14] MEDS: oxyCODONE 5MG TAB PO PRN ×2 (13:46→14:25)
[2021-10-14 13:53] VITALS: BP 138/84
== END 2021-10-14 14:55 | disposition home or self-care (01) ==
LOC: M SDC 09:24
PROVIDERS: ATTEND Obstetrics & Gynecology
DX: N84.0 Polyp of corpus uteri (principal); N85.00 Endometrial hyperplasia, unspecified; K21.9 Gastro-esophageal reflux disease without esophagitis; I10 Essential (primary) hypertension; E78.2 Mixed hyperlipidemia; F43.10 Post-traumatic stress disorder, unspecified; F41.9 Anxiety disorder, unspecified; F32.9 Major depressive disorder, single episode, unspecified; Z79.899 Other long term (current) drug therapy; F17.218 Nicotine dependence, cigarettes, with other nicotine-induced disorders; Z88.0 Allergy status to penicillin; Z88.5 Allergy status to narcotic agent
CPT/HCPCS: 36415; 58300; 58558; 85027; 86850; 86900; 86901; 88305; J0131; J1100; J1885; J2250; J2405; J3010; J7298

== ENCOUNTER 2021-12-20 13:16 | Inpatient (IN) | payer BC ==
[~2021-12-20] VITALS: Ht 170.2 cm; Wt 83.7 kg
[2021-12-20] MEDS: PANTOPRAZOLE 40MG TAB (PROTONIX) PO SCH (09:00)
[~2021-12-20 13:16] MED LIST changes: +FOLIC ACID 1 MG TAB PO SCH; -LR 1,000 ML IV ONE; +MULTIVITAMINS/MINERALS THERAP 1 TAB PO SCH
[2021-12-20 14:49] LABS: BASO % 0.4 % (0.0-1.0); EOS % 0.1 % (0.0-3.0); HEMATOCRIT 28.5 % (36.0-47.0); HEMOGLOBIN 9.2 g/dl (12.0-15.5); LYMPH # 1.3 10^3/uL (1.5-5.0); LYMPH % 17.7 % (24.0-44.0); MEAN CORPUSCULAR HEMOGLOBIN 25.1 pg (27.0-33.0); MEAN CORPUSCULAR HGB CONC 32.3 g/dl (32.0-36.5); MEAN CORPUSCULAR VOLUME 77.7 fl (80.0-96.0); MONO # 0.7 10^3/uL (0.0-0.8); MONO % 9.6 % (2.0-8.0); NEUTROPHILS # 5.2 10^3/uL (1.5-8.5); NEUTROPHILS % 71.8 % (36.0-66.0); PLATELET COUNT, AUTOMATED 243 10^3/uL (150-450); RED BLOOD COUNT 3.67 10^6/uL (4.00-5.40); WHITE BLOOD COUNT 7.2 10^3/uL (4.0-10.0)
[2021-12-20 15:14] LABS: OSMOLALITY SERUM 296 MOSM/KG (275-295)
[2021-12-20 15:14] LABS: AMPHETAMINES LEVEL URINE NEGATIVE (NEGATIVE); BARBITURATES URINE NEGATIVE (NEGATIVE); BENZODIAZEPINES URINE POSITIVE (NEGATIVE); CANNABINOIDS URINE NEGATIVE (NEGATIVE); COCAINE METABOLITE URINE NEGATIVE (NEGATIVE); METHADONE URINE NEGATIVE (NEGATIVE); OPIATES URINE NEGATIVE (NEGATIVE); PHENCYCLIDINE URINE NEGATIVE (NEGATIVE)
[2021-12-20 15:22] LABS: CREATININE,RANDOM URINE 65.7 MG/DL
[2021-12-20 15:32] LABS: ACETAMINOPHEN LEVEL < 2.0 UG/ML (10.0-30.0); ALBUMIN 3.3 GM/DL (3.2-5.2); ALT/SGPT 51 U/L (12-78); BILIRUBIN,DIRECT 0.4 MG/DL (0.0-0.2); BILIRUBIN,TOTAL 0.7 MG/DL (0.2-1.0); BLOOD UREA NITROGEN 5 MG/DL (7-18); CALCIUM LEVEL 8.9 MG/DL (8.5-10.1); CARBON DIOXIDE LEVEL 27 MEQ/L (21-32); CHLORIDE LEVEL 81 MEQ/L (98-107); ETHYL ALCOHOL (ETHANOL) 0.227 % (0.000-0.010); FREE T4 0.93 NG/DL (0.76-1.46); GLOMERULAR FILTRATION RATE > 60.0 (>58); GLUCOSE, FASTING 98 MG/DL (70-100); SALICYLATE LEVEL < 1.7 MG/DL (5.0-30.0); SODIUM LEVEL 120 MEQ/L (136-145); TOTAL PROTEIN 6.9 GM/DL (6.4-8.2)
[2021-12-20] MEDS ORDERED: NS 1,000 ML IV SCH (16:05)
[2021-12-20 17:30] LABS: RSV AMPLIFICATION NEGATIVE (NEGATIVE)
[2021-12-20] MEDS ORDERED: POTASSIUM CHLORIDE 10MEQ SR TABLET PO ONE ×2 (17:55→20:00)
[2021-12-20] MEDS ORDERED: LORazepam 2 MG TAB PO PRN ×2 (18:00→18:15)
[2021-12-20] MEDS ORDERED: LEXA1TAB PO (18:41)
[2021-12-20] MEDS ORDERED: ESOM40CA35 PO (18:41)
[2021-12-20] MEDS ORDERED: HOME MED LIST COMPLETE! XX SCH (18:45)
[2021-12-20] MEDS ORDERED: ONDANSETRON 4MG 2ML VIAL IV PRN (18:50)
[2021-12-20] MEDS: GASTROGRAFIN SOLUTION 30ML PO SCH ×2 (19:38→20:10)
[2021-12-20 20:01] LABS: BLOOD UREA NITROGEN 5 MG/DL (7-18); CALCIUM LEVEL 8.8 MG/DL (8.5-10.1); CARBON DIOXIDE LEVEL 26 MEQ/L (21-32); CHLORIDE LEVEL 83 MEQ/L (98-107); CREATININE FOR GFR 0.66 MG/DL (0.55-1.30); FERRITIN 29 NG/ML (8-252); GLOMERULAR FILTRATION RATE > 60.0 (>58); GLUCOSE, FASTING 124 MG/DL (70-100); IRON (FE) 25 UG/DL (50-170); LIPASE 760 U/L (73-393); MAGNESIUM LEVEL 1.1 MG/DL (1.8-2.4); POTASSIUM SERUM 2.7 MEQ/L (3.5-5.1); SODIUM LEVEL 122 MEQ/L (136-145); TOTAL IRON BINDING CAPACITY 357 UG/DL (250-450)
[2021-12-20] MEDS: OXAZEPAM 15MG CAP PO SCH (21:00)
[2021-12-20] MEDS ORDERED: THIAMINE 100 MG TAB PO SCH (21:00)
[2021-12-20 21:27] VITALS: BP 110/74
[2021-12-20 21:57] VITALS: BP 110/74
[2021-12-20] MEDS: KCL 40MEQ in NS 1000ML 1,000 ML IV SCH (23:25)
[2021-12-20] MEDS: metroNIDAZOLE 500 MG in IV 1 EA IV SCH (23:28)
[2021-12-20] MEDS: POTASSIUM CHLORIDE 10MEQ SR TABLET PO SCH ×2 (23:28→23:40)
[2021-12-20 23:40] VITALS: BP 116/76
[2021-12-21] MEDS ORDERED: MIDAZOLAM INJ 2MG/2ML VIAL (J2250 PER 1MG) IV ONE (00:10)
[2021-12-21 00:26] LABS: BLOOD UREA NITROGEN 5 MG/DL (7-18); CARBON DIOXIDE LEVEL 27 MEQ/L (21-32); CHLORIDE LEVEL 85 MEQ/L (98-107); CREATININE FOR GFR 0.61 MG/DL (0.55-1.30); GLOMERULAR FILTRATION RATE > 60.0 (>58); GLUCOSE, FASTING 106 MG/DL (70-100); MAGNESIUM LEVEL 1.2 MG/DL (1.8-2.4); POTASSIUM SERUM 3.2 MEQ/L (3.5-5.1); SODIUM LEVEL 122 MEQ/L (136-145)
[2021-12-21] MEDS ORDERED: diazePAM 10MG/2ML SYRINGE (J3360 PER 5MG) IV ONE (00:45)
[2021-12-21] MEDS: CIPROFLOXACIN 400 MG in IV 1 EA IV SCH ×3 (00:59→23:54)
[2021-12-21] MEDS: metroNIDAZOLE 500 MG in IV 1 EA IV SCH ×3 (05:28→22:08)
[2021-12-21 05:58] VITALS: BP 131/81
[2021-12-21 06:18] LABS: HEMOGLOBIN 9.6 g/dl (12.0-15.5); MEAN CORPUSCULAR HEMOGLOBIN 25.7 pg (27.0-33.0); MEAN CORPUSCULAR VOLUME 80.4 fl (80.0-96.0); PLATELET COUNT, AUTOMATED 275 10^3/uL (150-450); RED BLOOD COUNT 3.73 10^6/uL (4.00-5.40); WHITE BLOOD COUNT 7.2 10^3/uL (4.0-10.0)
[2021-12-21 06:30] VITALS: BP 131/81
[2021-12-21 06:40] LABS: BLOOD UREA NITROGEN 6 MG/DL (7-18); CALCIUM LEVEL 9.2 MG/DL (8.5-10.1); CARBON DIOXIDE LEVEL 27 MEQ/L (21-32); CHLORIDE LEVEL 90 MEQ/L (98-107); CREATININE FOR GFR 0.67 MG/DL (0.55-1.30); GLOMERULAR FILTRATION RATE > 60.0 (>58); GLUCOSE, FASTING 105 MG/DL (70-100); MAGNESIUM LEVEL 1.2 MG/DL (1.8-2.4); POTASSIUM SERUM 4.4 MEQ/L (3.5-5.1); SODIUM LEVEL 127 MEQ/L (136-145)
[2021-12-21] MEDS: PANTOPRAZOLE 40MG TAB (PROTONIX) PO SCH (08:53)
[2021-12-21] MEDS: ESCITALOPRAM OXALATE 10 MG TAB (LEXAPRO) PO SCH (08:53)
[2021-12-21] MEDS: OXAZEPAM 15MG CAP PO SCH ×2 (08:53→22:07)
[2021-12-21] MEDS: ENOXAPARIN 40MG/0.4ML SYRINGE (J1650 PER 10MG) SC SCH (08:53)
[2021-12-21 11:38] LABS: VITAMIN B12 LEVEL 601 PG/ML (247-911)
[2021-12-21 11:39] LABS: FOLATE 6.8 NG/ML (>5.4)
[2021-12-21] MEDS: KCL 40MEQ in NS 1000ML 1,000 ML IV SCH (13:10)
[2021-12-21] MEDS: MAG SULF 1GM/100ML (MAG RUN) 1 GM in IV 1 EA IV SCH ×4 (13:34→17:41)
[2021-12-21 14:00] VITALS: BP 119/72
[2021-12-21 14:29] LABS: BLOOD UREA NITROGEN 5 MG/DL (7-18); CARBON DIOXIDE LEVEL 29 MEQ/L (21-32); CHLORIDE LEVEL 96 MEQ/L (98-107); CREATININE FOR GFR 0.71 MG/DL (0.55-1.30); GLOMERULAR FILTRATION RATE > 60.0 (>58); GLUCOSE, FASTING 102 MG/DL (70-100); POTASSIUM SERUM 4.5 MEQ/L (3.5-5.1); SODIUM LEVEL 131 MEQ/L (136-145)
[2021-12-21 19:51] LABS: BLOOD UREA NITROGEN 4 MG/DL (7-18); CHLORIDE LEVEL 95 MEQ/L (98-107); CREATININE FOR GFR 0.72 MG/DL (0.55-1.30); GLOMERULAR FILTRATION RATE > 60.0 (>58); GLUCOSE, FASTING 125 MG/DL (70-100); POTASSIUM SERUM 4.2 MEQ/L (3.5-5.1); SODIUM LEVEL 130 MEQ/L (136-145)
[2021-12-21 19:52] LABS: CALCIUM LEVEL 9.1 MG/DL (8.5-10.1); CARBON DIOXIDE LEVEL 28 mmol/L (20-29)
[2021-12-21 21:10] LABS: MAGNESIUM LEVEL 1.3 MG/DL (1.8-2.4)
[2021-12-21 22:00] VITALS: BP 118/74
[2021-12-22 05:30] VITALS: BP 111/66
[2021-12-22 06:00] VITALS: BP 111/66
[2021-12-22 06:11] LABS: HEMATOCRIT 27.9 % (36.0-47.0); HEMOGLOBIN 8.3 g/dl (12.0-15.5); MEAN CORPUSCULAR HEMOGLOBIN 25.3 pg (27.0-33.0); MEAN CORPUSCULAR HGB CONC 29.7 g/dl (32.0-36.5); MEAN CORPUSCULAR VOLUME 85.1 fl (80.0-96.0); PLATELET COUNT, AUTOMATED 264 10^3/uL (150-450); RED BLOOD COUNT 3.28 10^6/uL (4.00-5.40); WHITE BLOOD COUNT 5.9 10^3/uL (4.0-10.0)
[2021-12-22] MEDS: metroNIDAZOLE 500 MG in IV 1 EA IV SCH (06:20)
[2021-12-22 06:58] LABS: BLOOD UREA NITROGEN 4 MG/DL (7-18); CREATININE FOR GFR 0.75 MG/DL (0.55-1.30); GLOMERULAR FILTRATION RATE > 60.0 (>58); GLUCOSE, FASTING 97 MG/DL (70-100); POTASSIUM SERUM 4.5 MEQ/L (3.5-5.1); SODIUM LEVEL 136 MEQ/L (136-145)
[2021-12-22 06:59] LABS: CALCIUM LEVEL 8.5 MG/DL (8.5-10.1); CARBON DIOXIDE LEVEL 27 mmol/L (20-29); CHLORIDE LEVEL 101 MEQ/L (98-107)
[2021-12-22 08:25] LABS: MAGNESIUM LEVEL 2.1 MG/DL (1.8-2.4)
[2021-12-22] MEDS: PANTOPRAZOLE 40MG TAB (PROTONIX) PO SCH (09:01)
[2021-12-22] MEDS: OXAZEPAM 15MG CAP PO SCH (09:02)
[2021-12-22] MEDS: ESCITALOPRAM OXALATE 10 MG TAB (LEXAPRO) PO SCH (09:02)
[2021-12-22] MEDS: ENOXAPARIN 40MG/0.4ML SYRINGE (J1650 PER 10MG) SC SCH (09:02)
[2021-12-22 09:03] VITALS: BP 111/66
[2021-12-22] MEDS ORDERED: METR-265 PO (09:07)
[2021-12-22] MEDS ORDERED: CIPR500T39 PO (09:07)
== END 2021-12-22 11:27 | disposition home or self-care (01) | DRG 249 ==
LOC: M ED 13:16 → M ED INP 18:14 → M MSPAV 21:24
PROVIDERS: ADMIT Internal Medicine; ATTEND Internal Medicine
DX: K52.9 Noninfective gastroenteritis and colitis, unspecified (principal); E87.2 Acidosis; K35.80 Unspecified acute appendicitis; E87.1 Hypo-osmolality and hyponatremia; E83.42 Hypomagnesemia; N28.1 Cyst of kidney, acquired; K70.0 Alcoholic fatty liver; Z90.49 Acquired absence of other specified parts of digestive tract; E87.6 Hypokalemia; I10 Essential (primary) hypertension; K21.9 Gastro-esophageal reflux disease without esophagitis; M19.90 Unspecified osteoarthritis, unspecified site; E78.5 Hyperlipidemia, unspecified; R29.6 Repeated falls; G47.00 Insomnia, unspecified; F34.1 Dysthymic disorder; F41.9 Anxiety disorder, unspecified; F32.A Depression, unspecified; F40.00 Agoraphobia, unspecified; M54.50 Low back pain, unspecified; G89.29 Other chronic pain; F10.10 Alcohol abuse, uncomplicated; F17.210 Nicotine dependence, cigarettes, uncomplicated; D53.9 Nutritional anemia, unspecified; Z20.822 Contact with and (suspected) exposure to COVID-19; Z79.899 Other long term (current) drug therapy; Z88.0 Allergy status to penicillin; Z88.5 Allergy status to narcotic agent

== ENCOUNTER 2022-05-05 18:09 | Emergency (ER) | payer BC ==
[~2022-05-05] VITALS: Ht 172.7 cm; Wt 82.7 kg
[~2022-05-05 18:09] MED LIST changes: +CIPR500T39 PO; +ESOM40CA35 PO; -FOLIC ACID 1 MG TAB PO SCH; +LEVO1TAB39 PO; -LEVO500T4 PO; +LEXA1TAB PO; +METR-265 PO; -MULTIVITAMINS/MINERALS THERAP 1 TAB PO SCH
[2022-05-05] MEDS ORDERED: LORazepam 2 MG TAB PO PRN (18:55)
[2022-05-05 18:57] LABS: HEMATOCRIT 34.5 % (36.0-47.0); HEMOGLOBIN 10.6 g/dl (12.0-15.5); MEAN CORPUSCULAR HEMOGLOBIN 26.4 pg (27.0-33.0); MEAN CORPUSCULAR HGB CONC 30.7 g/dl (32.0-36.5); MEAN CORPUSCULAR VOLUME 85.8 fl (80.0-96.0); PLATELET COUNT, AUTOMATED 185 10^3/uL (150-450); RED BLOOD COUNT 4.02 10^6/uL (4.00-5.40); WHITE BLOOD COUNT 4.3 10^3/uL (4.0-10.0)
[2022-05-05 19:17] LABS: HCG, SERUM QUALITATIVE NEGATIVE (NEGATIVE)
[2022-05-05 19:18] LABS: AMPHETAMINES LEVEL URINE NEGATIVE (NEGATIVE); BARBITURATES URINE NEGATIVE (NEGATIVE); BENZODIAZEPINES URINE NEGATIVE (NEGATIVE); CANNABINOIDS URINE NEGATIVE (NEGATIVE); COCAINE METABOLITE URINE NEGATIVE (NEGATIVE); METHADONE URINE NEGATIVE (NEGATIVE); OPIATES URINE NEGATIVE (NEGATIVE); PHENCYCLIDINE URINE NEGATIVE (NEGATIVE)
[2022-05-05 19:20] LABS: MAGNESIUM LEVEL 1.7 MG/DL (1.8-2.4)
[2022-05-05 19:22] LABS: ACETAMINOPHEN LEVEL < 2.0 UG/ML (10.0-20.0); ALBUMIN 3.5 G/DL (3.2-5.2); ALKALINE PHOSPHATASE 85 U/L (46-116); ALT/SGPT 33 U/L (7.0-40); AST/SGOT 86 U/L (<34); BILIRUBIN,TOTAL 0.3 MG/DL (0.3-1.2); BLOOD UREA NITROGEN 11 MG/DL (9-23); CALCIUM LEVEL 8.3 MG/DL (8.5-10.1); CARBON DIOXIDE LEVEL 29 MMOL/L (20-31); CHLORIDE LEVEL 103 MMOL/L (98-107); CREATININE FOR GFR 0.61 MG/DL (0.55-1.30); GLOMERULAR FILTRATION RATE > 60.0 (>58); GLUCOSE, FASTING 107 MG/DL (60-100); POTASSIUM SERUM 3.9 MMOL/L (3.5-5.1); SALICYLATE LEVEL < 3.0 MG/DL (<30); SODIUM LEVEL 140 MMOL/L (136-145); TOTAL PROTEIN 7.5 G/DL (5.7-8.2)
[2022-05-05 19:23] LABS: BILIRUBIN,DIRECT 0.1 MG/DL (<0.4)
[2022-05-05 19:25] LABS: THYROID STIMULATING HORMONE 1.349 uIU/ML (0.55-4.78)
[2022-05-05 19:32] LABS: ETHYL ALCOHOL (ETHANOL) 0.526 % (0.000-0.010)
[2022-05-05] MEDS ORDERED: MULTIVITAMIN -ADULT INJECTION 10 ML, THIAMINE INJection 100 MG, FOLIC ACID 1 MG in NS 1... IV ONE (20:05)
[2022-05-05] MEDS ORDERED: NS 1,000 ML IV ONE (20:05)
[2022-05-05] MEDS ORDERED: LISI40TA4 PO (20:54)
[2022-05-05] MEDS ORDERED: ERGO500029 PO (20:55)
[2022-05-05] MEDS ORDERED: HYDR-3363 PO (20:55)
[2022-05-05] MEDS ORDERED: HOME MED LIST COMPLETE! XX SCH (20:55)
[2022-05-06 05:31] VITALS: BP 133/80
[2022-05-06] MEDS ORDERED: FOLIC ACID 1MG TAB PO SCH (09:00)
[2022-05-06] MEDS ORDERED: THIAMINE 100 MG TAB PO SCH (09:00)
[2022-05-06] MEDS ORDERED: MULTIVITAMINS/MINERALS THERAP 1 TAB PO SCH (09:00)
== END 2022-05-06 06:58 | disposition home or self-care (01) ==
LOC: M ED 18:09
DX: F10.129 Alcohol abuse with intoxication, unspecified (principal); F32.A Depression, unspecified; I10 Essential (primary) hypertension; K21.9 Gastro-esophageal reflux disease without esophagitis; F40.00 Agoraphobia, unspecified; E78.5 Hyperlipidemia, unspecified; F17.200 Nicotine dependence, unspecified, uncomplicated; Z88.0 Allergy status to penicillin; Z88.5 Allergy status to narcotic agent; Z79.811 Long term (current) use of aromatase inhibitors; Z79.899 Other long term (current) drug therapy
CPT/HCPCS: 70450; 80048; 80076; 80143; 80307; 82077; 83735; 84443; 84703; 85027; 87635; 96365; 96366; 99285; J3411

== ENCOUNTER 2022-07-15 17:25 | Inpatient (IN) | payer BC ==
[~2022-07-15] VITALS: Ht 170.2 cm; Wt 82.5 kg
[~2022-07-15 17:25] MED LIST changes: +ERGO500029 PO; +HYDR-3363 PO; +LISI40TA4 PO
[2022-07-15 18:41] LABS: HEMATOCRIT 37.6 % (36.0-47.0); HEMOGLOBIN 11.7 g/dl (12.0-15.5); MEAN CORPUSCULAR HEMOGLOBIN 27.5 pg (27.0-33.0); MEAN CORPUSCULAR HGB CONC 31.1 g/dl (32.0-36.5); MEAN CORPUSCULAR VOLUME 88.5 fl (80.0-96.0); PLATELET COUNT, AUTOMATED 225 10^3/uL (150-450); RED BLOOD COUNT 4.25 10^6/uL (4.00-5.40); WHITE BLOOD COUNT 5.6 10^3/uL (4.0-10.0)
[2022-07-15 19:11] LABS: AMPHETAMINES LEVEL URINE NEGATIVE (NEGATIVE); BARBITURATES URINE NEGATIVE (NEGATIVE); BENZODIAZEPINES URINE NEGATIVE (NEGATIVE); CANNABINOIDS URINE NEGATIVE (NEGATIVE); COCAINE METABOLITE URINE NEGATIVE (NEGATIVE); METHADONE URINE NEGATIVE (NEGATIVE); OPIATES URINE NEGATIVE (NEGATIVE); PHENCYCLIDINE URINE NEGATIVE (NEGATIVE)
[2022-07-15 19:15] LABS: ACETAMINOPHEN LEVEL < 2.0 UG/ML (10.0-20.0); SALICYLATE LEVEL < 3.0 MG/DL (<30)
[2022-07-15 19:18] LABS: ALBUMIN 3.5 G/DL (3.2-5.2); ALKALINE PHOSPHATASE 90 U/L (46-116); ALT/SGPT 36 U/L (7.0-40); AST/SGOT 99 U/L (<34); BILIRUBIN,DIRECT 0.2 MG/DL (<0.4); BILIRUBIN,TOTAL 0.3 MG/DL (0.3-1.2); BLOOD UREA NITROGEN 10 MG/DL (9-23); CALCIUM LEVEL 8.7 MG/DL (8.5-10.1); CARBON DIOXIDE LEVEL 26 MMOL/L (20-31); CHLORIDE LEVEL 102 MMOL/L (98-107); CREATININE FOR GFR 0.67 MG/DL (0.55-1.30); GLOMERULAR FILTRATION RATE > 60.0 (>58); GLUCOSE, FASTING 94 MG/DL (60-100); POTASSIUM SERUM 4.1 MMOL/L (3.5-5.1); SODIUM LEVEL 139 MMOL/L (136-145); THYROID STIMULATING HORMONE 0.782 uIU/ML (0.55-4.78); TOTAL PROTEIN 7.2 G/DL (5.7-8.2)
[2022-07-15 19:29] LABS: ETHYL ALCOHOL (ETHANOL) 0.444 % (0.000-0.010)
[2022-07-15 19:33] LABS: HCG, SERUM QUALITATIVE NEGATIVE (NEGATIVE)
[2022-07-15] MEDS ORDERED: ROSU5TAB5 PO (19:34)
[2022-07-15] MEDS ORDERED: MIRT1TAB17 PO (19:34)
[2022-07-15] MEDS ORDERED: AMLO1TAB24 PO (19:34)
[2022-07-15] MEDS ORDERED: LORazepam 2 MG TAB PO STA (20:57)
[2022-07-15] MEDS ORDERED: ONDANSETRON 4MG ORAL DISINTEGRATING TAB PO ONE (21:00)
[2022-07-16] MEDS ORDERED: OXAZEPAM 15MG CAP PO ONE (08:00)
[2022-07-16] MEDS: THIAMINE 100 MG TAB PO SCH ×2 (09:00→20:45)
[2022-07-16] MEDS ORDERED: amLODIPine 5 MG TAB PO ONE (09:30)
[2022-07-16] MEDS ORDERED: lisinopriL 40MG TAB PO ONE (09:30)
[2022-07-16] MEDS ORDERED: HOME MED LIST COMPLETE! XX SCH (11:15)
[2022-07-16] MEDS ORDERED: MAALOX 30 ML SUSP *UDC PO PRN (12:25)
[2022-07-16] MEDS ORDERED: IBUPROFEN 400MG TAB PO PRN (12:25)
[2022-07-16] MEDS ORDERED: traZODone 50 MG TAB PO PRN (12:25)
[2022-07-16] MEDS ORDERED: diphenhydrAMINE 25MG CAP PO PRN (12:25)
[2022-07-16] MEDS ORDERED: MOM 30ML SUSPENSION UDC PO PRN (12:25)
[2022-07-16] MEDS ORDERED: METOPROLOL TART 50 MG TAB PO ONE (13:05)
[2022-07-16] MEDS: NICOTINE 21MG/24HR 1 EA TRANSDERMAL TD SCH (13:54)
[2022-07-16 18:18] VITALS: BP 142/104
[2022-07-16 18:21] VITALS: BP 142/104
[2022-07-16] MEDS ORDERED: LORazepam 2 MG TAB PO ONE (18:40)
[2022-07-16] MEDS: MULTIVITAMINS/MINERALS THERAP 1 TAB PO SCH (18:48)
[2022-07-16] MEDS: ESCITALOPRAM OXALATE 10 MG TAB (LEXAPRO) PO SCH (18:48)
[2022-07-16] MEDS: FOLIC ACID 1MG TAB PO SCH (18:48)
[2022-07-16] MEDS: OXAZEPAM 15MG CAP PO SCH (20:45)
[2022-07-16 22:15] VITALS: BP 123/83
[2022-07-17 06:29] VITALS: BP 129/82
[2022-07-17] MEDS: MULTIVITAMINS/MINERALS THERAP 1 TAB PO SCH (08:48)
[2022-07-17] MEDS: ESCITALOPRAM OXALATE 10 MG TAB (LEXAPRO) PO SCH (08:48)
[2022-07-17] MEDS: FOLIC ACID 1MG TAB PO SCH (08:49)
[2022-07-17] MEDS: OXAZEPAM 15MG CAP PO SCH ×4 (08:51→23:58)
[2022-07-17] MEDS: THIAMINE 100 MG TAB PO SCH ×2 (08:51→20:32)
[2022-07-17] MEDS: NICOTINE 21MG/24HR 1 EA TRANSDERMAL TD SCH (08:52)
[2022-07-17] MEDS ORDERED: lisinopriL 40MG TAB PO SCH (09:00)
[2022-07-17] MEDS ORDERED: amLODIPine 5 MG TAB PO SCH (09:00)
[2022-07-17] MEDS: PANTOPRAZOLE 40MG TAB (PROTONIX) PO SCH (11:26)
[2022-07-17] MEDS: cloNIDine 0.1MG TABLET PO SCH ×2 (12:00→18:14)
[2022-07-17] MEDS ORDERED: DOXEPIN 25 MG CAP PO PRN (13:15)
[2022-07-17 14:00] VITALS: BP 144/99
[2022-07-17] MEDS ORDERED: LORazepam 2 MG TAB PO ONE (14:30)
[2022-07-17] MEDS ORDERED: atenoloL 25 MG TAB PO ONE (15:30)
[2022-07-17 16:00] VITALS: BP 137/89
[2022-07-17 16:35] VITALS: BP 124/82
[2022-07-17 18:00] VITALS: BP 134/84
[2022-07-17 20:06] VITALS: BP 110/76
[2022-07-17] MEDS: risperiDONE 0.5 MG TAB PO SCH (20:32)
[2022-07-18] VITALS (7 sets, daily range): BP systolic 100–119; BP diastolic 60–75
[2022-07-18] MEDS: cloNIDine 0.1MG TABLET PO SCH ×4 (06:00→18:00)
[2022-07-18] MEDS: OXAZEPAM 15MG CAP PO SCH ×3 (06:11→18:16)
[2022-07-18] MEDS: THIAMINE 100 MG TAB PO SCH ×2 (08:08→20:54)
[2022-07-18] MEDS: ESCITALOPRAM OXALATE 10 MG TAB (LEXAPRO) PO SCH (08:08)
[2022-07-18] MEDS: PANTOPRAZOLE 40MG TAB (PROTONIX) PO SCH (08:08)
[2022-07-18] MEDS: FOLIC ACID 1MG TAB PO SCH (08:08)
[2022-07-18] MEDS: MULTIVITAMINS/MINERALS THERAP 1 TAB PO SCH (08:08)
[2022-07-18] MEDS: NICOTINE 21MG/24HR 1 EA TRANSDERMAL TD SCH (08:08)
[2022-07-18] MEDS: atenoloL 25 MG TAB PO SCH (09:00)
[2022-07-18] MEDS: risperiDONE 0.5 MG TAB PO SCH (20:54)
[2022-07-19] VITALS (7 sets, daily range): BP systolic 115–141; BP diastolic 75–88
[2022-07-19] MEDS: OXAZEPAM 15MG CAP PO SCH ×2 (00:06→06:08)
[2022-07-19] MEDS: cloNIDine 0.1MG TABLET PO SCH ×2 (00:07→06:00)
[2022-07-19 06:48] LABS: CHOLESTEROL RISK RATIO 2.46 (<5); HDL CHOLESTEROL 58.3 MG/DL (>40); LDL CHOLESTEROL 62.5 MG/DL (<100)
[2022-07-19 07:00] LABS: HEMOGLOBIN A1c 5.2 % (4.0-6.0)
[2022-07-19] MEDS: PANTOPRAZOLE 40MG TAB (PROTONIX) PO SCH (08:15)
[2022-07-19] MEDS: FOLIC ACID 1MG TAB PO SCH (08:15)
[2022-07-19] MEDS: THIAMINE 100 MG TAB PO SCH (08:15)
[2022-07-19] MEDS: MULTIVITAMINS/MINERALS THERAP 1 TAB PO SCH (08:15)
[2022-07-19] MEDS: atenoloL 25 MG TAB PO SCH (08:16)
[2022-07-19] MEDS: ESCITALOPRAM OXALATE 10 MG TAB (LEXAPRO) PO SCH (08:16)
[2022-07-19] MEDS: NICOTINE 21MG/24HR 1 EA TRANSDERMAL TD SCH (08:17)
[2022-07-19] MEDS ORDERED: NICO21PAT TD (10:45)
[2022-07-19] MEDS ORDERED: LEXA1TAB PO (10:45)
[2022-07-19] MEDS ORDERED: RISP-7 PO (10:45)
[2022-07-19] MEDS ORDERED: ATEN25TA PO (10:45)
[2022-07-19] MEDS ORDERED: DOXE25CA PO (10:45)
== END 2022-07-19 13:02 | disposition home or self-care (01) | DRG 751 ==
LOC: M ED 17:25 → M ED INP 07-16 12:22 → M PSY 07-16 17:35
PROVIDERS: ADMIT Psychiatry & Neurology Psychiatry; ATTEND Psychiatry & Neurology Psychiatry
DX: F33.2 Major depressive disorder, recurrent severe without psychotic features (principal); F10.220 Alcohol dependence with intoxication, uncomplicated; F10.231 Alcohol dependence with withdrawal delirium; F40.01 Agoraphobia with panic disorder; F41.1 Generalized anxiety disorder; I10 Essential (primary) hypertension; K21.9 Gastro-esophageal reflux disease without esophagitis; M19.90 Unspecified osteoarthritis, unspecified site; E78.5 Hyperlipidemia, unspecified; R26.89 Other abnormalities of gait and mobility; E55.9 Vitamin D deficiency, unspecified; G47.00 Insomnia, unspecified; F34.1 Dysthymic disorder; M54.50 Low back pain, unspecified; G89.29 Other chronic pain; K76.0 Fatty (change of) liver, not elsewhere classified; D64.9 Anemia, unspecified; N32.81 Overactive bladder; G62.9 Polyneuropathy, unspecified; F17.210 Nicotine dependence, cigarettes, uncomplicated; R19.7 Diarrhea, unspecified; Z91.51 Personal history of suicidal behavior; Z79.899 Other long term (current) drug therapy; Z88.0 Allergy status to penicillin; Z88.5 Allergy status to narcotic agent; Z20.822 Contact with and (suspected) exposure to COVID-19; Z90.49 Acquired absence of other specified parts of digestive tract

== ENCOUNTER 2023-01-12 12:19 | Emergency (ER) | payer BC ==
[~2023-01-12] VITALS: Ht 170.2 cm; Wt 76.5 kg
[~2023-01-12 12:19] MED LIST changes: +AMLO1TAB24 PO; +ATEN25TA PO; +DOXE25CA PO; +NICO21PAT TD; +RISP-7 PO
[2023-01-12] MEDS ORDERED: NS 1,000 ML IV ONE ×2 (12:25→14:25)
[2023-01-12 12:46] LABS: VENOUS BASE EXCESS 0.3 (-2.0-2.0); VENOUS HCO3 25.9 MMOL/L (23.0-27.0); VENOUS O2 SATURATION 65.8 % (60.0-80.0); VENOUS PARTIAL PRESSURE CO2 45.7 mmHg (38.0-50.0); VENOUS PARTIAL PRESSURE O2 37.6 mmHg (30.0-50.0); VENOUS PH 7.371 UNITS (7.330-7.430); VENOUS TOTAL CO2 27.3 MMOL/L (24.0-28.0)
[2023-01-12 12:53] LABS: BASO % 0.3 % (0.0-1.0); EOS % 0.3 % (0.0-3.0); HEMATOCRIT 37.1 % (36.0-47.0); HEMOGLOBIN 11.9 g/dl (12.0-15.5); LYMPH # 1.5 10^3/uL (1.5-5.0); LYMPH % 21.9 % (24.0-44.0); MEAN CORPUSCULAR HEMOGLOBIN 30.5 pg (27.0-33.0); MEAN CORPUSCULAR HGB CONC 32.1 g/dl (32.0-36.5); MEAN CORPUSCULAR VOLUME 95.1 fl (80.0-96.0); MONO # 0.3 10^3/uL (0.0-0.8); MONO % 4.3 % (2.0-8.0); NEUTROPHILS # 5.1 10^3/uL (1.5-8.5); NEUTROPHILS % 73.1 % (36.0-66.0); PLATELET COUNT, AUTOMATED 181 10^3/uL (150-450)
[2023-01-12 13:25] LABS: ETHYL ALCOHOL (ETHANOL) < 0.003 % (0.000-0.010); HCG, SERUM QUALITATIVE NEGATIVE (NEGATIVE); SALICYLATE LEVEL < 3.0 MG/DL (<30)
[2023-01-12 13:26] LABS: ACETAMINOPHEN LEVEL < 2.0 UG/ML (10.0-20.0); ALBUMIN 3.2 G/DL (3.2-5.2); ALKALINE PHOSPHATASE 79 U/L (46-116); ALT/SGPT 12 U/L (7.0-40); AST/SGOT 14 U/L (<34); BILIRUBIN,DIRECT 0.1 MG/DL (<0.4); BILIRUBIN,TOTAL 0.4 MG/DL (0.3-1.2); BLOOD UREA NITROGEN 7 MG/DL (9-23); CALCIUM LEVEL 8.7 MG/DL (8.5-10.1); CARBON DIOXIDE LEVEL 27 MMOL/L (20-31); CHLORIDE LEVEL 103 MMOL/L (98-107); CREATININE FOR GFR 0.49 MG/DL (0.55-1.30); GLOMERULAR FILTRATION RATE > 60.0 (>58); GLUCOSE, FASTING 113 MG/DL (60-100); POTASSIUM SERUM 3.5 MMOL/L (3.5-5.1); SODIUM LEVEL 139 MMOL/L (136-145); TOTAL PROTEIN 6.8 G/DL (5.7-8.2)
[2023-01-12 13:28] LABS: THYROID STIMULATING HORMONE 0.526 uIU/ML (0.55-4.78)
[2023-01-12 13:31] LABS: CPK CREATINE PHOSPHOKINASE 425 U/L (34-145)
[2023-01-12 13:39] LABS: RSV AMPLIFICATION NEGATIVE (NEGATIVE)
[2023-01-12 13:40] LABS: APPEARANCE, URINE HAZY (CLEAR); BACTERIA, URINE AUTO 1+ (NEGATIVE); BILIRUBIN, URINE AUTO NEGATIVE (NEGATIVE); BLOOD, URINE BLOOD 1+ (NEGATIVE); COLOR, URINE YELLOW (YELLOW); GLUCOSE, URINE (UA) AUTO NEGATIVE (NEGATIVE); KETONE, URINE AUTO 1+ mg/dL (NEGATIVE); LEUKOCYTE ESTERASE, URINE AUTO NEGATIVE (NEGATIVE); MUCUS, URINE SMALL (NEGATIVE); NITRITE, URINE AUTO NEGATIVE (NEGATIVE); PROTEIN, URINE AUTO NEGATIVE (NEGATIVE); RBC, URINE AUTO 0 /HPF (0-3); SPECIFIC GRAVITY URINE AUTO 1.004 (1.002-1.035); SQUAMOUS EPITHELIAL CELL UR AU 9 /HPF (0-6); UROBILINOGEN, URINE AUTO 0.2 mg/dL (0.0-2.0); WBC, URINE AUTO 1 /HPF (0-3)
[2023-01-12 13:44] LABS: ACETONE/KETONE 0.8 MMOL/L (0.02-0.27)
[2023-01-12 14:00] LABS: AMPHETAMINES LEVEL URINE NEGATIVE (NEGATIVE); BARBITURATES URINE NEGATIVE (NEGATIVE); BENZODIAZEPINES URINE NEGATIVE (NEGATIVE); CANNABINOIDS URINE NEGATIVE (NEGATIVE); COCAINE METABOLITE URINE NEGATIVE (NEGATIVE); METHADONE URINE NEGATIVE (NEGATIVE); OPIATES URINE NEGATIVE (NEGATIVE); PHENCYCLIDINE URINE NEGATIVE (NEGATIVE)
[2023-01-12 15:51] LABS: PERCENT SATURATION 2.7 % (13.2-45.0)
[2023-01-12] MEDS ORDERED: IBUPROFEN 600MG TAB PO ONE (16:55)
[2023-01-12 19:05] LABS: ACETAMINOPHEN LEVEL < 2.0 UG/ML (10.0-20.0); CPK CREATINE PHOSPHOKINASE 397 U/L (34-145)
[2023-01-12 19:06] LABS: ACETONE/KETONE 1.03 MMOL/L (0.02-0.27); SALICYLATE LEVEL < 3.0 MG/DL (<30)
[2023-01-12 19:08] LABS: BLOOD UREA NITROGEN < 5 MG/DL (9-23); CALCIUM LEVEL 8.2 MG/DL (8.5-10.1); CARBON DIOXIDE LEVEL 26 MMOL/L (20-31); CHLORIDE LEVEL 107 MMOL/L (98-107); CREATININE FOR GFR 0.47 MG/DL (0.55-1.30); GLOMERULAR FILTRATION RATE > 60.0 (>58); GLUCOSE, FASTING 101 MG/DL (60-100); POTASSIUM SERUM 3.5 MMOL/L (3.5-5.1); SODIUM LEVEL 141 MMOL/L (136-145)
[2023-01-12 19:09] LABS: OSMOLALITY SERUM 344 MOSM/KG (275-295)
[2023-01-12 20:15] VITALS: BP 141/91; O2SAT 97
[2023-01-14 18:10] LABS: ACETONE 0.194 g/dL (0.000-0.010); ISOPROPANOL 0.097 g/dL (0.000-0.010); METHANOL <.010 g/dL (0.000-0.010)
== END 2023-01-12 21:01 | disposition left against medical advice (07) ==
LOC: M ED 12:19
DX: F10.129 Alcohol abuse with intoxication, unspecified (principal); E88.89 Other specified metabolic disorders; Z53.9 Procedure and treatment not carried out, unspecified reason; I10 Essential (primary) hypertension; E78.5 Hyperlipidemia, unspecified; J45.909 Unspecified asthma, uncomplicated; F32.A Depression, unspecified; Z79.899 Other long term (current) drug therapy; Z88.0 Allergy status to penicillin; Z88.5 Allergy status to narcotic agent
CPT/HCPCS: 36415; 71045; 80048; 80076; 80143; 80307; 81001; 82010; 82077; 82550; 82803; 83550; 83930; 84443; 84703; 85025; 87631; 93005; 93041; 94760; 96360; 96361; 99285; G0480